=== PATIENT | male | born 1945 | race Caucasian/White ===

== ENCOUNTER 2020-08-06 16:44 | Emergency (ER) | payer OTHER, SELFPAY ==
[2020-08-06 16:46] VITALS: BP 134/66; PULSE 79; RESP 20; TEMP 36.3; O2SAT 97
--- NOTE | 2020-08-06 16:49 | ED.GENADUL_ITS ---
Discharge Plan Disposition Patient Disposition: HOME Condition: Stable Discharge Details Clinical Impression: Hemorrhagic cystitis, Anemia Primary Care Provider: Aurelia Westbrook ED Provider: Olga Pinto Home Meds and New Rx's Prescriptions: New cephalexin 500 mg tablet 500 mg PO BID 7 Days Qty: 14 RF: 0 Continued atorvastatin 40 mg Tablet 40 mg PO DAILY RF: 0 insulin glargine 100 unit/mL Solution 15 unit SUBCUT DAILY RF: 0 aspirin 325 mg Tablet 325 mg PO DAILY RF: 0 cyanocobalamin (vitamin B-12) 1,000 mcg Tablet 1,000 mcg PO DAILY RF: 0 losartan-hydrochlorothiazide [Hyzaar] 100-25 mg Tablet 1 tab PO DAILY RF: 0 amlodipine 10 mg Tablet 10 mg PO DAILY RF: 0 metformin 1,000 mg Tablet 1,000 mg PO BID RF: 0 allopurinol 300 mg Tablet 300 mg PO DAILY RF: 0 Discharge Instructions Instructions: Urinary Tract Infection in Men (ED), Hematuria (ED) Additional Instructions: Please call your urologist or urinary doctor tomorrow as discussed. The CT showed that there is a thickening of your bladder wall, there is also a 2.5 cm lesion on the left kidney, I do feel that close follow-up with urology should be sought out. Please return to the ER if you do not urinate at least once every 4 hours, you feel as your bladder is distended and you cannot pee. Fever, vomiting, weakness or any concerns. Your kidney functions are elevated today with a BUN of 54, creatinine of 2.2 and a GFR of 29.57 please discuss this with your urologist. Follow up with primary care provider in 3-5 days. Return to ED sooner if any worsening or concerns. Increase oral fluids. Referrals: Aruelia Westbrook [Primary Care Provider] - Medical Decision Making <Olga Pinto - Last Filed: 08/06/20 21:27> 1657: Bladder scan by medical staff credentialing coordinator showed 40 cc of urine, Dr. Kapoor assisted with bedside ultrasound to confirm and bladder does not appear to be distended at this time. Report received from Dr. G[facility] by Dr. Kapoor who reports that the last renal function documented in May 2020 with a BUN of 23 and creatinine of 0.76. Today BUN of 54 and creatinine 2.3 with a GFR of 28.09 White blood cells of 2.16, RBCs 2.73, hemoglobin 8.2 and hematocrit 24.6, sodium 133 182: Patient was able to give a urine sample in the urinal, medical staff credentialing coordinator states it is not bloody but tovar in color, output approximately 15cc. 184: Patient able to urinate another approximately 20 cc of urine. Urine shows 15 ketones, large blood, moderate leukocytes at this time it does appear that patient does have hemorrhagic cystitis. He is receiving 500 mL normal saline at this time. Rocephin will be ordered we will recheck his BMP after fluid infusion. Exam: CT Abdomen And Pelvis Without Contrast IMPRESSION: 1. Marked thickening of the bladder wall most suggestive of a urinary tract infection/cystitis. However, neoplasm is not entirely excluded. Consider urology follow-up if clinically indicated. 2. A 2.5 cm hypodense lesion of the left kidney with density measurements of -9 Hounsfield units. While this likely represents a cyst, consider correlation with non emergent renal sonography or abdominal MRI to exclude a solid lesion such as angiomyolipoma or neoplasm. 3. A small 3.3 cm fusiform aneurysm of the infrarenal abdominal aorta. Thank you for allowing us to participate in the care of your patient. Dictated and Authenticated by: Toño Damian MD 2016: Patient has had increased urine output into urinal after receiving fluids. Informed of plan of care to repeat draw lab and most likely disposition will be discharged home. Discussed this CT results with patient who verbalized understanding and states that he will call his urologist tomorrow. Patient was given cephalexin 500 mg twice daily prescription and was given 4 tablets to go home with. Discussed strict return instructions with patient who verbalized understanding. Discussed returning to the ED if unable to urinate at least once every 4 hours, feeling as if bladder is distended and able to urinate, worsening bleeding, fever, vomiting, increased pain or any concerns. Patient verbalized understanding. <Ho Kapoor MD - Last Filed: 08/06/20 17:09> Patient seen, examined [id number], discussed with Blaire Pinto. I agree with her assessment and plan. HPI <Olga Blair - Last Filed: 08/06/20 21:27> General Mode of arrival: EMS . Date/Time Provider Initiated Documentation: 08/06/20 16:45 . Limitations to Documentation: no limitations . Information obtained by: patient and EMS . HPI Narrative: 74-year-old male presents to the ED via EMS with chief complaint of urinary retention problems urinating. He reports began having hesitancy and trouble urinating since Tuesday. Last urine output was early this morning which he reports was bright red. He is complaining of groin tenderness and feeling that he needs to urinate but is unable to. [facility] earlier today where he had some labs drawn they encouraged him to be seen here. He has no other complaints at this time. He does have a past medical history of prostate cancer, type 2 diabetes. Related Data Home Medications Medication Instructions Recorded Confirmed allopurinol 300 mg PO DAILY 08/06/20 08/06/20 amlodipine 10 mg PO DAILY 08/06/20 08/06/20 aspirin 325 mg PO DAILY 08/06/20 08/06/20 atorvastatin 40 mg PO DAILY 08/06/20 08/06/20 cephalexin 500 mg PO BID 7 Days #14 tab 08/06/20 cyanocobalamin (vitamin B-12) 1,000 mcg PO DAILY 08/06/20 08/06/20 insulin glargine 15 unit SUBCUT DAILY 08/06/20 08/06/20 losartan-hydrochlorothiazide 1 tab PO DAILY 08/06/20 08/06/20 [Hyzaar] metformin 1,000 mg PO BID 08/06/20 08/06/20 Previous Rx's Medication Instructions Recorded cephalexin 500 mg PO BID 7 Days #14 tab 08/06/20 Allergies Allergy/AdvReac Type Severity Reaction Status Date / Time No Known Allergies Allergy Unverified 08/06/20 16:48 General Stated Complaint: Urinary KHANG: 3 Review of Systems <Olga Pinto - Last Filed: 08/06/20 21:27> Narrative: Constitutional: Negative for weight loss, alert and oriented, well groomed, normal body habitus, appears comfortable. HEENT: Denies trauma, headaches, blurry vision, nasal discharge, sore throat, trouble swallowing. Chest: Denies chest pain, palpitations, irregular rhythm, hypertension. Respiratory: Denies Shortness of breath, cough, hemoptysis. GI: Denies abdominal pain, nausea, vomiting, diarrhea, constipation. : Denies flank pain, rectal bleeding. Has a history of prostate cancer, reports urinary hesitancy, hematuria, retention. Neuro: Denies dizziness, blurry vision, syncope, headache or facial numbness. Mild generalized weakness and wooziness. Hematologic: Denies easy bruising, intolerance to heat or cold, hair loss. PFSH <Olga Pinto - Last Filed: 08/06/20 21:27> Social History Smoking/Tobacco Use Status: Former Tobacco Use Smoking risk assessment performed?: Yes Substance use type: does not use Do you feel safe at home: Yes Exam <Olga Pinto - Last Filed: 08/06/20 21:27> Narrative Exam Narrative: Constitutional: Alert and oriented x3. Appears stated age. Normal body habitus. Head: Normocephalic, no trauma. Eyes: Pupils PERRLA, Red reflex noted, EOM's intact. Eyelids symmetrical without lesions, discharge, or swelling. ENT: Bilateral TM's WNL, External ear normal to inspection, no mastoid TTP, swelling, or erythema, Nasal turbinates WNL, no nasal discharge. Normal dentition, Posterior pharynx WNL, no exudate. Chest: RRR, Normal S1, S2, distal pulses intact. Resp: Lungs clear to auscultation bilaterally, no wheezes, rales, or rhonchi. Abdominal: Soft, nondistended nontender to palpation all 4 quadrants. Musculoskeletal: Normal gait, 5/5 strength to all four extremities. Skin: No suspicious rashes or lesions. Capillary refill less than 2 sec. Neurologic: Cranial nerves II-XII intact. Alert and oriented x 3. DTR's intact. Hematologic/Lymphatic: No ecchymosis, no lymphadenopathy. Course <Olga Pinto - Last Filed: 08/06/20 21:27> Vital Signs Vital signs: Vital Signs Temperature 36.3 C L 08/06/20 16:46 Pulse 79 08/06/20 16:46 Respiratory Rate 20 08/06/20 16:46 Blood Pressure 134/66 08/06/20 16:46 Pulse Oximetry 97 08/06/20 16:46 Temperature 36.3 C L 08/06/20 16:46 Temperature Source Skin 08/06/20 16:46 Pulse 79 08/06/20 16:46 Respiratory Rate 20 02/03/21 16:46 Blood Pressure 134/66 08/06/20 16:46 Blood Pressure Position Sitting 08/06/20 16:46 Pulse Oximetry 97 08/06/20 16:46 Oxygen Delivery Method Room Air 08/06/20 16:46 Oxygen Flow Rate 0 08/06/20 16:46 Pain Level 7 08/06/20 16:46
[2020-08-06 17:43] LABS: Absolute Eosinophil Count 0.02 10^3/uL (0.0-0.7); HCT 24.6 % (40.0-50.0); HGB 8.2 g/dL (13.5-17.5); MCHC 33.3 % (32.0-36.0); MCV 90.1 fL (80-95); MPV 11.2 fL (8.0-11.0); Platelet Count 178 10^3/uL (130-400); RBC 2.73 10^6/uL (4.36-5.78); RDW 21.8 % (11.8-14.1); RDW-SD 70.4 fL; WBC 2.16 10^3/uL (4.4-10.8)
[2020-08-06 17:56] LABS: ALT 14 U/L (16-63); AST 19 U/L (15-37); Albumin 3.3 g/dL (3.4-5.0); Alkaline Phosphatase 80 U/L (46-116); Anion Gap 12.4 mmol/L (3-11); BUN 54 mg/dL (7-18); Bilirubin, Total 0.6 mg/dL (0.2-1.0); CO2 24.6 mmol/L (21.0-32.0); CREATININE 2.3 mg/dL (0.70-1.30); Calcium 9.2 mg/dL (8.5-10.1); Chloride 96 mmol/L (98-107); Estimated GFR 28.09 (mL/min/1.73m2); Glucose 181 mg/dL (74-106); Potassium 3.7 mmol/L (3.5-5.1); Sodium 133 mmol/L (136-145); Total Protein 7.4 g/dL (6.4-8.2)
--- NOTE | 2020-08-06 18:00 | DI.CT_ITS ---
EXAM: CT RENAL COLIC WO CLINICAL HISTORY: Hematuria, urinary retention. TECHNIQUE: Imaging Protocol: Axial computed tomography images with coronal and sagittal reformatted images were created and reviewed. COMPARISON: No exams were available for comparison FINDINGS: The examination is limited due to patient motion artifact. ABDOMEN: Lung Bases: Normal where visualized. Liver: Normal density. No measurable mass. Gallbladder and biliary tract: Status post cholecystectomy. No biliary ductal dilatation. Pancreas: Normal density, no abnormal calcifications or inflammatory process. Spleen: Normal. Kidneys: Normal size, contour and axis.No radiodense stones or obstructive uropathy. There is a 2.8 c m round hypodense lesion in the mid pole of the left kidney. There is a 0.8 cm hyperdense nodule in the midpole of the right kidney. There is limited evaluation of the structures due to patient motion artifact and lack of IV contrast. Follow-up with renal ultrasound or post-contrast CT scan of the a bdomen is recommended. Adrenal glands: No mass is seen. Lymph nodes: Within normal limits. Abdominal Aorta: There is a 3.4 cm infrarenal abdominal aortic aneurysm. Moderate atherosclerosis is present. PELVIS: Bladder:Incompletely distended. There is thickening of the wall of the urinary bladder. This may be due to underdistention. Bladder outlet obstruction or an inflammatory/infectious cystitis cannot be excluded. Please correlate clinically. Bowel: No obstruction or bowel wall thickening. No evidence of appendicitis. Peritoneal cavity: No ascites, collection or mesenteric inflammatory response. No free air. Reproductive organs: Within normal limits. Bones: Degenerative changes are present. 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 Soft Tissues: Within normal limits. IMPRESSION: 1. No evidence of nephrolithiasis or hydronephrosis. 2. Thickening of the wall of the urinary bladder. This may be due to underdistention however an infe ctious or inflammatory cystitis should be considered. Neoplasm cannot be excluded. Urology consult should be considered if clinically indicated. 3. Two renal lesions as described above. One on each kidney. The cannot be adequately evaluated due to patient motion and lack of IV contrast. While these may represent cysts, nonemergent renal sonog rosy, postcontrast CT scan of the abdomen or MRI should be considered to exclude solid mass. 4. 3.4 cm infrarenal abdominal aortic aneurysm. RADIATION DOSE DELIVERED: 1,041.48mGy.cm Total DLP DATA REPOSITORY: All CT scans at this facility are submitted to the National Radiology Data Registry (NRDR) Dose Index Registry (DIR) with the [employer] [place] [employer] (A[employer]). RADIATION OPTIMIZATION: All CT scans at this facility use at least one of these dose optimization te chniques: automated exposure control; mA and/or kV adjustment per patient size (includes targeted exa ms where dose is matched to clinical indication); or iterative reconstruction.
[2020-08-06 18:27] LABS: Bands % 5
[2020-08-06 18:28] LABS: Absolute Lymphocyte Count 0.86 10^3/uL (1.2-3.4); Atypical Lymphocytes % 5
[2020-08-06 18:30] LABS: Metamyelocytes % 0; Myelocytes % 2; Nucleated RBC 7 %
[2020-08-06 18:31] LABS: Acanthocytes 1+; Anisocytosis 2+; Burr Cells (echinocyte) 2+; Diff Comment Manual Differential; Macrocytosis 1+; Microcytosis 1+; Polychromasia Present; Schistocytes 1+
[2020-08-06 18:32] LABS: Poikilocytes 3+
[2020-08-06 18:38] LABS: Bilirubin Small (Negative); Blood Large (Negative); Clarity Turbid (Clear); Glucose Negative (Negative); Ketones 15 mg/dL (Negative); Leukocyte Esterase Moderate (Negative); Nitrite Negative (Negative); Specific Gravity >= 1.030 (1.005-1.025)
[2020-08-06] MEDS: Normal Saline 1,000 ML 500 ML IV (18:45)
--- NOTE | 2020-08-06 19:05 | NUR.NOTE ---
Nursing Note: Release of information faxed to [facility] for a list of current medications.
[2020-08-06 19:07] LABS: RBC >50 HPF (0-2); WBC >50 HPF (0-5)
[2020-08-06 19:08] LABS: C & S Indicated? Yes
[2020-08-06] MEDS: cefTRIAXone 1 GM/50 ML BAG IVPB (19:27)
[2020-08-06] MEDS: Normal Saline 500 ML IV (19:35)
[2020-08-06 19:45] VITALS: BP 152/72; PULSE 71; RESP 18; O2SAT 98
--- NOTE | 2020-08-06 19:59 | DI.VRAD_ITS ---
PROCEDURE INFORMATION: Exam: CT Abdomen And Pelvis Without Contrast Exam date and time: 08/06/2020 6:28 PM Age: 74 years old Clinical indication: Other: Hematuria, urinary retention TECHNIQUE: Imaging protocol: Computed tomography of the abdomen and pelvis without contrast. COMPARISON: No relevant prior studies available. FINDINGS: Lungs: The visualized lung galvin show mild bibasilar atelectasis. Liver: Normal size and homogeneous density. No liver mass is seen. Gallbladder and bile ducts: No calcified gallstones. No ductal dilation. Pancreas: Normal size and homogeneous density. No ductal dilation. Spleen: Normal. No splenomegaly. Adrenal glands: Normal. No mass. Kidneys and ureters: In the interpolar region of the left kidney, there is a 2.5 cm hypoattenuating lesion with density measurements of -9 Hounsfield units. Stomach and bowel: There is no evidence of small bowel or colonic obstruction. Appendix: The appendix is not identified. There are no secondary signs of acute appendicitis. Intraperitoneal space: No free air. No significant fluid collection. Vasculature: There is atherosclerotic calcification of the abdominal aorta the the contains a 3.3 cm fusiform aneurysm in its infrarenal segment. Lymph nodes: No enlarged retroperitoneal or mesenteric lymph nodes. Urinary bladder: The urinary bladder is only mildly distended by urine. The bladder wall is diffusely thickened. Reproductive: The prostate measures 4.2 cm in transverse dimension. Bones/joints: The bilateral spondylolysis at L4 and mild grade 1 anterolisthesis of L4 on L5. Multilevel degenerative disc disease vacuum disc is noted in the lumbar spine. 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 Soft tissues: Unremarkable. Other findings: Motion artifact degrades multiple images. IMPRESSION: 1. Marked thickening of the bladder wall most suggestive of a urinary tract infection/cystitis. However, neoplasm is not entirely excluded. Consider urology follow-up if clinically indicated. 2. A 2.5 cm hypodense lesion of the left kidney with density measurements of -9 Hounsfield units. While this likely represents a cyst, consider correlation with non emergent renal sonography or abdominal MRI to exclude a solid lesion such as angiomyolipoma or neoplasm. 3. A small 3.3 cm fusiform aneurysm of the infrarenal abdominal aorta. Dictated and Authenticated by: Toño Damian MD. Ordering:ROSMERY Espinoza MD
[2020-08-06 20:13] VITALS: BP 154/46; PULSE 70; RESP 19; TEMP 36.3; O2SAT 97
[2020-08-06 20:47] LABS: BUN 54 mg/dL (7-18); CREATININE 2.2 mg/dL (0.70-1.30); Calcium 8.8 mg/dL (8.5-10.1); Chloride 98 mmol/L (98-107); Estimated GFR 29.57 (mL/min/1.73m2); Glucose 144 mg/dL (74-106); Potassium 3.9 mmol/L (3.5-5.1); Sodium 134 mmol/L (136-145)
[2020-08-06] MEDS: Cephalexin 500 MG CAP, 4 CAPS/BTL PO (21:30)
[2020-08-06 21:33] LABS: Absolute Neutrophil Count 0.63 10^3/uL (1.2-6.7)
--- NOTE | 2020-08-07 15:51 | ED.FU.B_ITS ---
Date of service: 08/07/20 Time of Service: 15:51 Follow Up Plan: Called and spoke with patient who reports he did urinate this morning, but he is again having a difficult time urinating but iis making a small amount. I did stress the importance of returning to the emergency room if continued difficulty urinating or having abdominal pain patient did verbalize understanding. He does not complain of Abdominal pain. [facility]. Spoke with Luna with care management, she is going to contact [facility] to arrange a follow-up appointment with urology within a week. I will call the patient back to let him know the plan.
--- NOTE | 2020-08-07 16:19 | CMPROGNOTE_ITS ---
Care Management Progress Note CM rec'd direct request from Olga, ED provider to support follow up for [facility]. CM called Kylah Ascencio RN CM at the [facility]-reviewed clinical information and need for close follow up. CM faxed clinicals to Kylah, who agreed to coordinate close follow up for [facility] and ensure transportation was attended to as well.
--- NOTE | 2020-08-07 16:19 | PDOC.ERCMPRO ---
Care Management Progress Note CM rec'd direct request from Olga, ED provider to support follow up for [facility] [place]. CM called Kylah Ascencio RN CM at the [facility]-reviewed clinical information and need for close follow up. CM faxed clinicals to Kylah, who agreed to coordinate close follow up for [place] and ensure transportation was attended to as well.
== END 2020-08-06 21:40 | disposition home or self-care (01) ==
PROVIDERS: Emergency Provider Registered Nurse Emergency
DX: N30.81 Other cystitis with hematuria (principal); R93.422 Abnormal radiologic findings on diagnostic imaging of left kidney; R94.4 Abnormal results of kidney function studies
CPT/HCPCS: 36415; 80048; 80053; 87077; 96361; 96365; 99284; 74176; 81003; 81015; 85025; 87086; 87186; J0696

== ENCOUNTER 2020-09-08 18:28 | Observation (INO) | payer OTHER, SELFPAY ==
[2020-09-08] VITALS (9 sets, daily range): BP systolic 135–155; BP diastolic 48–68; PULSE 80–100; RESP 16–22; TEMP 36.8–37.7; O2SAT 93–98
--- NOTE | 2020-09-08 18:30 | ED.GENADUL_ITS ---
Discharge Plan Disposition Patient Disposition: [facility] INPATIENT Condition: Stable Discharge Details Chief Complaint: GenMedical Clinical Impression: Pancytopenia Primary Care Provider: Aurelia Westbrook ED Provider: Kimberly Ghosh Home Meds and New Rx's Prescriptions: No Action atorvastatin 40 mg Tablet 40 mg PO DAILY RF: 0 insulin glargine 100 unit/mL Solution 15 unit SUBCUT DAILY RF: 0 aspirin 325 mg Tablet 325 mg PO DAILY RF: 0 cyanocobalamin (vitamin B-12) 1,000 mcg Tablet 1,000 mcg PO DAILY RF: 0 losartan-hydrochlorothiazide [Hyzaar] 100-25 mg Tablet 1 tab PO DAILY RF: 0 amlodipine 10 mg Tablet 10 mg PO DAILY RF: 0 metformin 1,000 mg Tablet 1,000 mg PO BID RF: 0 allopurinol 300 mg Tablet 300 mg PO DAILY RF: 0 Medical Decision Making Patient is a pleasant 74-year-old male presenting today with chief complaint of pancytopenia. He was sent in by his primary care. Patient comes in via EMS. Patient reports that he has not had any acute change recently but has noted increased shortness of breath, particular with exertion, over the past several weeks. States that he has had approximate 20 pound weight loss in the past 2 months. Patient did undergo recent cystoscopy for hemorrhagic cystitis. States that that his hematuria has since stopped. Denies any fevers or chills. No chest pain. No GI upset. Primary care reported that the pancytopenia has developing over time. Patient has past medical history significant for hyperlipidemia, hypertension, diabetes. On exam, patient appears pale with conjunctival pallor. No intraoral abnormalities. Lungs are clear, normal cardiac exam. He does have bilateral lower extremity edema. 2+ pulses in all extremities. Patient was noted to have low-grade fevers, 37.7. Orally, his temp is 98.9 ?F. He has not had any fevers at home. Plan to repeat the patient's lab was plan for likely transfusion. Labs reviewed. CBC is significant for the suspected pancytopenia. WBC 1.19, hemoglobin 6.1, hematocrit 19.1, platelets 69, ANC 0.7. Patient's creatinine is slightly elevated at 1.15, lipase last month. Magnesium is low at 1.5, no replenished here. BNP is elevated at 544, no previous for comparison. The Consulted with hematology at [facility]. We discussed the patient's new diagnosis of pancytopenia. Also discussed questions low-grade fever. Dr. Arevalo with hematology and I discussed the case. She does not feel that antibiotics are warranted at this time as the patient not have a true fever. He did recommend abnormal lab to begin prior to transfusion. He recommended transfusing 2 units of PRBCs with a goal for hemoglobin over 8. 2 units of PRBCs were ordered. I discussed the risk/benefits as well as potential complications with the patient in regard to transfusion. He voices understanding and wishes to proceed. Patient with patient's comorbidities and Tylenol. For transfusion, feel that inpatient admission would be appropriate. [facility] should decrease his questions. Patient would prefer to stay here. Consult Dr. Munguia who agrees to admission. HPI General Mode of arrival: EMS . Date/Time Provider Initiated Documentation: 09/08/20 18:30 . Limitations to Documentation: no limitations . Information obtained by: patient, RN/MD (Patient's PCP from [place] called prior to his arrival), EMS, RN notes reviewed and old records reviewed (requested from [place]) . HPI Narrative: Patient is a pleasant 74 year old female presenting today with c/c of abnormal blood work. He was contacted by his PCP who advised emergent evaluation. Patient's primary care physician, Dr. Gaines, contacted the department to let us know about the patient coming in. He advised that the patient has pancytopenia. He states that the patient underwent a cystoscopy after having hemorrhagic cystitis in August. Reports that subsequently, he has been having his labs checked there is noted to steady decline in the pancytopenia. He states that he has noted a decline since May of last year. Patient has not been endorsing any complaints in regard to this. Currently, patient states that he is feeling at baseline. He states that he is feeling slightly short of breath but this is been chronic over the past few months. He reports a 20 pound weight loss over the past 2 months that was unintentional. No change in his appetite. Denies any chest pain. No rash. Denies any abdominal pain. No nausea, vomiting, diarrhea. No change in bowel habits. States that the hematuria has stopped. She denies any recent fevers or chills. No known sick contacts. No recent travel. Related Data Home Medications Medication Instructions Recorded Confirmed allopurinol 300 mg PO DAILY 08/06/20 09/08/20 amlodipine 10 mg PO DAILY 08/06/20 09/08/20 aspirin 325 mg PO DAILY 08/06/20 09/08/20 atorvastatin 40 mg PO DAILY 08/06/20 09/08/20 cyanocobalamin (vitamin B-12) 1,000 mcg PO DAILY 08/06/20 09/08/20 insulin glargine 15 unit SUBCUT DAILY 08/06/20 09/08/20 losartan-hydrochlorothiazide 1 tab PO DAILY 08/06/20 09/08/20 [Hyzaar] metformin 1,000 mg PO BID 08/06/20 09/08/20 Allergies Allergy/AdvReac Type Severity Reaction Status Date / Time No Known Allergies Allergy Unverified 09/08/20 18:33 General KHANG: 3 Review of Systems Constitutional Constitutional: Reports as per HPI, Denies chills, Denies fever(s), Denies headache(s), Denies lethargy and Denies poor appetite Eyes Eyes: Denies change in vision ENT Ears, Nose, Mouth, and Throat: Denies dizziness and Denies headache(s) Cardiovascular Cardiovascular: Reports as per HPI, Denies dyspnea and Denies dyspnea on exertion Respiratory Respiratory: Reports as per HPI, Denies chest congestion, Denies cough, Denies pain on inspiration, Denies pain with cough, Denies dyspnea, Denies dyspnea on exertion and Denies wheezing Gastrointestinal Gastrointestinal: Reports as per HPI, Denies abdominal pain, Denies diarrhea, Denies nausea and Denies vomiting Genitourinary Genitourinary: Denies system reviewed and no additional complaints, except as documented (denies change in urinary habits) Musculoskeletal Musculoskeletal: Reports as per HPI and Denies back pain Integumentary/Breasts Skin/Breast: Reports as per HPI and Denies rash Neurologic Neurologic: Reports as per HPI, Denies dizziness and Denies headache(s) Allergic/Immunologic Allergic/Immunologic: Denies wheezing [facility], [facility] Social History Smoking/Tobacco Use Status: Former Tobacco Use Smoking risk assessment performed?: Yes Alcohol Intake: former Substance use type: does not use Do you feel safe at home: Yes Do you feel safe in your relationship?: Yes Exam Const General: cooperative, healthy appearing, comfortable, no acute distress and well developed Nutritional Appearance: well nourished and overweight Orientation: alert, awake and oriented x3 [facility] Head: normal to inspection Ears: hearing grossly normal bilaterally Face and sinus: normal facial exam Mouth: oral mucosae normal, lip normal, tongue normal and moist mucous membranes Eyes Conjunctivae: conjunctival abnormality bilaterally pallor Chest Chest: normal inspection of the chest, normal palpation of entire chest wall and no crepitus Resp Effort & Inspection: normal respiratory effort, able to speak in complete sentences and no respiratory distress Auscultation: clear to auscultation bilaterally, no rales, no rhonchi and no wheezes Cardio Rate: regular rate Rhythm: regular rhythm Heart Sounds: S1 normal and S2 normal GI Inspection: normal to inspection, no edema and non-distended Palpation: soft, no hepatosplenomegaly, not firm, no guarding, not rigid and nontender Auscultation: normal bowel sounds Back/Spine/Pelvis Back: no CVA tenderness Thoracic/Lumbar Spine: thoracic and lumbar spine normal to inspection Skin General skin exam: no rashes or lesions noted Trauma: no lacerations or abrasions Neuro General: patient alert, patient awake and patient oriented x3 Cognition: normal cognition Speech: speech normal Extrem General: normal to inspection, capillary refill normal, pedal edema present (BLE edema) and no calf tenderness Psych Appearance: grossly normal and well kempt Mental Status: mental status grossly normal Speech and Movement: speech and movement normal
--- NOTE | 2020-09-08 18:30 | DI.RAD_ITS ---
EXAM: XR CHEST 2V PA LATERAL CLINICAL HISTORY: febrile, pancytopenia TECHNIQUE: 2D digital imaging was performed. COMPARISON: No exams were available for comparison FINDINGS: MEDIASTINUM: Normal. HEART: Normal. PULMONARY VASCULATURE: Within normal limits. LUNGS: Increased lung markings in the right base which may represent pneumonia or atelectasis. Nodula r opacity projected in the left lung apex. This may represent a confluence of structures versus a pul monary mass. PLEURAL SPACE: No pleural effusion or pneumothorax. BONE:[facility] in the thoracic spine. OTHER FINDINGS:Normal. IMPRESSION: 1. Infiltrate suspected in the right lung base which may represent pneumonia. 2. Nodular opacity in the left lung apex. This may represent a complex of structures versus a pulmon carlo mass. A CT scan of the chest should be considered for further evaluation. DATA REPOSITORY: RADIATION DOSE DELIVERED:
--- NOTE | 2020-09-08 18:45 | RT.EKG_ITS ---
APPROVED REPORT Exam: Resting ECG Patient Location: E HR:93 bpm ECG Measurements Heart Rate 93 AXIS AZ 171 P 38 QRSd 91 QRS 8 QT 348 T 90 QTc 434 Conclusion Sinus rhythm. Nonspecific T abnormalities, lateral leads.
[2020-09-08 19:04] LABS: Abs Immature Grans 0.02 10^3/uL (0.0-0.06); MCH 29.2 pg (27.0-33.0); MCHC 31.9 % (32.0-36.0); MCV 91.4 fL (80-95); MPV 10.4 fL (8.0-11.0); Nucleated RBC 0 %; Platelet Count 69 10^3/uL (130-400); RBC 2.09 10^6/uL (4.36-5.78); RDW 20.9 % (11.8-14.1)
[2020-09-08 19:11] LABS: WBC 1.19 10^3/uL (4.4-10.8)
[2020-09-08 19:12] LABS: HCT 19.1 % (40.0-50.0); HGB 6.1 g/dL (13.5-17.5)
[2020-09-08 19:16] LABS: ALT 15 U/L (16-63); AST 8 U/L (15-37); Albumin 3.5 g/dL (3.4-5.0); Alkaline Phosphatase 97 U/L (46-116); Anion Gap 11.8 mmol/L (3-11); BUN 27 mg/dL (7-18); Bilirubin, Total 0.4 mg/dL (0.2-1.0); CO2 26.2 mmol/L (21.0-32.0); CREATININE 1.5 mg/dL (0.70-1.30); Calcium 8.7 mg/dL (8.5-10.1); Chloride 101 mmol/L (98-107); Glucose 180 mg/dL (74-106); Magnesium 1.5 mg/dL (1.8-2.4); Potassium 4.2 mmol/L (3.5-5.1); Sodium 139 mmol/L (136-145); Total Protein 7.6 g/dL (6.4-8.2)
[2020-09-08 19:20] LABS: INR 1.1 (0.9-1.1); PTT Activated 22.9 sec (21.0-27.5); Prothrombin Time 11.1 sec (9.3-11.0)
[2020-09-08 19:26] LABS: Absolute Lymphocyte Count 1.05 10^3/uL (1.2-3.4); Absolute Monocyte Count 0.07 10^3/uL (0.1-0.8); Absolute Neutrophil Count 0.07 10^3/uL (1.2-6.7); Anisocytosis 2+; Diff Comment Manual Differential
[2020-09-08 19:27] LABS: Polychromasia Present
[2020-09-08 19:28] LABS: Poikilocytes 2+
[2020-09-08 19:35] LABS: NT-proBNP 544 pg/mL (<300); Troponin I < 0.05 ng/mL (<0.06)
--- NOTE | 2020-09-08 20:21 | DI.VRAD_ITS ---
PROCEDURE INFORMATION: Exam: XR Chest Exam date and time: 09/08/2020 7:51 PM Age: 74 years old Clinical indication: Fever; Patient HX: Febrile, pancytopenia TECHNIQUE: Imaging protocol: XR of the chest Views: 2 views. Total images: 2 COMPARISON: No relevant prior studies available. FINDINGS: Lungs: Normal pulmonary expansion. Pulmonary vasculature grossly normal. Alveolar opacity in the posterior left lower lobe concerning for pneumonia. Pleural spaces: No pleural effusion. No pneumothorax. Heart/Mediastinum: Heart size normal. No tracheal/mediastinal shift. Bones/joints: No acute osseous abnormalities are identified. Osteopenia. Bridging ossification across multiple mid and lower thoracic spine segments suggesting diffuse idiopathic skeletal hyperostosis (DISH). IMPRESSION: Right basilar airspace disease concerning for pneumonia. Dictated and Authenticated by: Varun Aburto MD. Ordering:MANDI Harris MD
--- NOTE | 2020-09-08 21:21 | W.PM.HP.N ---
Date of service: 09/08/20 Time of Service: 21:21 Assessment and Plan Assessment and plan (1) Pancytopenia: Status: Acute Assessment and plan: Pancytopenia. Unknown etiology, will need BM biopsy. The weight loss indicates high likliehood tumor. Will transfuse the 2 units and await arrangements for biopsy. History of Present Illness History of Present Illness Chief Complaint: pancytopenia Narrative: 74 male sent to ER by PCP for pancytopenia. PCP has been tracking labs since May, steady decline, and felt that results today required emergent evaluation. In ER findings of note for temp to 37.7, white count 1.1 (ANC 70), HCT 21 and platelets 69. Patient does report some chronic SOB and also endorses 20 lb weight loss over past several months. [facility]he [facility] stay here). Case reviewed with [facility] heme-onc, advises no antibiotic required for low grade fever and will need bone marrow biopsy. Ordered for transfusion pRBC x 2 and admitted for further management. Review of Systems All systems reviewed & are unremarkable except as noted in HPI and below PFSH Social History Smoking/Tobacco Use Status: Former Tobacco Use Smoking risk assessment performed?: Yes Alcohol Intake: former Substance use type: does not use Do you feel safe at home: Yes Do you feel safe in your relationship?: Yes Meds Home Medications and Allergies Allergies Allergy/AdvReac Type Severity Reaction Status Date / Time No Known Allergies Allergy Unverified 09/08/20 18:33 Home Medications Medication Instructions Recorded Confirmed Type allopurinol 300 mg PO DAILY 08/06/20 09/08/20 History amlodipine 10 mg PO DAILY 08/06/20 09/08/20 History aspirin 325 mg PO DAILY 08/06/20 09/08/20 History atorvastatin 40 mg PO DAILY 08/06/20 09/08/20 History cyanocobalamin (vitamin B-12) 1,000 mcg PO DAILY 08/06/20 09/08/20 History insulin glargine 15 unit SUBCUT DAILY 08/06/20 09/08/20 History losartan-hydrochlorothiazide 1 tab PO DAILY 08/06/20 09/08/20 History [Hyzaar] metformin 1,000 mg PO BID 08/06/20 09/08/20 History Exam Narrative Exam Narrative: 140/52, 85, 37 (37.7 max), 16, 93 % RA. HEENT atraumatic; neck supple; lungs clear; heart RRR abdomen soft, NT w/o HSM; extremities 1+ pedal edema; neuro Ox3, moves all 4s; no lymphadenopathy Results Labs Result diagrams: 09/08/20 18:50 09/08/20 18:50 Labs: Laboratory Results - last 24 hr 09/08/20 09/08/20 09/08/20 18:50 18:50 18:50 WBC 1.19 L* RBC 2.09 L Hgb 6.1 L* Hct 19.1 L* MCV 91.4 MCH 29.2 MCHC 31.9 L RDW 20.9 H Plt Count 69 L MPV 10.4 Immature Gran % 0.0 Neutrophils % 6.0 Lymphocytes % 88.0 Monocytes % 6.0 Eosinophils % 0.0 Basophils % 0.0 Nucleated RBC % 0 Absolute Neutrophils 0.07 L* Absolute Lymphocytes 1.05 L Absolute Monocytes 0.07 L Absolute Eosinophils 0.00 Absolute Basophils 0.00 RBC Morphology See below Polychromasia Present Poikilocytosis 2+ Anisocytosis 2+ PT 11.1 H INR 1.1 APTT 22.9 Sodium 139 Potassium 4.2 Chloride 101 Carbon Dioxide 26.2 Anion Gap 11.8 H BUN 27 H Creatinine 1.5 H Estimated GFR/1.73 m2 46.00 Glucose 180 H Calcium 8.7 Magnesium 1.5 L Total Bilirubin 0.4 AST 8 L ALT 15 L Alkaline Phosphatase 97 Troponin I NT-Pro-B Natriuret Pep Total Protein 7.6 Albumin 3.5 Patient ABO/Rh Antibody Screen Crossmatch 09/08/20 09/08/20 18:50 18:50 WBC RBC Hgb Hct MCV MCH MCHC RDW Plt Count MPV Immature Gran % Neutrophils % Lymphocytes % Monocytes % Eosinophils % Basophils % Nucleated RBC % Absolute Neutrophils Absolute Lymphocytes Absolute Monocytes Absolute Eosinophils Absolute Basophils RBC Morphology Polychromasia Poikilocytosis Anisocytosis PT INR APTT Sodium Potassium Chloride Carbon Dioxide Anion Gap BUN Creatinine Estimated GFR/1.73 m2 Glucose Calcium Magnesium Total Bilirubin AST ALT Alkaline Phosphatase Troponin I < 0.05 NT-Pro-B Natriuret Pep 544 H Total Protein Albumin Patient ABO/Rh A Positive Antibody Screen Negative Crossmatch See Detail Last Vital Signs Temp 37.7 C H 09/08/20 18:29 Pulse 100 H 09/08/20 18:29 Resp 22 09/08/20 18:34 BP 153/67 H 09/08/20 18:29 Pulse Ox 97 09/08/20 18:29 COVID-19 Screening Have you, or household traveled for leisure in last 14 days?: No Had IN PERSON contact w/suspected or confirmed C-19 person: No
[2020-09-08 21:57] LABS: Source Nasal/Nares
[2020-09-08 22:14] LABS: Iron 116 ug/dL (65-175); Total Iron Binding Capacity 239 ug/dL (250-450); Transferrin Sat 49 % (20-55)
[2020-09-08 22:34] LABS: Bilirubin Negative (Negative); Blood Negative (Negative); Clarity Clear (Clear); Glucose Negative (Negative); Ketones Trace mg/dL (Negative); Leukocyte Esterase Negative (Negative); Nitrite Negative (Negative); Specific Gravity 1.025 (1.005-1.025); pH 5.5 (5-8)
[2020-09-08 22:41] LABS: Folate 11.9 ng/mL (8.6-20.0); TSH (W/Ref FT4) 2.04 uIU/mL (0.36-3.74); Vitamin B12 699 pg/mL (193-986)
[2020-09-08 22:41] LABS: COVID-19 PCR Negative (Negative); Influenza A PCR Negative (Negative); Influenza B PCR Negative (Negative); RSV PCR Negative (Negative)
[2020-09-08 22:42] LABS: Bacteria Negative HPF (Negative); C & S Indicated? No; Casts 0-2 Hyaline LPF (Negative); Crystals Negative HPF (Negative); Epithelial Cells Negative HPF (Negative); Mucus Negative (Negative); RBC Negative HPF (0-2); WBC Negative HPF (0-5)
[2020-09-09] VITALS (18 sets, daily range): BP systolic 116–166; BP diastolic 51–89; PULSE 74–85; RESP 16–18; TEMP 36.4–37; O2SAT 81–99
[2020-09-09 07:06] LABS: Abs Immature Grans 0.02 10^3/uL (0.0-0.06); HCT 22.3 % (40.0-50.0); HGB 7.3 g/dL (13.5-17.5); MCH 28.9 pg (27.0-33.0); MCHC 32.7 % (32.0-36.0); MCV 88.1 fL (80-95); MPV 10.7 fL (8.0-11.0); Nucleated RBC 0 %; RBC 2.53 10^6/uL (4.36-5.78); RDW 19.5 % (11.8-14.1); RDW-SD 62.1 fL
[2020-09-09 07:40] LABS: Absolute Lymphocyte Count 0.78 10^3/uL (1.2-3.4)
[2020-09-09 07:41] LABS: Absolute Basophil Count 0.02 10^3/uL (0.0-0.2); Absolute Monocyte Count 0.03 10^3/uL (0.1-0.8)
[2020-09-09 07:42] LABS: Absolute Neutrophil Count 0.03 10^3/uL (1.2-6.7); WBC 0.87 10^3/uL (4.4-10.8)
[2020-09-09 07:43] LABS: Platelet Count 58 10^3/uL (130-400)
[2020-09-09] MEDS: Allopurinol 300 MG TAB PO (08:43)
[2020-09-09] MEDS: hydroCHLOROthiazide 25 MG TAB PO (08:43)
[2020-09-09] MEDS: metFORMIN 500 MG TAB 1000 MG PO ×2 (08:43→17:00)
[2020-09-09] MEDS: amLODIPine 10 MG TAB PO (08:43)
[2020-09-09] MEDS: Atorvastatin 40 MG TAB PO (08:43)
[2020-09-09] MEDS: Aspirin 325 MG TAB PO (08:43)
[2020-09-09 12:28] LABS: Diff Comment Manual Differential
[2020-09-09 12:29] LABS: Anisocytosis 2+; Microcytosis 2+; Poikilocytes 2+
[2020-09-09] MEDS: Losartan 50 MG TAB 100 MG PO (13:08)
--- NOTE | 2020-09-09 13:15 | PGE_ITS ---
Date of Service Date of service: 09/09/20 Time of Service: 13:15 Assessment and Plan Assessment and plan (1) Pancytopenia: Status: Acute Assessment and plan: Transfuse 1 more unit of packed red cells to hemoglobin above 8 g. Consult with hematology regarding further work-up for probable myelodysplastic syndrome. Subjective Subjective Interval history since last seen: Patient was admitted last night with pancytopenia. Patient is followed by Dr. Tahir Gaines to the [facility]. Patient is also followed at [facility]. Patient states she was told to come into the hospital because she had low blood count. He has no symptoms of fever chills or night sweats although he does note a 20 pound weight loss over the last 6 months. Patient had a recent cystoscopy performed at [place] reportedly for hemorrhagic cystitis. Otherwise the patient denies any bleeding such as epistaxis melena or hematochezia. He has no chest pain. He has had some exertional dyspnea. He received 2 units of packed red blood cells overnight. His white blood cell count was 1100 last night dropped to 870. Platelet counts were at 69,000 with dropped to 58,000. His ANC last night was 70 and is now down to 30. His hemoglobin carol[place] from 6.1 g to 7.3 g overnight with hematocrit 22%. I tried to reach out to his primary care provider, Dr. Tahir Gaines, at the [facility] however cannot reach a person I did leave a message for him to call me back. In the interim I have reached out to [facility] requesting for hematology consultation. We talked with the patient about his pancytopenia. He has not had a bone marrow biopsy. He denies any night sweats or fevers or chills. He underwent PCR testing for SARS-CoV-2 2 days ago and that was negative. We talked about another transfusion and he is agreeable to the same. I really feel that he needs an urgent bone marrow biopsy to make a diagnosis. It appears that he has myelodysplastic syndrome. Exam Narrative Exam Narrative: Obese elderly male in no acute distress he is alert and oriented person place time circumstance. HEENT is unremarkable there is no epistaxis. Neck is supple nontender no cervical lymphadenopathy no JVD Lungs are clear to auscultation No axillary adenopathy Heart regular rate and rhythm without murmur rub or gallop Abdomen is obese soft nontender no bruits no palpable organomegaly and no inguinal lymphadenopathy Objective Last Vital Signs Temp 36.4 C L 09/09/20 08:41 Pulse 85 09/09/20 08:41 Resp 16 09/09/20 08:41 BP 153/82 H 09/09/20 08:41 Pulse Ox 99 09/09/20 08:41 Laboratory Results - last 24 hr 09/08/20 09/08/20 09/08/20 18:50 18:50 18:50 WBC 1.19 L* RBC 2.09 L Hgb 6.1 L* Hct 19.1 L* MCV 91.4 MCH 29.2 MCHC 31.9 L RDW 20.9 H Plt Count 69 L MPV 10.4 Reticulocyte % (Auto) Immature Gran % 0.0 Neutrophils % 6.0 Lymphocytes % 88.0 Monocytes % 6.0 Eosinophils % 0.0 Basophils % 0.0 Nucleated RBC % 0 Absolute Neutrophils 0.07 L* Absolute Lymphocytes 1.05 L Absolute Monocytes 0.07 L Absolute Eosinophils 0.00 Absolute Basophils 0.00 RBC Morphology See below Polychromasia Present Poikilocytosis 2+ Anisocytosis 2+ Microcytosis PT 11.1 H INR 1.1 APTT 22.9 Sodium 139 Potassium 4.2 Chloride 101 Carbon Dioxide 26.2 Anion Gap 11.8 H BUN 27 H Creatinine 1.5 H Estimated GFR/1.73 m2 46.00 Glucose 180 H Calcium 8.7 Magnesium 1.5 L Iron TIBC Transferrin % Sat Total Bilirubin 0.4 AST 8 L ALT 15 L Alkaline Phosphatase 97 Troponin I NT-Pro-B Natriuret Pep Total Protein 7.6 Albumin 3.5 Vitamin B12 Folate TSH Urine Color Urine Clarity Urine pH Ur Specific [place] Urine Protein Urine Ketones Urine Blood Urine Nitrite Urine Bilirubin Urine Urobilinogen Ur Leukocyte Esterase Urine RBC Urine WBC Ur Epithelial Cells Urine Crystals Urine Bacteria Urine Casts Urine Mucus Ur Culture Indicated? Urine Glucose COVID-19 Source SARS-CoV-2 (PCR) Influenza Type A (PCR) Influenza Type B (PCR) RSV (PCR) Patient ABO/Rh Antibody Screen Crossmatch 09/08/20 09/08/20 09/08/20 18:50 18:50 18:50 WBC RBC Hgb Hct MCV MCH MCHC RDW Plt Count MPV Reticulocyte % (Auto) Immature Gran % Neutrophils % Lymphocytes % Monocytes % Eosinophils % Basophils % Nucleated RBC % Absolute Neutrophils Absolute Lymphocytes Absolute Monocytes Absolute Eosinophils Absolute Basophils RBC Morphology Polychromasia Poikilocytosis Anisocytosis Microcytosis PT INR APTT Sodium Potassium Chloride Carbon Dioxide Anion Gap BUN Creatinine Estimated GFR/1.73 m2 Glucose Calcium Magnesium Iron 116 TIBC 239 L Transferrin % Sat 49 Total Bilirubin AST ALT Alkaline Phosphatase Troponin I < 0.05 NT-Pro-B Natriuret Pep 544 H Total Protein Albumin Vitamin B12 Folate TSH Urine Color Urine Clarity Urine pH Ur Specific [place]riot Urine Protein Urine Ketones Urine Blood Urine Nitrite Urine Bilirubin Urine Urobilinogen Ur Leukocyte Esterase Urine RBC Urine WBC Ur Epithelial Cells Urine Crystals Urine Bacteria Urine Casts Urine Mucus Ur Culture Indicated? Urine Glucose COVID-19 Source SARS-CoV-2 (PCR) Influenza Type A (PCR) Influenza Type B (PCR) RSV (PCR) Patient ABO/Rh A Positive Antibody Screen Negative Crossmatch See Detail 09/08/20 09/08/20 09/08/20 18:50 18:50 21:45 WBC RBC Hgb Hct MCV MCH MCHC RDW Plt Count MPV Reticulocyte % (Auto) Cancelled Immature Gran % Neutrophils % Lymphocytes % Monocytes % Eosinophils % Basophils % Nucleated RBC % Absolute Neutrophils Absolute Lymphocytes Absolute Monocytes Absolute Eosinophils Absolute Basophils RBC Morphology Polychromasia Poikilocytosis Anisocytosis Microcytosis PT INR APTT Sodium Potassium Chloride Carbon Dioxide Anion Gap BUN Creatinine Estimated GFR/1.73 m2 Glucose Calcium Magnesium Iron TIBC Transferrin % Sat Total Bilirubin AST ALT Alkaline Phosphatase Troponin I NT-Pro-B Natriuret Pep Total Protein Albumin Vitamin B12 699 Folate 11.9 TSH 2.04 Urine Color Urine Clarity Urine pH Ur Specific [place] Urine Protein Urine Ketones Urine Blood Urine Nitrite Urine Bilirubin Urine Urobilinogen Ur Leukocyte Esterase Urine RBC Urine WBC Ur Epithelial Cells Urine Crystals Urine Bacteria Urine Casts Urine Mucus Ur Culture Indicated? Urine Glucose COVID-19 Source Nasal/nares SARS-CoV-2 (PCR) Negative Influenza Type A (PCR) Negative Influenza Type B (PCR) Negative RSV (PCR) Negative Patient ABO/Rh Antibody Screen Crossmatch 09/08/20 09/09/20 22:25 06:48 WBC 0.87 L* RBC 2.53 L Hgb 7.3 L Hct 22.3 L MCV 88.1 D MCH 28.9 MCHC 32.7 RDW 19.5 H Plt Count 58 L MPV 10.7 Reticulocyte % (Auto) Immature Gran % 0.0 Neutrophils % 4.0 Lymphocytes % 90.0 Monocytes % 4.0 Eosinophils % 0.0 Basophils % 2.0 Nucleated RBC % 0 Absolute Neutrophils 0.03 L* Absolute Lymphocytes 0.78 L Absolute Monocytes 0.03 L Absolute Eosinophils 0.00 Absolute Basophils 0.02 RBC Morphology See below Polychromasia Poikilocytosis 2+ Anisocytosis 2+ Microcytosis 2+ PT INR APTT Sodium Potassium Chloride Carbon Dioxide Anion Gap BUN Creatinine Estimated GFR/1.73 m2 Glucose Calcium Magnesium Iron TIBC Transferrin % Sat Total Bilirubin AST ALT Alkaline Phosphatase Troponin I NT-Pro-B Natriuret Pep Total Protein Albumin Vitamin B12 Folate TSH Urine Color Yellow Urine Clarity Clear Urine pH 5.5 Ur Specific [place]riot 1.025 Urine Protein Trace H Urine Ketones Trace H Urine Blood Negative Urine Nitrite Negative Urine Bilirubin Negative Urine Urobilinogen 2.0 H Ur Leukocyte Esterase Negative Urine RBC Negative Urine WBC Negative Ur Epithelial Cells Negative Urine Crystals Negative Urine Bacteria Negative Urine Casts 0-2 hyaline Urine Mucus Negative Ur Culture Indicated? No Urine Glucose Negative COVID-19 Source SARS-CoV-2 (PCR) Influenza Type A (PCR) Influenza Type B (PCR) RSV (PCR) Patient ABO/Rh Antibody Screen Crossmatch
[2020-09-09] MEDS: Insulin Glargine 100 UNITS/ML UNIT 15 UNITS SC (14:30)
[2020-09-09] MEDS: Cyanocobalamin 500 MCG TAB 1000 MCG PO (14:56)
--- NOTE | 2020-09-09 15:06 | INITIAL_ITS ---
- If Service Date Differs Date of service: 09/09/20 Time of Service: 15:06 Care Management Initial Assess REASON FOR HOSPITALIZATION:: Pancytopenia PAST MEDICAL HISTORY/PAST SURGICAL HISTORY:: No significant medical history listed PREVIOUS FUNCTIONAL STATUS/SOCIAL/FAMILY SUPPORTS:: Mariana lives at the [facility], alone. His sister lives in [place], but he has local cousins in [place]. He reports having an eigth grade education, but joining the [employer] at age 21. 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 He is independent with his ADL's, but does admit to his health declining in the recent past. He is [facility] connected. CURRENT FUNCTIONAL STATUS:: Mariana was sitting up in his chair when CM met with him. He reported that he was feeling ok today, and was awaiting the MD to let him know if he will be transferred to [facility]. He was pleasant and forthcoming with information. Per report, he will receive additional units of packed red cells today. [facility] has been consulted. CM will continue to follow. ADVANCE DIRECTIVES:: On file, Meredith Barrientos listed as agent. Has patient been provided with info about the portal/API?: Yes Did the patient sign up for the portal?: No CODE STATUS:: Full Code INSURANCE COVERAGE / FINANCIAL ISSUES:: [facility]/ [facility] Health plans of [place]/ [place] CURRENT HOME/COMMUNITY SERVICES/EQUIPMENT:: No current services or equipment. PRIMARY CARE PHYSICIAN:: Aurelia Westbrook POTENTIAL DISCHARGE NEEDS:: Evaluation for further needs, follow up appointments PATIENT/FAMILY EDUCATION NEEDS:: Review discharge instructions regarding activity levels and medications, discussion of self care needs and goals of care. ANTICIPATED BARRIERS TO DISCHARGE:: None identified. TRANSPORTATION:: Via private vehicle by friend vs RCT PLAN:: Mariana may be transferred to [facility] if accepted. If not, he will be referred for an outpatient bone marrow biopsy. He will return home when medically cleared. He will be driven home via private vehicle by a friend vs RCT. He will follow up with his PCP and discharge plan of care. CM will continue to follow.
[2020-09-09] MEDS: Acetaminophen 325 MG TAB 650 MG PO (16:23)
[2020-09-09] MEDS: diphenhydrAMINE 25 MG CAP PO (16:23)
[2020-09-09] MEDS: Fluconazole 100 MG TAB 200 MG PO (17:52)
--- NOTE | 2020-09-09 18:24 | DSE_ITS ---
Date of service: 09/09/20 Time of Service: 18:24 DS: Diagnosis Discharge Diagnosis (1) Pancytopenia: Status: Acute Asessment and Plan: Pancytopenia of unknown determine origin however myelodysplastic syndrome is highly suspected. Patient received transfusion of 3 units of packed red cells while here at [facility]. 2 units were given on September 08, 2020 and 1 unit on September 09, 2020. (2) Neutropenia: Status: Acute Asessment and Plan: Patient had worsening neutropenia and was given oral antibiotic prophylaxis with Diflucan and Levaquin. Discharge Plan Disposition Patient Disposition: [facility] Condition: Stable Discharge Details Reason For Visit: PANCYTOPENIA Admit Date/Time: 09/08/20 21:35 Admit Provider: Mack Munguia Attending Provider: Mack Munguia Primary Care Provider: Aurelia Westbrook [facility] Hospital Course: 74-year-old male with history of type 2 diabetes mellitus on insulin and essential hypertension and hyperlipidemia who is followed by Dr. Tahir Gaines through the [facility] in [facility]. Patient was recently diagnosed with leukopenia and anemia on routine CBC done August 06, 2020. Dr. Gaines had been try to get the patient back into get a follow-up CBC but because the patient's had transportation issues between [facility] in [facility] the patient has not been back in for follow-up visit. Patient underwent outpatient lab work done yesterday and Dr. Gaines called the patient and told him to go to the nearest emergency room because he had pancytopenia. Patient presented emergency department last night with his only symptoms being exertional dyspnea. He denies any cough or sputum production and no fever or chills or rigors or night sweats. He admits that he had some recent hematuria for which he underwent a cystoscopy last week for evaluation of hemorrhagic cystitis. His admission CBC last night showed a white count of 1190 with neutropenia of 70 and anemia with a hemoglobin of 6.1 g and hematocrit 19% with a platelet count 69,000. No blasts were seen on the CBC. Follow-up CBC this morning after blood transfusion of 2 units of packed red cells revealed a hemoglobin of 7.3 g and hematocrit 22%. His white cell count fell further today 870 with an ANC of 30. Chest 2 Views, admission last night suggested right basilar airspace disease concerning for pneumonia versus atelectasis. However the patient has had no symptoms of cough or sputum production and no fever. Patient was treated prophylactically with 200 mg of Diflucan and 500 mg of Levaquin for neutropenic precautions. He was given 1 additional unit of packed red cells on the day of discharge. Transfer center at [facility] was contacted by the ER attending Kimberly Ghosh who spoke with hematology at [facility] and per telephone consultation with Dr. Arevalo no antibiotics were advised on admission and they declined to ta ke the patient in transfer but recommend the patient be admitted here at [facility] for blood transfusion. I subsequently contacted the transfer center at [facility] on September 09, 2020 and spoke with the hematology fellow who agreed that the patient needed a bone marrow biopsy but because [facility] was full and could not take any transfers suggested that I reach out to the [facility] and[facility]or [facility]. I attempted to reach the [facility] [place] but when I was unable to reach the transfer center Dr. Tahir Gaines the patient's attending from [facility] who is contacted me offered to intervene and after he contacted [place] I was then called by Dr. Darrick Del Toro who after he reviewed the case and agreed that the patient needs urgent bone marrow biopsy to make a diagnosis and begin definitive treatment. On the day of discharge patient was prophylaxed with Diflucan 200 mg x 1 dose as well as Levaquin 500 mg orally x1 dose. Again the patient has no symptoms of infection Home Meds and New Rx's Prescriptions: No Action atorvastatin 40 mg Tablet 40 mg PO DAILY RF: 0 insulin glargine 100 unit/mL Solution 15 unit SUBCUT DAILY RF: 0 aspirin 325 mg Tablet 325 mg PO DAILY RF: 0 cyanocobalamin (vitamin B-12) 1,000 mcg Tablet 1,000 mcg PO DAILY RF: 0 losartan-hydrochlorothiazide [Hyzaar] 100-25 mg Tablet 1 tab PO DAILY RF: 0 amlodipine 10 mg Tablet 10 mg PO DAILY RF: 0 metformin 1,000 mg Tablet 1,000 mg PO BID RF: 0 allopurinol 300 mg Tablet 300 mg PO DAILY RF: 0 Discharge Instructions Instructions: Neutropenia (DC), Pancytopenia (DC) Activity:: Activity as Tolerated Equipment/Supplies:: No Equipment Needed Diet:: Normal Diet Discharge Orders Discharge Orders: Discharge Order (Routine); Ordered 09/09/20 Ordered By: Johnny Cassidy DS: Summary Time Spent with Patient providing and/or coordinating discharge services: Greater than 30 minutes Status at Discharge Functional status at discharge: independent ambulation Overall status at discharge: patient is not back to baseline Mental Status: mental status grossly normal Speech and Movement: speech and movement normal Mood: congruent mood Affect: normal affect Exam Narrative Exam Narrative: Elderly obese male who is alert and oriented person place time circumstance in no discomfort and not dyspneic. He is able to talk in complete paragraphs. HEENT is unremarkable there is no epistaxis oropharynx noninjected no exudate neck is supple nontender no JVD no lymphadenopathy. Axilla without adenopathy Lungs are clear to auscultation Heart regular rate and rhythm Abdomen is obese soft and nontender no palpable organomegaly No inguinal adenopathy Lower extremities without peripheral cyanosis or edema. Right great toe with hallux valgus deformity and callus. Skin without petechiae he has a small bruise over the right antecubital space where a peripheral IV was started. Psych Mental Status: mental status grossly normal Speech and Movement: speech and movement normal Mood: congruent mood Affect: normal affect DS: Data Vitals/I&O Vitals and I&O: Vital Signs Temperature 36.9 C 09/09/20 17:35 Temperature Source Tympanic 09/09/20 16:35 Pulse 74 09/09/20 17:35 Pulse Rhythm Regular 09/09/20 08:40 Respiratory Rate 18 09/09/20 17:35 Respiratory Effort Non-Labored 09/09/20 08:40 Respiratory Depth Normal 09/09/20 08:40 Respiratory Pattern Normal 09/09/20 08:40 Blood Pressure 146/61 H 09/09/20 17:35 Blood Pressure Position Sitting 09/08/20 18:29 Pulse Oximetry 98 09/09/20 17:35 Oxygen Delivery Method Room Air 09/09/20 17:35 Oxygen Flow Rate 0 09/09/20 17:35 Pain Level 0 09/09/20 16:35 Intake & Output 09/08/20 09/09/20 09/09/20 23:59 11:59 23:59 Intake Total 500 / 500 850 / 1340 490 / 1340 Output Total 250 / 250 275 / 275 Balance 250 / 250 850 / 1065 215 / 1065 Weight 111.13 kg Intake: IV Oral 500 / 500 250 / 730 480 / 730 Blood Product 600 / 600 Rbc Leuko Reduced Unit 300 / 300 [id number] Rbc Leuko Reduced Unit 300 / 300 [id number] Output: Urine 250 / 250 275 / 275 Other: Urine Color Yellow Yellow Urine Appearance Clear Clear Clear Urine Odor Normal Comment voided in the toilet Patient reports normal voiding. Voiding Methods Toilet Urinal # Voids 1 Data Completed and Pending Labs on day of discharge: Labs from last 24 hours 09/09/20 09/08/20 09/08/20 06:48 22:25 21:45 WBC 0.87 L* RBC 2.53 L Hgb 7.3 L Hct 22.3 L MCV 88.1 D MCH 28.9 MCHC 32.7 RDW 19.5 H Plt Count 58 L MPV 10.7 Reticulocyte % (Auto) Immature Gran % 0.0 Neutrophils % 4.0 Lymphocytes % 90.0 Monocytes % 4.0 Eosinophils % 0.0 Basophils % 2.0 Nucleated RBC % 0 Absolute Neutrophils 0.03 L* Absolute Lymphocytes 0.78 L Absolute Monocytes 0.03 L Absolute Eosinophils 0.00 Absolute Basophils 0.02 RBC Morphology See below Polychromasia Poikilocytosis 2+ Anisocytosis 2+ Microcytosis 2+ PT INR APTT Sodium Potassium Chloride Carbon Dioxide Anion Gap BUN Creatinine Estimated GFR/1.73 m2 Glucose Calcium Magnesium Iron TIBC Transferrin % Sat Total Bilirubin AST ALT Alkaline Phosphatase Troponin I NT-Pro-B Natriuret Pep Total Protein Total Protein (PEP) Albumin Albumin % (PEP) Gboeo-5-Wglazyprj (%) Vwsek-4-Axloarhmf (%) Beta Globulins (%) Gamma Globulins (%) M-Sukhjinder % PEP Comment Vitamin B12 Folate TSH Urine Color Yellow Urine Clarity Clear Urine pH 5.5 Ur Specific Dalton 1.025 Urine Protein Trace H Urine Ketones Trace H Urine Blood Negative Urine Nitrite Negative Urine Bilirubin Negative Urine Urobilinogen 2.0 H Ur Leukocyte Esterase Negative Urine RBC Negative Urine WBC Negative Ur Epithelial Cells Negative Urine Crystals Negative Urine Bacteria Negative Urine Casts 0-2 hyaline Urine Mucus Negative Ur Culture Indicated? No Urine Glucose Negative Free [place] LC, Quant Free Lambda LC, Quant Free [place]/Lambda Ratio COVID-19 Source Nasal/nares SARS-CoV-2 (PCR) Negative Influenza Type A (PCR) Negative Influenza Type B (PCR) Negative RSV (PCR) Negative Patient ABO/Rh Antibody Screen Crossmatch 09/08/20 09/08/20 09/08/20 18:50 18:50 18:50 WBC RBC Hgb Hct MCV MCH MCHC RDW Plt Count MPV Reticulocyte % (Auto) Cancelled Immature Gran % Neutrophils % Lymphocytes % Monocytes % Eosinophils % Basophils % Nucleated RBC % Absolute Neutrophils Absolute Lymphocytes Absolute Monocytes Absolute Eosinophils Absolute Basophils RBC Morphology Polychromasia Poikilocytosis Anisocytosis Microcytosis PT INR APTT Sodium Potassium Chloride Carbon Dioxide Anion Gap BUN Creatinine Estimated GFR/1.73 m2 Glucose Calcium Magnesium Iron TIBC Transferrin % Sat Total Bilirubin AST ALT Alkaline Phosphatase Troponin I NT-Pro-B Natriuret Pep Total Protein Total Protein (PEP) Pending Albumin Albumin % (PEP) Pending Zhekz-2-Hnsagqjau (%) Pending Cqvig-1-Jcnxnzbcq (%) Pending Beta Globulins (%) Pending Gamma Globulins (%) Pending M-Sukhjinder % Pending PEP Comment Pending Vitamin B12 699 Folate 11.9 TSH 2.04 Urine Color Urine Clarity Urine pH Ur Specific [place] Urine Protein Urine Ketones Urine Blood Urine Nitrite Urine Bilirubin Urine Urobilinogen Ur Leukocyte Esterase Urine RBC Urine WBC Ur Epithelial Cells Urine Crystals Urine Bacteria Urine Casts Urine Mucus Ur Culture Indicated? Urine Glucose Free [place] LC, Quant Pending Free Lambda LC, Quant Pending Free [place]/Lambda Ratio Pending COVID-19 Source SARS-CoV-2 (PCR) Influenza Type A (PCR) Influenza Type B (PCR) RSV (PCR) Patient ABO/Rh Antibody Screen Crossmatch 09/08/20 09/08/20 09/08/20 18:50 18:50 18:50 WBC RBC Hgb Hct MCV MCH MCHC RDW Plt Count MPV Reticulocyte % (Auto) Immature Gran % Neutrophils % Lymphocytes % Monocytes % Eosinophils % Basophils % Nucleated RBC % Absolute Neutrophils Absolute Lymphocytes Absolute Monocytes Absolute Eosinophils Absolute Basophils RBC Morphology Polychromasia Poikilocytosis Anisocytosis Microcytosis PT INR APTT Sodium Potassium Chloride Carbon Dioxide Anion Gap BUN Creatinine Estimated GFR/1.73 m2 Glucose Calcium Magnesium Iron 116 TIBC 239 L Transferrin % Sat 49 Total Bilirubin AST ALT Alkaline Phosphatase Troponin I < 0.05 NT-Pro-B Natriuret Pep 544 H Total Protein Total Protein (PEP) Albumin Albumin % (PEP) Ksisf-2-Cikskdzpw (%) Peduk-4-Vkrcnlcwo (%) Beta Globulins (%) Gamma Globulins (%) M-Sukhjinder % PEP Comment Vitamin B12 Folate TSH Urine Color Urine Clarity Urine pH Ur Specific Dalton Urine Protein Urine Ketones Urine Blood Urine Nitrite Urine Bilirubin Urine Urobilinogen Ur Leukocyte Esterase Urine RBC Urine WBC Ur Epithelial Cells Urine Crystals Urine Bacteria Urine Casts Urine Mucus Ur Culture Indicated? Urine Glucose Free [place] LC, Quant Free Lambda LC, Quant Free [place]/Lambda Ratio COVID-19 Source SARS-CoV-2 (PCR) Influenza Type A (PCR) Influenza Type B (PCR) RSV (PCR) Patient ABO/Rh A Positive Antibody Screen Negative Crossmatch See Detail 09/08/20 09/08/20 09/08/20 18:50 18:50 18:50 WBC 1.19 L* RBC 2.09 L Hgb 6.1 L* Hct 19.1 L* MCV 91.4 MCH 29.2 MCHC 31.9 L RDW 20.9 H Plt Count 69 L MPV 10.4 Reticulocyte % (Auto) Immature Gran % 0.0 Neutrophils % 6.0 Lymphocytes % 88.0 Monocytes % 6.0 Eosinophils % 0.0 Basophils % 0.0 Nucleated RBC % 0 Absolute Neutrophils 0.07 L* Absolute Lymphocytes 1.05 L Absolute Monocytes 0.07 L Absolute Eosinophils 0.00 Absolute Basophils 0.00 RBC Morphology See below Polychromasia Present Poikilocytosis 2+ Anisocytosis 2+ Microcytosis PT 11.1 H INR 1.1 APTT 22.9 Sodium 139 Potassium 4.2 Chloride 101 Carbon Dioxide 26.2 Anion Gap 11.8 H BUN 27 H Creatinine 1.5 H Estimated GFR/1.73 m2 46.00 Glucose 180 H Calcium 8.7 Magnesium 1.5 L Iron TIBC Transferrin % Sat Total Bilirubin 0.4 AST 8 L ALT 15 L Alkaline Phosphatase 97 Troponin I NT-Pro-B Natriuret Pep Total Protein 7.6 Total Protein (PEP) Albumin 3.5 Albumin % (PEP) Efkxh-7-Xfqptstun (%) Kvpfd-6-Wfpzfpgyp (%) Beta Globulins (%) Gamma Globulins (%) M-Sukhjinder % PEP Comment Vitamin B12 Folate TSH Urine Color Urine Clarity Urine pH Ur Specific [place] Urine Protein Urine Ketones Urine Blood Urine Nitrite Urine Bilirubin Urine Urobilinogen Ur Leukocyte Esterase Urine RBC Urine WBC Ur Epithelial Cells Urine Crystals Urine Bacteria Urine Casts Urine Mucus Ur Culture Indicated? Urine Glucose Free [place] LC, Quant Free Lambda LC, Quant Free [place]/Lambda Ratio COVID-19 Source SARS-CoV-2 (PCR) Influenza Type A (PCR) Influenza Type B (PCR) RSV (PCR) Patient ABO/Rh Antibody Screen Crossmatch 09/08/20 19:15 Blood Blood Culture - Pending 09/08/20 18:50 Blood Blood Culture - Pending Preliminary micro results at discharge 09/08/20 19:15 Blood Culture - Pending Blood 09/08/20 18:50 Blood Culture - Pending Blood [facility] Social History Smoking/Tobacco Use Status: Former Tobacco Use Smoking risk assessment performed?: Yes Alcohol Intake: former Substance use type: does not use Do you feel safe at home: Yes Do you feel safe in your relationship?: Yes
[2020-09-09] MEDS: levoFLOXacin 500 MG TAB PO (18:53)
--- NOTE | 2020-09-09 19:08 | NUR.NOTE ---
Nursing Note: 09/09/20 09:08 Eehfp-ka-gdqdf given to Malena on 1. This nurse gave a full report and answered all questions. Patient is transporting via [facility] to [facility].
--- NOTE | 2020-09-09 19:17 | NUR.NOTE ---
Nursing Note: 09/09/2020 19:18 Any discrepancies, omissions, or errors in documentation today can be related to the code black today when [employer] and internet were down. This limited patient care. This nurse did not have access to patient's account, MAR, orders, documentation, etc. This nurse performed patient care and documentation as accurately and timely as possible.
[2020-09-10 11:01] LABS: Kappa Free Light Chain 10.73 mg/dL (0.33-1.94); Lambda Free Light Chain 3.63 mg/dL (0.57-2.63)
[2020-09-10 15:11] LABS: Albumin 55.3 % (55.8-66.1); Total Protein 6.4 g/dL (6.3-8.2)
== END 2020-09-09 19:16 | disposition short-term general hospital (02) ==
LOC: ER 22:06 → MS 22:51
PROVIDERS: Admitting Provider General Practice; Emergency Provider Physician Assistant; Visit Provider General Practice
DX: D61.818 Other pancytopenia (principal); D70.9 Neutropenia, unspecified; R63.4 Abnormal weight loss; R06.02 Shortness of breath; Z87.891 Personal history of nicotine dependence; E66.9 Obesity, unspecified; E11.9 Type 2 diabetes mellitus without complications; Z79.4 Long term (current) use of insulin; I10 Essential (primary) hypertension; E78.5 Hyperlipidemia, unspecified
CPT/HCPCS: 36415; 36430; 80053; 86850; 86900; 86901; 86920; 87040; 93005; 99221; 99226; 99239; 99285; 71046; 81003; 81015; 82607; 82746; 83540; 83550; 83735; 83880; 83883; 84165; 84443; 84484; 85025; 85045; 85610; 85730; 93010; 99217; 99218; 99284; G0378; J1815; P9016

== ENCOUNTER 2020-10-04 10:05 | Outpatient (REF) | payer OTHER, SELFPAY ==
[2020-10-04 10:33] LABS: Absolute Eosinophil Count 0.01 10^3/uL (0.0-0.7); Absolute Lymphocyte Count 0.57 10^3/uL (1.2-3.4); Absolute Monocyte Count 0.02 10^3/uL (0.1-0.8); Eosinophils % 1.6; HCT 26.8 % (40.0-50.0); HGB 9.1 g/dL (13.5-17.5); Lymphocytes % 93.4; MCH 29.5 pg (27.0-33.0); Monocytes % 3.3; Neutrophils % 1.7; Nucleated RBC 0 %; RBC 3.08 10^6/uL (4.36-5.78); RDW 15.6 % (11.8-14.1); RDW-SD 49.8 fL
[2020-10-04 10:38] LABS: Anion Gap 7.5 mmol/L (3-11); BUN 20 mg/dL (7-18); CO2 28.5 mmol/L (21.0-32.0); CREATININE 0.9 mg/dL (0.70-1.30); Calcium 8.2 mg/dL (8.5-10.1); Chloride 107 mmol/L (98-107); Glucose 135 mg/dL (74-106); Potassium 4.2 mmol/L (3.5-5.1); Sodium 143 mmol/L (136-145)
[2020-10-04 11:16] LABS: Platelet Count 17 10^3/uL (130-400); WBC 0.61 10^3/uL (4.4-10.8)
[2020-10-04 11:23] LABS: Absolute Neutrophil Count 0.01 10^3/uL (1.2-6.7)
[2020-10-04 11:24] LABS: Diff Comment Agrees w/ Instrument; Microcytosis 1+
[2020-10-04 11:25] LABS: Poikilocytes 2+
== END 2020-10-04 10:06 | disposition home or self-care (01) ==
LOC: LBN 10:05
PROVIDERS: Visit Provider Family Medicine
DX: E83.42 Hypomagnesemia (principal); R00.1 Bradycardia, unspecified; D72.819 Decreased white blood cell count, unspecified
CPT/HCPCS: 80048; 85025

== ENCOUNTER 2020-10-29 03:16 | Outpatient (RCR) | payer OTHER, SELFPAY ==
[2020-10-16 08:50] LABS: Absolute Eosinophil Count 0.02 10^3/uL (0.0-0.7); HCT 22.8 % (40.0-50.0); HGB 7.4 g/dL (13.5-17.5); MCH 28.6 pg (27.0-33.0); MCHC 32.5 % (32.0-36.0); MPV 9.9 fL (8.0-11.0); Nucleated RBC 0 %; Platelet Count 116 10^3/uL (130-400); RBC 2.59 10^6/uL (4.36-5.78); RDW 15.5 % (11.8-14.1); RDW-SD 49.1 fL
[2020-10-16 09:01] LABS: ALT 13 U/L (16-63); AST 9 U/L (15-37); Albumin 3.2 g/dL (3.4-5.0); Alkaline Phosphatase 97 U/L (46-116); Anion Gap 8.4 mmol/L (3-11); BUN 14 mg/dL (7-18); Bilirubin, Total 0.5 mg/dL (0.2-1.0); CO2 29.6 mmol/L (21.0-32.0); CREATININE 0.8 mg/dL (0.70-1.30); Calcium 8.7 mg/dL (8.5-10.1); Chloride 106 mmol/L (98-107); Glucose 118 mg/dL (74-106); Potassium 3.9 mmol/L (3.5-5.1); Sodium 144 mmol/L (136-145); Total Protein 6.9 g/dL (6.4-8.2)
[2020-10-16] MEDS: Normal Saline Flush 10 ML SYR IVP (09:08)
[2020-10-16 09:28] VITALS: BP 127/67; PULSE 69; RESP 16; TEMP 36.8; O2SAT 95
[2020-10-16 09:31] LABS: WBC 0.63 10^3/uL (4.4-10.8)
[2020-10-16 09:32] LABS: Absolute Monocyte Count 0.08 10^3/uL (0.1-0.8); Absolute Neutrophil Count 0.13 10^3/uL (1.2-6.7); Atypical Lymphocytes % 3
[2020-10-16 09:33] LABS: Absolute Basophil Count 0.01 10^3/uL (0.0-0.2); Diff Comment Manual Differential
[2020-10-16 09:34] LABS: Other Cells % 1
[2020-10-16 09:36] LABS: Hypochromasia 1+; Polychromasia Present
[2020-10-16 10:42] VITALS: BP 120/67; PULSE 58; RESP 16; TEMP 36.6; O2SAT 95
[2020-10-16 10:57] VITALS: BP 119/66; PULSE 60; RESP 19; TEMP 36.9; O2SAT 93
[2020-10-16 11:27] VITALS: BP 123/57; PULSE 67; RESP 16; TEMP 37; O2SAT 97
[2020-10-16 12:34] VITALS: BP 134/63; PULSE 74; RESP 16; TEMP 37.1; O2SAT 98
[2020-10-20 09:08] LABS: Abs Immature Grans 0.02 10^3/uL (0.0-0.06); HCT 25.3 % (40.0-50.0); MCH 28.6 pg (27.0-33.0); MCHC 31.6 % (32.0-36.0); MCV 90.4 fL (80-95); MPV 9.7 fL (8.0-11.0); Nucleated RBC 0 %; Platelet Count 179 10^3/uL (130-400); RDW 15.3 % (11.8-14.1); RDW-SD 49.7 fL
[2020-10-20 09:19] LABS: ALT 14 U/L (16-63); AST 11 U/L (15-37); Albumin 3.2 g/dL (3.4-5.0); Alkaline Phosphatase 100 U/L (46-116); Anion Gap 5.4 mmol/L (3-11); BUN 16 mg/dL (7-18); Bilirubin, Total 0.4 mg/dL (0.2-1.0); CO2 30.6 mmol/L (21.0-32.0); CREATININE 0.7 mg/dL (0.70-1.30); Calcium 8.3 mg/dL (8.5-10.1); Chloride 109 mmol/L (98-107); Glucose 108 mg/dL (74-106); Sodium 145 mmol/L (136-145); Total Protein 7.1 g/dL (6.4-8.2)
[2020-10-20 09:49] LABS: WBC 0.66 10^3/uL (4.4-10.8)
[2020-10-20 09:50] LABS: Absolute Lymphocyte Count 0.48 10^3/uL (1.2-3.4); Absolute Monocyte Count 0.12 10^3/uL (0.1-0.8); Absolute Neutrophil Count 0.04 10^3/uL (1.2-6.7)
[2020-10-20 09:51] LABS: Diff Comment Manual Differential; Other Cells % 3
[2020-10-20 09:52] LABS: Burr Cells (echinocyte) 2+
[2020-10-27 09:09] LABS: Abs Immature Grans 0.01 10^3/uL (0.0-0.06); Absolute Basophil Count 0.01 10^3/uL (0.0-0.2); HCT 23.7 % (40.0-50.0); HGB 7.6 g/dL (13.5-17.5); MCH 29.1 pg (27.0-33.0); MCHC 32.1 % (32.0-36.0); MCV 90.8 fL (80-95); MPV 10.1 fL (8.0-11.0); Nucleated RBC 0 %; Platelet Count 156 10^3/uL (130-400); RBC 2.61 10^6/uL (4.36-5.78); RDW 15.8 % (11.8-14.1); RDW-SD 50.4 fL
[2020-10-27] MEDS: Normal Saline Flush 10 ML SYR IVP (09:33)
[2020-10-27 09:39] VITALS: BP 126/64; PULSE 66; RESP 16; TEMP 37; O2SAT 98
[2020-10-27 09:55] LABS: WBC 0.61 10^3/uL (4.4-10.8)
[2020-10-27 09:56] LABS: Absolute Eosinophil Count 0.01 10^3/uL (0.0-0.7); Absolute Lymphocyte Count 0.54 10^3/uL (1.2-3.4); Absolute Monocyte Count 0.03 10^3/uL (0.1-0.8); Atypical Lymphocytes % 2; Myelocytes % 1
[2020-10-27 09:57] LABS: Anisocytosis 1+; Diff Comment Manual Differential; Hypochromasia 1+; Other Cells % 3
[2020-10-27 09:58] LABS: Poikilocytes 2+
[2020-10-27 10:21] VITALS: BP 134/56; PULSE 58; RESP 20; TEMP 36.8; O2SAT 98
[2020-10-27 10:36] VITALS: BP 132/59; PULSE 64; RESP 16; TEMP 36.6; O2SAT 99
[2020-10-27 11:06] VITALS: BP 128/73; PULSE 64; RESP 16; TEMP 36.9; O2SAT 99
[2020-10-27 11:43] VITALS: BP 131/65; PULSE 61; RESP 16; TEMP 36.8; O2SAT 100
[2020-10-27 12:20] VITALS: BP 145/69; PULSE 63; RESP 17; TEMP 37.3; O2SAT 99
== END 2020-10-31 23:59 | disposition home or self-care (01) ==
LOC: INF 03:16
PROVIDERS: Visit Provider Internal Medicine Hematology & Oncology
DX: D46.9 Myelodysplastic syndrome, unspecified (principal)
CPT/HCPCS: 36415; 36430; 80053; 86850; 86900; 86901; 86920; 85025; P9016

== ENCOUNTER 2020-12-01 09:00 | Outpatient (RCR) | payer OTHER, SELFPAY ==
[2020-11-01 00:26] VITALS: BP 145/69; PULSE 63; RESP 17; TEMP 37.3
[2020-11-04] MEDS: Normal Saline Flush 10 ML SYR IVP (08:09)
[2020-11-04 08:10] LABS: Abs Immature Grans 0.01 10^3/uL (0.0-0.06); Absolute Eosinophil Count 0.01 10^3/uL (0.0-0.7); HCT 22.9 % (40.0-50.0); HGB 7.4 g/dL (13.5-17.5); MCHC 32.3 % (32.0-36.0); MCV 89.8 fL (80-95); MPV 10.9 fL (8.0-11.0); Nucleated RBC 0 %; RBC 2.55 10^6/uL (4.36-5.78); RDW 15.6 % (11.8-14.1); RDW-SD 49.4 fL
[2020-11-04 08:38] LABS: WBC 0.57 10^3/uL (4.4-10.8)
[2020-11-04 08:39] LABS: Absolute Lymphocyte Count 0.54 10^3/uL (1.2-3.4); Absolute Neutrophil Count 0.01 10^3/uL (1.2-6.7); Platelet Count 35 10^3/uL (130-400)
[2020-11-04 08:40] LABS: Diff Comment Manual Differential; Other Cells % 2; RBC Morphology Normal
[2020-11-04 09:23] VITALS: BP 128/62; PULSE 67; RESP 20; TEMP 36.7; O2SAT 97
[2020-11-04 09:37] VITALS: BP 128/62; PULSE 67; RESP 20; TEMP 36.7; O2SAT 97
[2020-11-04 09:52] VITALS: BP 128/58; PULSE 69; RESP 20; TEMP 36.6; O2SAT 97
[2020-11-04 10:22] VITALS: BP 118/67; PULSE 65; RESP 20; TEMP 36.7; O2SAT 98
[2020-11-04 11:22] VITALS: BP 133/59; PULSE 63; RESP 20; TEMP 36.6; O2SAT 97
[2020-11-04 11:33] VITALS: BP 124/60; PULSE 64; RESP 16; TEMP 36.5; O2SAT 94
[2020-11-10 08:01] LABS: Absolute Eosinophil Count 0.01 10^3/uL (0.0-0.7); Absolute Lymphocyte Count 0.39 10^3/uL (1.2-3.4); Absolute Monocyte Count 0.05 10^3/uL (0.1-0.8); Eosinophils % 2.1; HCT 22.4 % (40.0-50.0); HGB 7.2 g/dL (13.5-17.5); Lymphocytes % 81.3; MCH 28.5 pg (27.0-33.0); MCHC 32.1 % (32.0-36.0); MCV 88.5 fL (80-95); MPV 9.5 fL (8.0-11.0); Monocytes % 10.4; Neutrophils % 6.2; Nucleated RBC 0 %; RBC 2.53 10^6/uL (4.36-5.78); RDW 15.3 % (11.8-14.1); RDW-SD 47.9 fL
[2020-11-10] MEDS: Normal Saline Flush 10 ML SYR IVP (08:07)
[2020-11-10 08:14] LABS: ALT 15 U/L (16-63); AST 11 U/L (15-37); Albumin 3.2 g/dL (3.4-5.0); Alkaline Phosphatase 106 U/L (46-116); Anion Gap 9.4 mmol/L (3-11); BUN 20 mg/dL (7-18); Bilirubin, Total 0.6 mg/dL (0.2-1.0); CO2 29.6 mmol/L (21.0-32.0); Calcium 8.8 mg/dL (8.5-10.1); Chloride 104 mmol/L (98-107); Glucose 133 mg/dL (74-106); Potassium 3.1 mmol/L (3.5-5.1); Sodium 143 mmol/L (136-145); Total Protein 6.7 g/dL (6.4-8.2); WBC 0.48 10^3/uL (4.4-10.8)
[2020-11-10 08:15] LABS: Absolute Neutrophil Count 0.03 10^3/uL (1.2-6.7); Platelet Count 30 10^3/uL (130-400)
[2020-11-10 08:24] LABS: Diff Comment Agrees w/ Instrument; RBC Morphology Normal
[2020-11-10 08:53] VITALS: BP 115/56; PULSE 56; RESP 20; TEMP 36.7; O2SAT 98
[2020-11-10 09:02] VITALS: BP 115/56; PULSE 55; RESP 16; TEMP 36.7; O2SAT 98
[2020-11-10 09:17] VITALS: BP 124/61; PULSE 56; RESP 16; TEMP 36.6; O2SAT 98
[2020-11-10 09:47] VITALS: BP 131/61; PULSE 48; RESP 16; TEMP 36.6; O2SAT 99
[2020-11-10 10:47] VITALS: BP 155/70; PULSE 58; RESP 20; TEMP 36.6; O2SAT 98
[2020-11-10 10:59] VITALS: BP 147/74; PULSE 53; RESP 16; TEMP 36.5; O2SAT 98
[2020-11-18] VITALS (9 sets, daily range): BP systolic 121–141; BP diastolic 51–65; PULSE 50–62; RESP 16–18; TEMP 36.4–36.7; O2SAT 99–100
[2020-11-18 10:23] LABS: MCH 28.8 pg (27.0-33.0); MCHC 32.9 % (32.0-36.0); MCV 87.5 fL (80-95); Nucleated RBC 0 %; RDW 14.8 % (11.8-14.1); RDW-SD 47.5 fL
[2020-11-18 10:37] LABS: ALT 12 U/L (16-63); AST 13 U/L (15-37); Albumin 3.2 g/dL (3.4-5.0); Alkaline Phosphatase 107 U/L (46-116); Anion Gap 7.5 mmol/L (3-11); BUN 21 mg/dL (7-18); Bilirubin, Total 0.8 mg/dL (0.2-1.0); CO2 32.5 mmol/L (21.0-32.0); CREATININE 1.2 mg/dL (0.70-1.30); Calcium 8.7 mg/dL (8.5-10.1); Chloride 104 mmol/L (98-107); Estimated GFR 59.35 (mL/min/1.73m2); Glucose 131 mg/dL (74-106); Sodium 144 mmol/L (136-145); Total Protein 6.7 g/dL (6.4-8.2)
[2020-11-18 10:47] LABS: Potassium 2.7 mmol/L (3.5-5.1)
[2020-11-18 10:54] LABS: Absolute Monocyte Count 0.03 10^3/uL (0.1-0.8); Metamyelocytes % 3
[2020-11-18 10:56] LABS: HGB 6.9 g/dL (13.5-17.5)
[2020-11-18 10:57] LABS: Absolute Neutrophil Count 0.03 10^3/uL (1.2-6.7)
[2020-11-18 10:58] LABS: Diff Comment Manual Differential; Platelet Count 20 10^3/uL (130-400); RBC Morphology Normal
[2020-11-18] MEDS: Potassium Chloride 20 MEQ TABCR 40 MEQ PO (12:58)
[2020-11-18] MEDS: Normal Saline Flush 10 ML SYR IVP (15:20)
[2020-11-19 15:00] LABS: Other Cells % 5
[2020-11-20] MEDS: Normal Saline Flush 10 ML SYR IVP (09:26)
[2020-11-20 09:52] LABS: ALT 10 U/L (16-63); AST 11 U/L (15-37); Albumin 3.4 g/dL (3.4-5.0); Alkaline Phosphatase 108 U/L (46-116); BUN 21 mg/dL (7-18); Calcium 8.9 mg/dL (8.5-10.1); Chloride 104 mmol/L (98-107); Glucose 103 mg/dL (74-106); Potassium 3.2 mmol/L (3.5-5.1); Sodium 143 mmol/L (136-145); Total Protein 6.9 g/dL (6.4-8.2)
[2020-11-20 10:31] LABS: Abs Immature Grans 0.01 10^3/uL (0.0-0.06); HCT 24.4 % (40.0-50.0); HGB 8.3 g/dL (13.5-17.5); MCV 85.3 fL (80-95); Nucleated RBC 0 %; RBC 2.86 10^6/uL (4.36-5.78); RDW 14.6 % (11.8-14.1); RDW-SD 45.3 fL
[2020-11-20 11:06] LABS: WBC 0.44 10^3/uL (4.4-10.8)
[2020-11-20 11:07] LABS: Absolute Neutrophil Count 0.01 10^3/uL (1.2-6.7); Platelet Count 16 10^3/uL (130-400)
[2020-11-20 11:08] LABS: Absolute Lymphocyte Count 0.39 10^3/uL (1.2-3.4); Absolute Monocyte Count 0.03 10^3/uL (0.1-0.8); Atypical Lymphocytes % 1
[2020-11-20 11:09] LABS: Diff Comment Manual Differential; Other Cells % 3; RBC Morphology Normal
[2020-11-20 14:38] VITALS: BP 128/53; PULSE 64; RESP 20; TEMP 36.6; O2SAT 100
[2020-11-20 14:53] VITALS: BP 125/69; PULSE 51; RESP 16; TEMP 37.1; O2SAT 100
[2020-11-20 14:56] VITALS: BP 123/59; PULSE 51; RESP 16; TEMP 37.1; O2SAT 95
[2020-11-24] VITALS (7 sets, daily range): BP systolic 129–155; BP diastolic 48–79; PULSE 45–55; RESP 16–17; TEMP 36.3–36.5; O2SAT 98–100
[2020-11-24 09:37] LABS: HCT 21.6 % (40.0-50.0); HGB 7.2 g/dL (13.5-17.5); MCH 28.6 pg (27.0-33.0); MCHC 33.3 % (32.0-36.0); MCV 85.7 fL (80-95); Nucleated RBC 0 %; RBC 2.52 10^6/uL (4.36-5.78); RDW 14.3 % (11.8-14.1); RDW-SD 44.2 fL
[2020-11-24 09:54] LABS: Absolute Lymphocyte Count 0.34 10^3/uL (1.2-3.4); Absolute Monocyte Count 0.04 10^3/uL (0.1-0.8); Atypical Lymphocytes % 3
[2020-11-24 09:59] LABS: Platelet Count 15 10^3/uL (130-400)
[2020-11-24 10:00] LABS: Diff Comment Manual Differential
[2020-11-24 10:01] LABS: Other Cells % 3; RBC Morphology Normal
[2020-11-24] MEDS: Normal Saline Flush 10 ML SYR IVP (13:19)
[2020-11-27 09:35] LABS: Abs Immature Grans 0.01 10^3/uL (0.0-0.06); Absolute Monocyte Count 0.04 10^3/uL (0.1-0.8); HCT 22.7 % (40.0-50.0); HGB 7.6 g/dL (13.5-17.5); MCH 28.7 pg (27.0-33.0); MCHC 33.5 % (32.0-36.0); MCV 85.7 fL (80-95); Nucleated RBC 0 %; RBC 2.65 10^6/uL (4.36-5.78); RDW-SD 43.2 fL
[2020-11-27 10:11] LABS: Absolute Lymphocyte Count 0.32 10^3/uL (1.2-3.4)
[2020-11-27 10:12] LABS: Atypical Lymphocytes % 7; Other Cells % 2
[2020-11-27 10:13] LABS: Diff Comment Manual Differential; Hypochromasia 2+
[2020-11-27 10:16] LABS: Absolute Neutrophil Count 0.01 10^3/uL (1.2-6.7); Platelet Count 16 10^3/uL (130-400); WBC 0.37 10^3/uL (4.4-10.8)
[2020-11-27 10:20] VITALS: BP 115/55; PULSE 45; RESP 17; TEMP 36.7; O2SAT 99
[2020-11-27 11:05] VITALS: BP 135/56; PULSE 55; RESP 16; TEMP 37; O2SAT 100
[2020-11-27 11:35] VITALS: BP 127/61; PULSE 54; RESP 17; TEMP 36.7; O2SAT 100
[2020-11-27 12:50] VITALS: BP 162/56; PULSE 87; RESP 16; TEMP 37; O2SAT 100
[2020-11-27 13:00] VITALS: BP 121/58; PULSE 46; RESP 16; TEMP 36.7; O2SAT 100
[2020-11-27 13:24] VITALS: BP 149/62; PULSE 54; RESP 16; TEMP 37; O2SAT 100
[2020-12-01 08:26] LABS: Abs Immature Grans 0.01 10^3/uL (0.0-0.06); HCT 24.5 % (40.0-50.0); HGB 8.2 g/dL (13.5-17.5); MCH 29.3 pg (27.0-33.0); MCHC 33.5 % (32.0-36.0); MCV 87.5 fL (80-95); Nucleated RBC 0 %; RDW 14.1 % (11.8-14.1)
[2020-12-01 08:41] LABS: ALT 10 U/L (16-63); AST 19 U/L (15-37); Albumin 3.5 g/dL (3.4-5.0); Alkaline Phosphatase 124 U/L (46-116); Anion Gap 7.8 mmol/L (3-11); BUN 15 mg/dL (7-18); Bilirubin, Total 1.1 mg/dL (0.2-1.0); CO2 30.2 mmol/L (21.0-32.0); CREATININE 0.9 mg/dL (0.70-1.30); Chloride 103 mmol/L (98-107); Glucose 105 mg/dL (74-106); Potassium 4.3 mmol/L (3.5-5.1); Sodium 141 mmol/L (136-145); Total Protein 7.2 g/dL (6.4-8.2)
[2020-12-01 09:12] VITALS: BP 139/53; PULSE 60; RESP 18; TEMP 36.5; O2SAT 99
[2020-12-01 09:34] LABS: WBC 0.48 10^3/uL (4.4-10.8)
[2020-12-01 09:35] LABS: Platelet Count 14 10^3/uL (130-400)
[2020-12-01 09:38] LABS: Absolute Lymphocyte Count 0.41 10^3/uL (1.2-3.4); Absolute Monocyte Count 0.03 10^3/uL (0.1-0.8); Absolute Neutrophil Count 0.01 10^3/uL (1.2-6.7)
[2020-12-01 09:39] LABS: Diff Comment Manual Differential; Other Cells % 7; RBC Morphology Normal
[2020-12-01] MEDS: Normal Saline Flush 10 ML SYR IVP (12:40)
[2020-12-01 12:45] VITALS: BP 148/65; PULSE 50; RESP 16; TEMP 36.5; O2SAT 100
== END 2020-12-01 23:59 | disposition home or self-care (01) ==
LOC: INF 09:00
PROVIDERS: Visit Provider Internal Medicine Hematology & Oncology
DX: D46.9 Myelodysplastic syndrome, unspecified (principal)
CPT/HCPCS: 36415; 36430; 80053; 86850; 86900; 86901; 86920; 86945; 85025; 86644; P9016; P9035

== ENCOUNTER 2020-12-25 17:38 | Inpatient (IN) | payer OTHER, SELFPAY ==
[2020-12-25] VITALS (28 sets, daily range): BP systolic 136–171; BP diastolic 51–82; PULSE 60–88; RESP 16–20; TEMP 36.7–37.1; O2SAT 92–98
--- NOTE | 2020-12-25 17:45 | DI.RAD_ITS ---
Exam(s) XR HIP PELVIS ADULT BL EXAM: XR HIP PELVIS ADULT BL CLINICAL HISTORY: notable sacral ulcer, r/o osteo. TECHNIQUE: 2D digital imaging was performed. COMPARISON: No exams were available for comparison FINDINGS: BONES: No acute fracture is present. No bony destructive lesion is seen. Bilateral acetabular spurr ing. Enthesophytes at the iliac wings. JOINTS: No dislocation present. SI joints are unremarkable. Degenerative disc changes in the lowe r lumbar spine. The exam is somewhat limited by overlying soft tissue. IMPRESSION: Degenerative changes. No gross evidence of bony erosion. DATA REPOSITORY: RADIATION DOSE DELIVERED:
--- NOTE | 2020-12-25 17:45 | DI.RAD_ITS ---
Exam(s) XR TOE RT GREAT EXAM: XR TOE RT GREAT CLINICAL HISTORY: r/o osteo. TECHNIQUE: 2D digital imaging was performed. COMPARISON: No exams were available for comparison FINDINGS: There is a soft tissue wound seen laterally at the great toe. There is a chronic-appearing deformity at the interphalangeal joint. There is severe joint space narrowing and lateral subluxation. There is also deformity at the distal aspect of the proximal phalanx. Lucencies are present. Osteomyelit is cannot be excluded. The visualized portions of the 2nd and 3rd toes are unremarkable. The 1st th rough 3rd MTP joints show minimal degenerative changes. IMPRESSION: Degenerative changes and chronic deformity of the proximal phalanx. Abnormal lucencies are present, which could represent osteomyelitis. Bone scan could be considered for further evaluation. DATA REPOSITORY: RADIATION DOSE DELIVERED:
--- NOTE | 2020-12-25 17:56 | W.ED.GENAD ---
Discharge Plan Disposition Patient Disposition: [facility] INPATIENT Condition: Improving Discharge Details Chief Complaint: Nausea/Vomit/Diar Clinical Impression: Osteomyelitis, Pancytopenia, Neutropenia Admit Date/Time: 12/25/20 21:20 Admit Provider: Rusty Ruiz Attending Provider: Rusty Ruiz Primary Care Provider: Aurelia Westbrook ED Provider: Dwaine Carrillo Discharge Data Discharge Date/Time-TO BE ENTERED AT DEPARTURE: 12/25/20 22:34 Medical Decision Making 75-year-old male with a past medical history of cancer, prostate, and history of notable neutropenia and thrombocytopenia. He is chronically on Levaquin and acyclovir secondary to his chronic neutropenia. [facility] He does have a chronic PICC line. He presents today after being sent via EMS by his home health nurse for evaluation of fatigue, fever, watery diarrhea for 3 days, and worsening sacral wound. Aside for these complaints the patient denies any other complaints. He denies any abdominal pain, vomiting, cough, new pain in the sacrum. Patient does not have much to add otherwise. Patient is unaware of his home medications. I did contact the home health nurse and she was concerned with the notable worsening of the sacral wound, importance of wound care for this, and her concern for potential infection with his chronic neutropenia. Exam demonstrates clear lungs, stage II or stage III sacral ulcer, this was cultured. A stage I-II ulcer on the right great toe. No other abnormalities. Exam otherwise unremarkable. PICC line is unremarkable. Will get blood cultures, culture of the wound, evaluate for infectious source, monitor closely and reassess. 10 PM Laboratory work-up demonstrates notable neutropenia, thrombocytopenia, both of which actually seems somewhat at baseline for the patient. Renal function normal thyroid function stable. Urinalysis negative for infection. Chest x-ray negative for focal infiltrates, there is mild cardiomegaly. The patient does have is elevated at 6800, which appears to be more of an acute component. Sacrum and hip show no evidence of osteomyelitis however the great toe/proximal phalanx does show evidence of lucency concerning for osteomyelitis. With the patient's chronic neutropenia, I do feel he is high risk for infection, especially with the fever documented at home although he is afebrile here. We will start the patient on vancomycin and Cipro. [facility] and discussed the case with the hospitalist ,, and he states that currently they are OR is nonfunctional. I did describe to him that I did not feel that the patient's current status indicated a need for emergent amputation of any of the patient's extremities at this time, however he felt that this may be the case it would not be appropriate to [facility] to the [facility] at this time because of lack of surgical coverage. Discussed the case with the hospitalist Dr. Ruiz, he agrees with the assessment and plan. I have extensively reviewed the treatment plan with the patient. I have addressed all patient concerns at this time. I have also discussed the plan with the admitting physician and they agree with the current assessment and plan and have agreed to assume responsibility for the patient. All parties demonstrate verbal understanding and agreement with our assessment and plan at this time. The documentation in this chart was dictated using [employer] dictation software. Please excuse any dictation errors. FINDINGS: Bones/joints: No acute fracture. Alignment is anatomic. The joint spaces are preserved. No obvious bony destructive changes to suggest osteomyelitis. Soft tissues: Unremarkable. IMPRESSION: No definite plain film findings to suggest osteomyelitis. However, if this is of clinical concern, consider MRI. Thank you for allowing us to participate in the care of your patient. Dictated and Authenticated by: Mack Ziegler MD 12/25/2020 7:12 PM Eastern Time ([place] & [place]) IMPRESSION: 1. Deformity of the distal aspect of the proximal phalanx of the great toe with regions of irregular lucency. Osteomyelitis is not excluded. Consider further evaluation with MRI or bone scan. 2. Severe arthropathy with lateral subluxation of the interphalangeal joint of the great toe. Thank you for allowing us to participate in the care of your patient. Dictated and Authenticated by: Mack Ziegler MD 12/25/2020 7:16 PM Eastern Time ([place] & [place]) FINDINGS: Tubes, catheters and devices: There is a stable left PICC line in place. Lungs: No mass. No consolidation. Pleural spaces: Unremarkable. No pleural effusion. No pneumothorax. Heart/Mediastinum: There is cardiomegaly. Bones/joints: Unremarkable. IMPRESSION: 1. Cardiomegaly. 2. No evidence for focal infiltrate. Thank you for allowing us to participate in the care of your patient. Dictated and Authenticated by: Mack Ziegler MD 12/25/2020 7:21 PM Eastern Time ([place] & [place]) HPI General Date/Time Provider Initiated Documentation: 12/25/20 17:43. HPI Narrative: 75-year-old male with a past medical history of cancer, prostate, and history of notable neutropenia and thrombocytopenia. He is chronically on Levaquin and acyclovir secondary to his chronic neutropenia. [facility]. He does have a chronic PICC line. He presents today after being sent via EMS by his home health nurse for evaluation of fatigue, fever, watery diarrhea for 3 days, and worsening sacral wound. Aside for these complaints the patient denies any other complaints. He denies any abdominal pain, vomiting, cough, new pain in the sacrum. Patient does not have much to add otherwise. Patient is unaware of his home medications. I did contact the home health nurse and she was concerned with the notable worsening of the sacral wound, importance of wound care for this, and her concern for potential infection with his chronic neutropenia. Related Data Home Medications Medication Instructions Recorded Confirmed allopurinol 300 mg PO DAILY 08/06/20 12/25/20 cyanocobalamin (vitamin B-12) 1,000 mcg PO DAILY 08/06/20 12/25/20 acyclovir 400 mg PO BID 12/25/20 12/25/20 atenolol 25 mg PO DAILY 12/25/20 12/25/20 cholecalciferol (vitamin D3) 25 mcg PO DAILY 12/25/20 12/25/20 hydrochlorothiazide 25 mg PO DAILY 12/25/20 12/25/20 levofloxacin 750 mg PO DAILY 12/25/20 12/25/20 losartan 25 mg PO DAILY 12/25/20 12/25/20 magnesium oxide 400 mg PO BID 12/25/20 12/25/20 polyethylene glycol 3350 [Miralax] 17 g PO DAILY 12/25/20 12/25/20 posaconazole 300 mg PO DAILY 12/25/20 12/25/20 potassium chloride 10 meq PO DAILY 12/25/20 12/25/20 rosuvastatin 10 mg PO DAILY 12/25/20 12/25/20 Allergies Allergy/AdvReac Type Severity Reaction Status Date / Time No Known Allergies Allergy Unverified 12/25/20 17:45 General Stated Complaint: Nausea/Vomit/Diar KHANG: 3 Review of Systems All systems reviewed & are unremarkable except as noted in HPI and below PFSH Social History Smoking/Tobacco Use Status: Former Tobacco Use Smoking risk assessment performed?: Yes Alcohol Intake: former Substance use type: does not use Do you feel safe at home: Yes Do you feel safe in your relationship?: Yes Exam Narrative Exam Narrative: 1.Const: Well-nourished, Well-developed, appearing stated age 2.Eyes: PERRL, no conjunctival injection, and symmetrical lids. 3.ENT: Atraumatic external nose and ears. Moist MM. Neck: Symmetric, trachea midline, No thyromegaly. 4.CVS: +S1/S2, No murmurs or gallops. Peripheral pulses 2+ and equal in all extremities. Brisk capillary refill in all extremities. 5.RESP: Unlabored respiratory effort. Clear to auscultation bilaterally. No wheezes rales or rhonchi 6.GI: Soft, Nontender/Nondistended, No hepatosplenomegaly. No guarding or rebound. 7.MSK: Normocephalic/Atraumatic, Extremities w/o deformity or ttp No cyanosis or clubbing, Normal movement of all extremities 8.Skin: Stage 2-3 sacral ulcer on the buttock, small amount of purulence. Stage II ulcer on the right great toe. No discharge. 9.Neuro: taper and floater II-XII grossly intact. Sensation grossly intact, no focal neurologic deficits. 10.Psych: (AAO) x3. Appropriate mood and affect Course Vital Signs Vital signs: Vital Signs Temperature 37.1 C 12/25/20 17:38 Pulse 88 12/25/20 17:38 Respiratory Rate 16 12/25/20 17:38 Blood Pressure 171/66 H 12/25/20 17:38 Pulse Oximetry 98 12/25/20 17:38 Temperature 37.1 C 12/25/20 17:38 Temperature Source Skin 12/25/20 17:38 Pulse 88 12/25/20 17:38 Respiratory Rate 16 12/25/20 17:38 Blood Pressure 171/66 H 12/25/20 17:38 Blood Pressure Position Sitting 12/25/20 17:38 Pulse Oximetry 98 12/25/20 17:38 Oxygen Delivery Method Room Air 12/25/20 17:38 Oxygen Flow Rate 0 12/25/20 17:38 Pain Level 7 12/25/20 17:38 Lab/Test Results Lab/Test Results: 12/25/20 17:46 Buttock - Right Skin Culture - Pending 12/25/20 17:44 Blood Blood Culture - Pending 12/25/20 17:44 Blood Blood Culture - Pending
--- NOTE | 2020-12-25 18:00 | DI.RAD_ITS ---
Exam(s) XR CHEST 2V PA LATERAL EXAM: XR CHEST 2V PA LATERAL CLINICAL HISTORY: fever, r/o pnuemonia TECHNIQUE: 2D digital imaging was performed. COMPARISON: CR,XR XR CHEST 2V PA LATERAL from 09/08/2020 CR,XR XR CHEST 2V PA LATERAL from 09/08/2020 CR XR PORTABLE CHEST AP POST LINE from 12/08/2020 FINDINGS: The exam is limited by patient positioning. The lungs are not well inflated. There is minimal blunt ing at the costophrenic angles. A PICC line is seen. The tip is not well visualized due to techniqu e. No focal infiltrate is seen. The heart is enlarged. IMPRESSION: Tiny bilateral pleural effusions. No visible infiltrate. DATA REPOSITORY: RADIATION DOSE DELIVERED:
[2020-12-25 18:24] LABS: Lactate 1.4 mmol/L (0.6-1.4)
[2020-12-25 18:28] LABS: Abs Immature Grans 0.07 10^3/uL (0.0-0.06); Absolute Lymphocyte Count 0.19 10^3/uL (1.2-3.4); Absolute Monocyte Count 0.13 10^3/uL (0.1-0.8); HCT 22.8 % (40.0-50.0); HGB 7.5 g/dL (13.5-17.5); Lymphocytes % 35.2; MCH 28.6 pg (27.0-33.0); MCHC 32.9 % (32.0-36.0); Monocytes % 24.1; Neutrophils % 27.7; Nucleated RBC 0 %; RBC 2.62 10^6/uL (4.36-5.78); RDW 14.6 % (11.8-14.1)
[2020-12-25 18:53] LABS: ALT 9 U/L (16-63); AST 12 U/L (15-37); Alkaline Phosphatase 108 U/L (46-116); Anion Gap 6.5 mmol/L (3-11); BUN 22 mg/dL (7-18); Bilirubin, Total 1.1 mg/dL (0.2-1.0); CO2 30.5 mmol/L (21.0-32.0); Calcium 9.1 mg/dL (8.5-10.1); Chloride 102 mmol/L (98-107); Glucose 105 mg/dL (74-106); NT-proBNP 6864 pg/mL (<300); Potassium 3.9 mmol/L (3.5-5.1); Sodium 139 mmol/L (136-145); TSH (W/Ref FT4) 1.54 uIU/mL (0.36-3.74); Total Protein 6.6 g/dL (6.4-8.2)
[2020-12-25 19:09] LABS: WBC 0.54 10^3/uL (4.4-10.8)
--- NOTE | 2020-12-25 19:14 | DI.VRAD_ITS ---
PROCEDURE INFORMATION: Exam: XR Right Hip Exam date and time: 12/25/2020 5:50 PM Age: 75 years old Clinical indication: Hip pain; Bilateral; Additional info: Notable sacral ucler / r/ osteo TECHNIQUE: Imaging protocol: XR Right hip. Views: 2 or 3 views hip with pelvis when performed. COMPARISON: CT RENAL COLIC WO 08/06/2020 6:27 PM FINDINGS: Bones/joints: No acute fracture. Alignment is anatomic. The joint spaces are preserved. No obvious bony destructive changes to suggest osteomyelitis. Soft tissues: Unremarkable. IMPRESSION: No definite plain film findings to suggest osteomyelitis. However, if this is of clinical concern, consider MRI. Dictated and Authenticated by: Mack Ziegler MD. Ordering:CANDY Isidro MD
[2020-12-25 19:16] LABS: Absolute Neutrophil Count 0.15 10^3/uL (1.2-6.7)
[2020-12-25 19:17] LABS: Diff Comment Manual Differential
--- NOTE | 2020-12-25 19:17 | DI.VRAD_ITS ---
PROCEDURE INFORMATION: Exam: XR Right Toe(s) Exam date and time: 12/25/2020 5:49 PM Age: 75 years old Clinical indication: Other: R/O osteo; Additional info: Notable sacral ucler / r/ osteo TECHNIQUE: Imaging protocol: XR Right toes. Views: Minimum 2 views. COMPARISON: No relevant prior studies available. FINDINGS: Bones/joints: There is severe joint space narrowing with lateral subluxation of the interphalangeal joint of the great toe. There is deformity of the distal aspect of the proximal phalanx of the great toe with regions of irregular lucency. Osteomyelitis is not excluded. Soft tissues: Unremarkable. IMPRESSION: 1. Deformity of the distal aspect of the proximal phalanx of the great toe with regions of irregular lucency. Osteomyelitis is not excluded. Consider further evaluation with MRI or bone scan. 2. Severe arthropathy with lateral subluxation of the interphalangeal joint of the great toe. Dictated and Authenticated by: Mack Ziegler MD. Ordering:CANDY Isidro MD
[2020-12-25 19:18] LABS: RBC Morphology Normal
--- NOTE | 2020-12-25 19:22 | DI.VRAD_ITS ---
PROCEDURE INFORMATION: Exam: XR Chest Exam date and time: 12/25/2020 6:09 PM Age: 75 years old Clinical indication: Patient HX: Fever, R/O punemonia TECHNIQUE: Imaging protocol: XR of the chest. Views: 2 views. COMPARISON: CR XR PORTABLE CHEST AP POST LINE 12/08/2020 9:57 AM FINDINGS: Tubes, catheters and devices: There is a stable left PICC line in place. Lungs: No mass. No consolidation. Pleural spaces: Unremarkable. No pleural effusion. No pneumothorax. Heart/Mediastinum: There is cardiomegaly. Bones/joints: Unremarkable. IMPRESSION: 1. Cardiomegaly. 2. No evidence for focal infiltrate. Dictated and Authenticated by: Mack Ziegler MD. Ordering:CANDY Isidro MD
[2020-12-25 19:44] LABS: Bilirubin Small (Negative); Blood Negative (Negative); Clarity Clear (Clear); Glucose Negative (Negative); Ketones 15 mg/dL (Negative); Leukocyte Esterase Negative (Negative); Nitrite Negative (Negative); pH 7.5 (5-8)
[2020-12-25 19:56] LABS: Bacteria Negative HPF (Negative); C & S Indicated? No; Casts Negative LPF (Negative); Crystals Negative HPF (Negative); Epithelial Cells Negative HPF (Negative); Mucus Negative (Negative); Other Cells Negative (Negative); RBC Negative HPF (0-2); WBC 0-2 HPF (0-5)
[2020-12-25] MEDS: CIPROFLOXACIN 400 MG/200 ML BAG 200 MG IVPB (20:00)
[2020-12-25 21:49] LABS: Source Nasal/Nares
[2020-12-25 22:44] LABS: COVID-19 PCR Negative (Negative)
--- NOTE | 2020-12-25 23:28 | W.PM.HP.N ---
Date of service: 12/25/20 Time of Service: 23:28 Assessment and Plan Assessment and plan (1) Osteomyelitis: Status: Acute Assessment and plan: R great toe ulcer with evidence of osteomyelitis on xray. Zosyn and Vancomycin initiated. Will consult Podiatry and wound care. (2) Pancytopenia: Status: Acute Assessment and plan: Chronic. Transfusion dependent for RBCs and platelets. Low ANC on prophylactic Levaquin and Diflucan. Received a unit of RBCs and Platelets earlier in the day at the transfusion center prior to presenting to the ED. Platelets in the ED were 9; 6 earlier in the day prior to transfusion. Hgb 7.5 in the ED; 7.5 earlier in the day prior to transfusion. Has prostate cancer. Unclear about current tx; pt is a poor historian. No acute bleeding noted. (3) Prostate cancer: Status: Chronic Assessment and plan: Will need to obtain information from [facility] regarding details and tx. (4) Sacral decubitus ulcer: Status: Acute Assessment and plan: Pt has been more and more fatigued and thus less active. He does have home health nursing who states his wound is worsening. Wound care consulted. A culture of the wound was sent. Zosyn and Vancomycin initiated in the ED. (5) Toe ulcer: Status: Acute Assessment and plan: See osteomyelitis. History of Present Illness History of Present Illness Chief Complaint: Fatigue, sacral wound, toe wound. Narrative: This is a 75 yo male with a h/o prostate CA and pancytopenia. He presented via EMS after his home health nurse requested evaluation for fatigue, fever, worsening sacral wound and watery stools for appx 3 days. No N/V/abd pain. No urinary frequency, dysuria. No cough/sputum/SOA. He was admitted at [facility] in September of this year with pancytopenia and received 3 units of RBCs. He subsequently underwent a bone marrow bx. He cannot state what the findings were. I do not find in his records any dx of MDS or MM. Again, he does have prostate CA. He is RBC and Platelet transfusion dependent and receives those every 3-5 days at [facility] infusion center. In the ED his ANC was 150 with a WBC count of 0.54. Hgb 7.5. Platelets 9. He did receive a unit of RBCs and a pack of platelets in the infusion center earlier on the day of this admission. Electrolytes normal except for a Mg of 1.5. Creatinine 1. BUN 22. No stools to collect for eval since presentation. UA unremarkable. Blood cultuers obtained. Sacral wound culture obtained. IV Cipro and Vancomycin initiated. His NTProBNP was elevate at 6864. CXR w/o infiltrates. + mild cardiomegaly. Xray of hip w/o evidence of osteomyelitis but xray of great toe at the proximal phalanx did show evidence that was concerning for osteomyelitis. Review of Systems All systems reviewed & are unremarkable except as noted in HPI and below PFSH Social History Smoking/Tobacco Use Status: Former Tobacco Use Smoking risk assessment performed?: Yes Alcohol Intake: former Substance use type: does not use Do you feel safe at home: Yes Do you feel safe in your relationship?: Yes Meds Allergies and Home Medications Allergies Allergy/AdvReac Type Severity Reaction Status Date / Time No Known Allergies Allergy Unverified 12/25/20 17:45 Home Medications Medication Instructions Recorded Confirmed Type allopurinol 300 mg PO DAILY 08/06/20 12/25/20 History cyanocobalamin (vitamin B-12) 1,000 mcg PO DAILY 08/06/20 12/25/20 History acyclovir 400 mg PO BID 12/25/20 12/25/20 History atenolol 25 mg PO DAILY 12/25/20 12/25/20 History cholecalciferol (vitamin D3) 25 mcg PO DAILY 12/25/20 12/25/20 History hydrochlorothiazide 25 mg PO DAILY 12/25/20 12/25/20 History levofloxacin 750 mg PO DAILY 12/25/20 12/25/20 History losartan 25 mg PO DAILY 12/25/20 12/25/20 History magnesium oxide 400 mg PO BID 12/25/20 12/25/20 History polyethylene glycol 3350 [Miralax] 17 g PO DAILY 12/25/20 12/25/20 History posaconazole 300 mg PO DAILY 12/25/20 12/25/20 History potassium chloride 10 meq PO DAILY 12/25/20 12/25/20 History rosuvastatin 10 mg PO DAILY 12/25/20 12/25/20 History Exam Const General: cooperative and no acute distress Nutritional Appearance: overweight Orientation: alert and oriented x3 HENMT Head: normocephalic and atraumatic Eyes Sclera: sclerae normal Pupils: PERRL Resp Effort & Inspection: normal respiratory effort Auscultation: clear to auscultation bilaterally Cardio Rate: regular rate Rhythm: regular rhythm Heart Sounds: S1 normal and S2 normal GI Palpation: soft and nontender Auscultation: normal bowel sounds Skin Wounds: wounds noted (Sacral ulcer; stage 2-3. Stage 2 R great toe ulcer. ) Neuro General: no focal motor deficits Cognition: normal cognition Speech: speech normal Extrem General: no pedal edema and no calf tenderness Results Labs Result diagrams: 12/25/20 18:15 12/25/20 18:05 Labs: Laboratory Results - last 24 hr 12/25/20 12/25/20 12/25/20 18:05 18:05 18:15 WBC 0.54 L* RBC 2.62 L Hgb 7.5 L Hct 22.8 L MCV 87.0 MCH 28.6 MCHC 32.9 RDW 14.6 H Plt Count 9 L* MPV Immature Gran % Neutrophils % 27.7 Lymphocytes % 35.2 Monocytes % 24.1 Eosinophils % 0.0 Basophils % 0.0 Metamyelocytes % Other Cells % Nucleated RBC % 0 Absolute Neutrophils 0.15 L* Absolute Lymphocytes 0.19 L Absolute Monocytes 0.13 Absolute Eosinophils 0.00 Absolute Basophils 0.00 RBC Morphology Normal VBG Lactate 1.4 Sodium 139 Potassium 3.9 Chloride 102 Carbon Dioxide 30.5 Anion Gap 6.5 BUN 22 H Creatinine 1.0 Estimated GFR/1.73 m2 >= 60.00 Glucose 105 Calcium 9.1 Total Bilirubin 1.1 H AST 12 L ALT 9 L Alkaline Phosphatase 108 NT-Pro-B Natriuret Pep 6864 H Total Protein 6.6 Albumin 3.0 L TSH 1.54 Urine Color Urine Clarity Urine pH Ur Specific [place] Urine Protein Urine Ketones Urine Blood Urine Nitrite Urine Bilirubin Urine Urobilinogen Ur Leukocyte Esterase Urine RBC Urine WBC Ur Epithelial Cells Urine Crystals Urine Bacteria Urine Casts Urine Mucus Urine Other Ur Culture Indicated? Urine Glucose COVID-19 Source SARS-CoV-2 (PCR) 12/25/20 12/25/20 19:25 21:35 WBC RBC Hgb Hct MCV MCH MCHC RDW Plt Count MPV Immature Gran % Neutrophils % Lymphocytes % Monocytes % Eosinophils % Basophils % Metamyelocytes % Other Cells % Nucleated RBC % Absolute Neutrophils Absolute Lymphocytes Absolute Monocytes Absolute Eosinophils Absolute Basophils RBC Morphology VBG Lactate Sodium Potassium Chloride Carbon Dioxide Anion Gap BUN Creatinine Estimated GFR/1.73 m2 Glucose Calcium Total Bilirubin AST ALT Alkaline Phosphatase NT-Pro-B Natriuret Pep Total Protein Albumin TSH Urine Color Yellow Urine Clarity Clear Urine pH 7.5 Ur Specific [place] 1.020 Urine Protein Trace H Urine Ketones 15 H Urine Blood Negative Urine Nitrite Negative Urine Bilirubin Small H Urine Urobilinogen 2.0 H Ur Leukocyte Esterase Negative Urine RBC Negative Urine WBC 0-2 Ur Epithelial Cells Negative Urine Crystals Negative Urine Bacteria Negative Urine Casts Negative Urine Mucus Negative Urine Other Negative Ur Culture Indicated? No Urine Glucose Negative COVID-19 Source Nasal/Nares SARS-CoV-2 (PCR) Negative Last Vital Signs Temp 36.8 C 12/25/20 23:03 Pulse 61 12/25/20 23:03 Resp 18 12/25/20 23:03 BP 156/82 H 12/25/20 23:03 Pulse Ox 94 12/25/20 23:03
[2020-12-26] VITALS (16 sets, daily range): BP systolic 110–149; BP diastolic 53–80; PULSE 57–122; RESP 16–20; TEMP 36.1–37.6; O2SAT 96–100
[2020-12-26] MEDS: Magnesium Oxide 400 MG TAB PO ×3 (00:01→19:35)
[2020-12-26 07:07] LABS: Abs Immature Grans 0.05 10^3/uL (0.0-0.06); Absolute Lymphocyte Count 0.22 10^3/uL (1.2-3.4); HCT 21.7 % (40.0-50.0); Immature Grans % 9.6; Lymphocytes % 42.3; MCH 28.2 pg (27.0-33.0); MCHC 32.3 % (32.0-36.0); MCV 87.5 fL (80-95); Monocytes % 19.2; Neutrophils % 28.9; Nucleated RBC 0 %; RBC 2.48 10^6/uL (4.36-5.78); RDW 14.7 % (11.8-14.1); RDW-SD 47.1 fL
[2020-12-26 07:16] LABS: Anion Gap 6.6 mmol/L (3-11); BUN 16 mg/dL (7-18); CO2 30.4 mmol/L (21.0-32.0); CREATININE 0.7 mg/dL (0.70-1.30); Calcium 8.7 mg/dL (8.5-10.1); Chloride 103 mmol/L (98-107); Glucose 85 mg/dL (74-106); Potassium 3.6 mmol/L (3.5-5.1); Sodium 140 mmol/L (136-145)
[2020-12-26 07:39] LABS: Troponin I < 0.05 ng/mL (<0.06)
[2020-12-26 07:45] LABS: Basophilic Stippling Present; Diff Comment Diff Reviewed
[2020-12-26 07:49] LABS: MPV 9.6 fL (8.0-11.0)
[2020-12-26 07:52] LABS: Absolute Neutrophil Count 0.15 10^3/uL (1.2-6.7)
[2020-12-26 07:53] LABS: WBC 0.52 10^3/uL (4.4-10.8)
[2020-12-26 07:55] LABS: Platelet Count 6 10^3/uL (130-400)
--- NOTE | 2020-12-26 08:25 | INITIAL_ITS ---
- If Service Date Differs Date of service: 12/26/20 Time of Service: 08:26 Care Management Initial Assess REASON FOR HOSPITALIZATION:: Osteomyelitis PREVIOUS FUNCTIONAL STATUS/SOCIAL/FAMILY SUPPORTS:: Mariana [facility], alone. His sister lives in [place], but he has local cousins in [place]. He reports having an eigth grade education, but joining the [email or web address] at age 21. 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 He is independent with his ADL's, but does admit to his health declining in the recent past. He is [facility]. ADVANCE DIRECTIVES:: On file, Meredith Barrientos listed as agent. Has patient been provided with info about the portal/API?: Yes Did the patient sign up for the portal?: No CODE STATUS:: Full Code INSURANCE COVERAGE / FINANCIAL ISSUES:: [facility]/ [employer] [facility] [place]/ [employer] CURRENT HOME/COMMUNITY SERVICES/EQUIPMENT:: No current services or equipment. PRIMARY CARE PHYSICIAN:: Aurelia Westbrook POTENTIAL DISCHARGE NEEDS:: Evaluation for further needs, follow up appointments PATIENT/FAMILY EDUCATION NEEDS:: Review discharge instructions regarding activity levels and medications, discussion of self care needs and goals of care. ANTICIPATED BARRIERS TO DISCHARGE:: None identified. TRANSPORTATION:: Via private vehicle by friend vs RCT PLAN:: Mariana continues to be closely monitored and treated, he remains on IV ABX for osteomyelitis. CM will continue to follow.
[2020-12-26] MEDS: VANCOMYCIN/WATER (PEG) 1.25 GM/250 ML BAG IV ×2 (08:37→18:01)
[2020-12-26] MEDS: CIPROFLOXACIN 400 MG/200 ML BAG 200 MG IVPB ×3 (08:37→22:09)
[2020-12-26] MEDS: Allopurinol 300 MG TAB PO (08:38)
[2020-12-26] MEDS: Acyclovir 400 MG TAB PO ×2 (08:38→19:35)
[2020-12-26] MEDS: Atenolol 25 MG TAB PO (08:39)
[2020-12-26] MEDS: Normal Saline Flush 10 ML SYR IVP (08:39)
[2020-12-26] MEDS: Losartan 25 MG TAB PO (08:39)
[2020-12-26] MEDS: Potassium Chloride 10 MEQ CAPCR PO (08:39)
[2020-12-26] MEDS: hydroCHLOROthiazide 25 MG TAB PO (08:39)
[2020-12-26] MEDS: Polyethylene Glycol 3350 17 GM PACKET PO (08:40)
--- NOTE | 2020-12-26 10:32 | W.NUTCONSULT ---
Date of service: 12/26/20 Time of Service: 10:32 Nutritional Consult ASSESSMENT: 75 year old male admitted with osteomylitis, sacral pressure wound, toe ulcer with neuropenia,, pancytopenia, prostate CA. Pt asleep when visited. Medical chart indicates 40 lbs weight loss in last 90 days (20%weight loss) considered significant and indicative of moderate/severe malnutrition. Hx of poor intake with cancer treatment as evidenced by significant weight loss and skin breakdown. At high risk for severe malnutrition as with poor nutritional status, increased nutrient needs for wound healing and lack of appetite. Diet advanced to diabetic diet today, will supplement with glucerna BID. May benefit from appetite stimulant such as marinol. Recommend MVI, Vit C 500 mg BID, 220 mg zinc sulfate x 14 days, liquid protein - 1 oz TID. Estimated Needs:2518-2232 kcal, 110-120 g protein, 2500 ml fluid NUTRITIONAL DIAGNOSIS: Moderate to severe malnutrition in view of significant weight loss (-20%) in last 90 days Increased nutrient requirements for wound healing as with multiple sites of skin breakdown Poor appetite INTERVENTION: Continue Diabetic Diet , supplement with glucerna BID MVI 500 mg Vit C BID 220 mg zinc sulfate x 14 days 1 oz liquid protein TID check prealbumin consider marinol as appetite stimulant MONITORING AND EVALUATION: labs, po intake, weight Time Spent in Nutritional Counseling and Treatment: 0
[2020-12-26 10:38] LABS: Magnesium 1.8 mg/dL (1.8-2.4)
--- NOTE | 2020-12-26 12:03 | IN_ITS ---
Date of service: 12/26/20 Time of Service: 11:30 PT Notes Visit Reasons: Osteomyelitis Inpatient Physical Therapy Evaluation Date: 12/26/20 Referring Doctor: Dr. Gomes PT Orders: PT CONSULT: limited ability to ambulate Precautions: protective precautions Patient Profile/Admitting Diagnosis: Patient admitted from ER with diagnosis of osteomyelitis, neutropenia and sacral ulcer. At time of PT consult, he is awaiting platelets. Cleared for consult by nursing prior to consult. PMHX: prostate cancer pancytopenia Social History/Home Situation: [facility], where he has a one level apartment with elevator access. He has Home Health nursing. Typically ambulates with either straight cane or rollator walker. Equipment Owned/DME: cane, FWW, 4WW. Handicap accessible apartment Subjective: Mariana states that he is feeling tired, but is agreeable to PT consult. He admits to a single fall which occurred earlier this week. States that he was feeling tired, and his legs gave out under him while he was waiting for the elevator. Objective: General Observation: Resting in chair with IV in LUE. Pitting edema noted in bilat LEs. Prominent olecronon bursitis on the right (non-painful, per patient) Mental Status: A&Ox3. Pleasant and cooperative. Pain: denies Vital Signs: Resting BP 114/63. Post-ambulation 118/57, with patient reporting feeling woozy during walking. ROM: Right Upper Extremity: Grossly WFL Left Upper Extremity: Grossly WFL Right Lower Extremity: Grossly WFL Left Lower Extremity: Grossly WFL Strength: Right Upper Extremity: Shoulder flexion 4-/5. Biceps 4/5. Triceps 4-/5. Left Upper Extremity: Shoulder flexion 4-/5. Biceps 4/5. Triceps 4-/5. Right Lower Extremity: Hip flexion 4 -/5. Quads 4/5. Ankle dorsiflexion 3/5 or greater. Left Lower Extremity: Hip flexion 4/5. Quads 4/5. Ankle dorsiflexion 3/5 or greater Bed Mobility/Transfers: Sit?stand: CGA Stand?sit: CGA Gait: Patient ambulates 6 feet with FW W, CGA. He reports feeling woozy during ambulation. He was assisted back to sitting and reported resolution of symptoms. Nursing was alerted to symptoms with ambulation. Balance: Static Sitting: Normal Dynamic Sitting: Good Static Standing: Fair Dynamic Standing: Fair Special Tests: Mobility Limitations Standardized Measure [facility] AM-PAC 6 clicks Basic Mobility Inpatient Short Form: Raw Score: 20 CMS Score: 11% deficit Informed Consent/Education: Patient instructed in purpose of PT consult and plan of care. Assessment: Patient is a 75 year old male referred to physical therapy services with the diagnosis of neutropenia and osteomyelitis. Patient presents with clinical signs and symptoms consistent with mobility deficits related to acute medical issues, as demonstrated by the following impairment level findings: 1. Decreased activity tolerance 2. Decreased independence with ambulation 3. Gait impairments 4. History of falls 5. Decreased lower extremity strength Impairments are contributing to the following functional limitations: 1. Decreased tolerance to household distance ambulation 2. Increased fall risk Patient is assessed as Moderate 36621 complexity based on the following: History: Patient is a 75-year-old male admitted for management of acute medical issues, and presenting with associated mobility issues. On presentation today, he is quite fatigued. He is awaiting platelets at time of evaluation, and further ambulation was deferred. Complicating factors include history of prostate cancer and the fact the patient lives alone. Examination: Functional limitations as noted above Presentation: Evolving Decision Making: Moderate complexity Goals: Goals X1 week 1. Supine-Sit: Independent 2. Sit-Supine: Independent 3. Sit-Stand: Independent 4. Stand-Sit: Independent 5. Bed-Chair: Supervision with FW W 6. Chair-Bed: Supervision with FW W 7. Gait: Patient able to ambulate 100 feet with FW W and supervision Plan of Care/Treatment Plan: 1-2x/day, 7 days/week x 1 week. Plan of care has been reviewed with the [employer] providing the service under Physical Therapy direction. Initiate Physical Therapy intervention for strengthening, bed mobility, transfers, gait, stairs, balance training, use of assistive device. DISCHARGE RECOMMENDATIONS: We will continue monitoring mobility and make further discharge recommendations based on patient's safety and activity tolerance as he stabilizes medically. May require SNF stay for rehabilitation prior to returning home. TREATMENT CODE/TIME: 1130?12:00 ([id number]) Zuly Jeronimo, PT, DPT [facility]
[2020-12-26] MEDS: diphenhydrAMINE 25 MG CAP PO (12:19)
[2020-12-26] MEDS: Acetaminophen 325 MG TAB 650 MG PO (12:20)
--- NOTE | 2020-12-26 12:36 | POCOE_ITS ---
Date of service: 12/26/20 Time of Service: 12:36 History of Present Illness History of Present Illness Chief Complaint: Chronic ulcer right great toe Narrative: Mariana is a 75-year-old white male seen in his room for evaluation of an ulceration affecting his right great toe. He states that this has been present for several years. He does indicate that the toe periodically hurts and become swollen. He currently denies any fever or chills. He states [facility] Social History Smoking/Tobacco Use Status: Former Tobacco Use Smoking risk assessment performed?: Yes Alcohol Intake: former Substance use type: does not use Do you feel safe at home: Yes Do you feel safe in your relationship?: Yes Exam Narrative Exam Narrative: 75-year-old male with comorbidities including sacral decubital ulcer, prostate cancer, history of osteomyelitis, neutropenia and pancytopenia, hyperuricemia and gout, hypertension, hypercholesterolemia. He indicates he has had a wound on his great toe for several years exact length of time is unclear. He denies any surgical interventions on the digit or active treatments. Upon his admission to this hospital radiographs of the right great toe were ordered. Radiographs show degenerative changes of the interphalangeal joint with lucencies. Osteomyelitis cannot be ruled out. Peripheral pulses are palpable at the ankles graded plus 1 out of 4, capillary refill is under 3 seconds to all toes, he does have +1 peripheral edema. His calves are soft to palpation no findings of DVT. Skin is generally intact on his lower extremities but dry. A chronic wound is noted over the medial wall of the great toe at the IPJ level. It is in the shape of a teardrop with the widest measurements being 1 cm in width 2 cm in length 1 mm in depth. At the distal dorsal aspect of the wound there is an area of eschar which appears soft and mobile. There are some mild hypertrophy around the wound margins. Gentle probing of the wound did not go to bone at this time. Fungal changes of the toenails are appreciated. The right great toe is significantly enlarged compared to the left but this appe ars to be a chronic change. Degenerative arthrosis of the interphalangeal joint is noted with lateral rotation of the distal phalanx. The radiographs do show end-stage degenerative arthritic changes with lateral subluxation of the distal phalanx at the IPJ level. These changes are nonspecific for infection and can be noted in a multitude of degenerative posttraumatic conditions. Impressions: Chronic wound right great toe with deformity as stated above Chronic osteois a possibility Plan: Mr. Chamorro gets most of his medical care at the [facility] and I believe would prefer to continue receiving his care there. The great toe is not acutely infected or problematic at this time and I would take a conservative approach based on his current blood profile with platelets at 6. I gently debrided the high hypertrophic margin atraumatically and will apply DuoDERM gel and a Mepilex dressing with a surgical shoe to further offload the wound region. If he remains in house I will be happy to continue to work the right great toe up. Based on the gross deformity and chronicity of the wound, limited amputation of the great toe may be his best option. Thank you for this consultation. Results Last Vital Signs Temp 37.6 C H 12/26/20 11:45 Pulse 93 H 12/26/20 11:45 Resp 20 12/26/20 11:45 BP 114/63 12/26/20 11:45 Pulse Ox 96 12/26/20 11:45 Labs Result diagrams: 12/26/20 06:20 12/26/20 06:20 Labs: Laboratory Results - last 24 hr 12/25/20 12/25/20 12/25/20 18:05 18:05 18:15 WBC 0.54 L* RBC 2.62 L Hgb 7.5 L Hct 22.8 L MCV 87.0 MCH 28.6 MCHC 32.9 RDW 14.6 H Plt Count 9 L* MPV Immature Gran % Neutrophils % 27.7 Lymphocytes % 35.2 Monocytes % 24.1 Eosinophils % 0.0 Basophils % 0.0 Metamyelocytes % Other Cells % Nucleated RBC % 0 Absolute Neutrophils 0.15 L* Absolute Lymphocytes 0.19 L Absolute Monocytes 0.13 Absolute Eosinophils 0.00 Absolute Basophils 0.00 RBC Morphology Normal Basophilic Stippling VBG Lactate 1.4 Sodium 139 Potassium 3.9 Chloride 102 Carbon Dioxide 30.5 Anion Gap 6.5 BUN 22 H Creatinine 1.0 Estimated GFR/1.73 m2 >= 60.00 Glucose 105 Calcium 9.1 Magnesium Total Bilirubin 1.1 H AST 12 L ALT 9 L Alkaline Phosphatase 108 Troponin I NT-Pro-B Natriuret Pep 6864 H Total Protein 6.6 Albumin 3.0 L TSH 1.54 Urine Color Urine Clarity Urine pH Ur Specific [place] Urine Protein Urine Ketones Urine Blood Urine Nitrite Urine Bilirubin Urine Urobilinogen Ur Leukocyte Esterase Urine RBC Urine WBC Ur Epithelial Cells Urine Crystals Urine Bacteria Urine Casts Urine Mucus Urine Other Ur Culture Indicated? Urine Glucose COVID-19 Source SARS-CoV-2 (PCR) Patient ABO/Rh 12/25/20 12/25/20 12/26/20 19:25 21:35 06:20 WBC RBC Hgb Hct MCV MCH MCHC RDW Plt Count MPV Immature Gran % Neutrophils % Lymphocytes % Monocytes % Eosinophils % Basophils % Metamyelocytes % Other Cells % Nucleated RBC % Absolute Neutrophils Absolute Lymphocytes Absolute Monocytes Absolute Eosinophils Absolute Basophils RBC Morphology Basophilic Stippling VBG Lactate Sodium 140 Potassium 3.6 Chloride 103 Carbon Dioxide 30.4 Anion Gap 6.6 BUN 16 D Creatinine 0.7 Estimated GFR/1.73 m2 >= 60.00 Glucose 85 Calcium 8.7 Magnesium Total Bilirubin AST ALT Alkaline Phosphatase Troponin I NT-Pro-B Natriuret Pep Total Protein Albumin TSH Urine Color Yellow Urine Clarity Clear Urine pH 7.5 Ur Specific [place] 1.020 Urine Protein Trace H Urine Ketones 15 H Urine Blood Negative Urine Nitrite Negative Urine Bilirubin Small H Urine Urobilinogen 2.0 H Ur Leukocyte Esterase Negative Urine RBC Negative Urine WBC 0-2 Ur Epithelial Cells Negative Urine Crystals Negative Urine Bacteria Negative Urine Casts Negative Urine Mucus Negative Urine Other Negative Ur Culture Indicated? No Urine Glucose Negative COVID-19 Source Nasal/Nares SARS-CoV-2 (PCR) Negative Patient ABO/Rh 12/26/20 12/26/20 12/26/20 06:20 06:20 06:20 WBC 0.52 L* RBC 2.48 L Hgb 7.0 L Hct 21.7 L MCV 87.5 MCH 28.2 MCHC 32.3 RDW 14.7 H Plt Count 6 L* MPV 9.6 Immature Gran % 9.6 Neutrophils % 28.9 Lymphocytes % 42.3 Monocytes % 19.2 Eosinophils % 0.0 Basophils % 0.0 Metamyelocytes % Other Cells % Nucleated RBC % 0 Absolute Neutrophils 0.15 L* Absolute Lymphocytes 0.22 L Absolute Monocytes 0.10 Absolute Eosinophils 0.00 Absolute Basophils 0.00 RBC Morphology See Below Basophilic Stippling Present VBG Lactate Sodium Potassium Chloride Carbon Dioxide Anion Gap BUN Creatinine Estimated GFR/1.73 m2 Glucose Calcium Magnesium 1.8 Total Bilirubin AST ALT Alkaline Phosphatase Troponin I < 0.05 NT-Pro-B Natriuret Pep Total Protein Albumin TSH Urine Color Urine Clarity Urine pH Ur Specific [place] Urine Protein Urine Ketones Urine Blood Urine Nitrite Urine Bilirubin Urine Urobilinogen Ur Leukocyte Esterase Urine RBC Urine WBC Ur Epithelial Cells Urine Crystals Urine Bacteria Urine Casts Urine Mucus Urine Other Ur Culture Indicated? Urine Glucose COVID-19 Source SARS-CoV-2 (PCR) Patient ABO/Rh 12/26/20 06:30 WBC RBC Hgb Hct MCV MCH MCHC RDW Plt Count MPV Immature Gran % Neutrophils % Lymphocytes % Monocytes % Eosinophils % Basophils % Metamyelocytes % Other Cells % Nucleated RBC % Absolute Neutrophils Absolute Lymphocytes Absolute Monocytes Absolute Eosinophils Absolute Basophils RBC Morphology Basophilic Stippling VBG Lactate Sodium Potassium Chloride Carbon Dioxide Anion Gap BUN Creatinine Estimated GFR/1.73 m2 Glucose Calcium Magnesium Total Bilirubin AST ALT Alkaline Phosphatase Troponin I NT-Pro-B Natriuret Pep Total Protein Albumin TSH Urine Color Urine Clarity Urine pH Ur Specific [place] Urine Protein Urine Ketones Urine Blood Urine Nitrite Urine Bilirubin Urine Urobilinogen Ur Leukocyte Esterase Urine RBC Urine WBC Ur Epithelial Cells Urine Crystals Urine Bacteria Urine Casts Urine Mucus Urine Other Ur Culture Indicated? Urine Glucose COVID-19 Source SARS-CoV-2 (PCR) Patient ABO/Rh A Positive
--- NOTE | 2020-12-26 13:21 | WOUNDCONS_ITS ---
- If Service Date Differs Date of service: 12/26/20 Time of Service: 13:21 Wound Initial Evaluation Narrative: Pt seen @ bedside, agreeable to consult and photography. consent signed. Pt chart reviewed for pertinent data r/t wound care. H&P, labs, other providers notes, and MAR reviewed. Hx significant for diabetes, CA. Mr. murphy is a [facility]. Pt lives alone, he is a poor historian and unsure how long he has had this wound. he thinks maybe a few weeks. Pt helped to the NITESH ibrahim consult and observed having a bowel movement, standing and not wiping himself clean afterwards. Brief was found to have stool (smear) in it at start of consult. reports he doesn't akways wipe good. Suspect this wound started out as MASD and has progressed to full thickness tissue loss, therefore now classifying as a Stage 3 PI. Edges are red and non-blanchable. See photo below. Pt c/o pain with resting and intense pain with wound cleansing. Wound culture obtained. On IV abx. Also has suspected ostomyelitis of right great toe, Podiatry has been consulted to address toe wound. [place] treatment/dressing recommendation would be Triad Hydrophillic Wound Dressing (traid paste) however we don't have any in house. For now recommend saline moistened Aquacell extra Ag placed into wound. skin prep to periwound skin. Cover w/Mepilex Sacral dressing. change every 3 days and PRN. Will see if we can order some Triad for Pt - Wound Gluteal Cleft Wound Type: Full Thickness (Fissure in gluteal cleft-suspect it started as MASD and has prgressed to full thickness wound; stage 3 PI.) Pressure Ulcer Stage: III Wound General Appearance: Reddened, Unapproximated Wound Bed Greatest Portion: Dusky Red Wound Bed Lesser Portion: Yellow (Slough) (scattered) Wound Surrounding Tissue Appearance: Bright Red (carol ann wound bright red) Wound Length: 7.5 cm Wound Width: 1 cm Wound Depth: 0.5 cm Wound Drainage Amount: None - ANTHONY Comment:: n/a - Pain Pain Level: 8 (Pain with cleasing. unable to complete attempted debridement with debrisoft d/t pain. ) Pain Scale Used: Adult - Recomendation Recomendation:: Gluteal Cleft- Cleanse wound with NS. Pat dry, Apply skin prep to periwound. Place NS moistened Aquacell Ag into wound bed. Cover with Sacral Mepilex w/border. Ensure good contact of mepilex dressing to Gluteal cleft wound. Change every 3 days and PRN. Physcian/Nurse Practioner Notified: Yes (Eliseo) Referrals: Dietary (nutrition consult for wound healing.)
--- NOTE | 2020-12-26 18:00 | W.PM.PROGNOT ---
Date of Service Date of service: 12/26/20 Time of Service: 15:00 Assessment and Plan Assessment and plan (1) Right hallux osteomyelitis: Status: Chronic Assessment and plan: The patient does not appear septic from this but given his neutropenia, this is a great port of entry for infection. Continue empiric antibiotics. May require surgical intervention. Appreciate podiatry consult. (2) Pancytopenia: Status: Chronic Assessment and plan: Chronic, due to transfusion-dependent MDS. s/p 2 units of platelets today. s/p 1 unit of pRBCs and platelets yesterday in infusion room prior to his presentation to ED. No active bleeding except for scant epistaxis x 1. Monitor for bleeding. (3) Sacral decubitus ulcer: Status: Acute Assessment and plan: Present on admission. Failure to thrive at home. Wound care consulted - appreciate recommendations. Wound does not look infected, per wound care. Cx sent. Continue wound care. (4) MDS (myelodysplastic syndrome): Status: Acute Assessment and plan: Followed at [facility], started on decitabine 09/16/20. (5) Prostate cancer: Status: Chronic Assessment and plan: F/u as outpatient with the [facility]. It does not appear that [email or web address] is following him for this per my review of records. It was treated with radiation in 2005; PSA undetectable in 2019. He is followed by Dr Gaines of urology. (6) DVT prophylaxis: Status: Acute Assessment and plan: Chemical and mechanical DVT ppx are contraindicated due to thrombocytopenia (7) Discharge planning issues: Status: Acute Assessment and plan: Full code PT/OT consults Palliative care consults. Abx course will determine whether the patient will require a swing bed level stay - will continue to discuss with podiatry. Subjective Subjective Interval history since last seen: Mr Chamorro states he feels fine. He denies dizziness, chest pain,shortness of breath, nausea, pain. He was evaluated by Dr Rosas who felt his R great toe wound and possible osteomyelitis were likely chronic and the patient might require a limited amputation of the great toe. [facility] and, therefore, the patient is staying at our facility, with which the patient is ok. Exam Narrative Exam Narrative: General: Pleasant elderly male, quite talkative, A&Ox3, sitting comfortably in a chair HEENT: EOMI, MMM Heart: RRR, no m/r/g Lungs: CTAB Abdomen: soft, nontender, nondistneded Extremities: R great toe wound with non-purulent appearing bloody drainage medially Objective Last Vital Signs Temp 36.5 C 12/26/20 16:38 Pulse 65 12/26/20 16:38 Resp 20 12/26/20 16:38 BP 125/63 12/26/20 16:38 Pulse Ox 96 12/26/20 16:38 Laboratory Results - last 24 hr 12/25/20 12/25/20 12/25/20 18:05 18:05 18:15 WBC 0.54 L* RBC 2.62 L Hgb 7.5 L Hct 22.8 L MCV 87.0 MCH 28.6 MCHC 32.9 RDW 14.6 H Plt Count 9 L* MPV Immature Gran % Neutrophils % 27.7 Lymphocytes % 35.2 Monocytes % 24.1 Eosinophils % 0.0 Basophils % 0.0 Metamyelocytes % Other Cells % Nucleated RBC % 0 Absolute Neutrophils 0.15 L* Absolute Lymphocytes 0.19 L Absolute Monocytes 0.13 Absolute Eosinophils 0.00 Absolute Basophils 0.00 RBC Morphology Normal Basophilic Stippling VBG Lactate 1.4 Sodium 139 Potassium 3.9 Chloride 102 Carbon Dioxide 30.5 Anion Gap 6.5 BUN 22 H Creatinine 1.0 Estimated GFR/1.73 m2 >= 60.00 Glucose 105 Calcium 9.1 Magnesium Total Bilirubin 1.1 H AST 12 L ALT 9 L Alkaline Phosphatase 108 Troponin I NT-Pro-B Natriuret Pep 6864 H Total Protein 6.6 Albumin 3.0 L TSH 1.54 Urine Color Urine Clarity Urine pH Ur Specific [place] Urine Protein Urine Ketones Urine Blood Urine Nitrite Urine Bilirubin Urine Urobilinogen Ur Leukocyte Esterase Urine RBC Urine WBC Ur Epithelial Cells Urine Crystals Urine Bacteria Urine Casts Urine Mucus Urine Other Ur Culture Indicated? Urine Glucose COVID-19 Source SARS-CoV-2 (PCR) Patient ABO/Rh 12/25/20 12/25/20 12/26/20 19:25 21:35 06:20 WBC RBC Hgb Hct MCV MCH MCHC RDW Plt Count MPV Immature Gran % Neutrophils % Lymphocytes % Monocytes % Eosinophils % Basophils % Metamyelocytes % Other Cells % Nucleated RBC % Absolute Neutrophils Absolute Lymphocytes Absolute Monocytes Absolute Eosinophils Absolute Basophils RBC Morphology Basophilic Stippling VBG Lactate Sodium 140 Potassium 3.6 Chloride 103 Carbon Dioxide 30.4 Anion Gap 6.6 BUN 16 D Creatinine 0.7 Estimated GFR/1.73 m2 >= 60.00 Glucose 85 Calcium 8.7 Magnesium Total Bilirubin AST ALT Alkaline Phosphatase Troponin I NT-Pro-B Natriuret Pep Total Protein Albumin TSH Urine Color Yellow Urine Clarity Clear Urine pH 7.5 Ur Specific [place] 1.020 Urine Protein Trace H Urine Ketones 15 H Urine Blood Negative Urine Nitrite Negative Urine Bilirubin Small H Urine Urobilinogen 2.0 H Ur Leukocyte Esterase Negative Urine RBC Negative Urine WBC 0-2 Ur Epithelial Cells Negative Urine Crystals Negative Urine Bacteria Negative Urine Casts Negative Urine Mucus Negative Urine Other Negative Ur Culture Indicated? No Urine Glucose Negative COVID-19 Source Nasal/Nares SARS-CoV-2 (PCR) Negative Patient ABO/Rh 12/26/20 12/26/20 12/26/20 06:20 06:20 06:20 WBC 0.52 L* RBC 2.48 L Hgb 7.0 L Hct 21.7 L MCV 87.5 MCH 28.2 MCHC 32.3 RDW 14.7 H Plt Count 6 L* MPV 9.6 Immature Gran % 9.6 Neutrophils % 28.9 Lymphocytes % 42.3 Monocytes % 19.2 Eosinophils % 0.0 Basophils % 0.0 Metamyelocytes % Other Cells % Nucleated RBC % 0 Absolute Neutrophils 0.15 L* Absolute Lymphocytes 0.22 L Absolute Monocytes 0.10 Absolute Eosinophils 0.00 Absolute Basophils 0.00 RBC Morphology See Below Basophilic Stippling Present VBG Lactate Sodium Potassium Chloride Carbon Dioxide Anion Gap BUN Creatinine Estimated GFR/1.73 m2 Glucose Calcium Magnesium 1.8 Total Bilirubin AST ALT Alkaline Phosphatase Troponin I < 0.05 NT-Pro-B Natriuret Pep Total Protein Albumin TSH Urine Color Urine Clarity Urine pH Ur Specific [place] Urine Protein Urine Ketones Urine Blood Urine Nitrite Urine Bilirubin Urine Urobilinogen Ur Leukocyte Esterase Urine RBC Urine WBC Ur Epithelial Cells Urine Crystals Urine Bacteria Urine Casts Urine Mucus Urine Other Ur Culture Indicated? Urine Glucose COVID-19 Source SARS-CoV-2 (PCR) Patient ABO/Rh 12/26/20 06:30 WBC RBC Hgb Hct MCV MCH MCHC RDW Plt Count MPV Immature Gran % Neutrophils % Lymphocytes % Monocytes % Eosinophils % Basophils % Metamyelocytes % Other Cells % Nucleated RBC % Absolute Neutrophils Absolute Lymphocytes Absolute Monocytes Absolute Eosinophils Absolute Basophils RBC Morphology Basophilic Stippling VBG Lactate Sodium Potassium Chloride Carbon Dioxide Anion Gap BUN Creatinine Estimated GFR/1.73 m2 Glucose Calcium Magnesium Total Bilirubin AST ALT Alkaline Phosphatase Troponin I NT-Pro-B Natriuret Pep Total Protein Albumin TSH Urine Color Urine Clarity Urine pH Ur Specific [place] Urine Protein Urine Ketones Urine Blood Urine Nitrite Urine Bilirubin Urine Urobilinogen Ur Leukocyte Esterase Urine RBC Urine WBC Ur Epithelial Cells Urine Crystals Urine Bacteria Urine Casts Urine Mucus Urine Other Ur Culture Indicated? Urine Glucose COVID-19 Source SARS-CoV-2 (PCR) Patient ABO/Rh A Positive
[2020-12-26] MEDS: Rosuvastatin 10 MG TAB PO (19:35)
[2020-12-27] VITALS (13 sets, daily range): BP systolic 118–162; BP diastolic 47–75; PULSE 50–68; RESP 16–18; TEMP 36.1–37.2; O2SAT 95–100
[2020-12-27] MEDS: VANCOMYCIN/WATER (PEG) 1.25 GM/250 ML BAG IV ×3 (04:20→23:24)
[2020-12-27 06:41] LABS: Abs Immature Grans 0.09 10^3/uL (0.0-0.06); Absolute Eosinophil Count 0.01 10^3/uL (0.0-0.7); MCH 28.2 pg (27.0-33.0); MCHC 32.7 % (32.0-36.0); MCV 86.3 fL (80-95); MPV 9.4 fL (8.0-11.0); Nucleated RBC 0 %; RBC 2.34 10^6/uL (4.36-5.78); RDW 14.6 % (11.8-14.1); RDW-SD 45.4 fL
[2020-12-27 06:57] LABS: Anion Gap 7.6 mmol/L (3-11); BUN 15 mg/dL (7-18); CO2 29.4 mmol/L (21.0-32.0); CREATININE 0.8 mg/dL (0.70-1.30); Calcium 8.5 mg/dL (8.5-10.1); Chloride 103 mmol/L (98-107); Glucose 106 mg/dL (74-106); Magnesium 1.7 mg/dL (1.8-2.4); Potassium 3.4 mmol/L (3.5-5.1); Sodium 140 mmol/L (136-145)
[2020-12-27 07:10] LABS: Absolute Monocyte Count 0.05 10^3/uL (0.1-0.8)
[2020-12-27 07:14] LABS: WBC 0.67 10^3/uL (4.4-10.8)
[2020-12-27 07:15] LABS: HCT 20.2 % (40.0-50.0); HGB 6.6 g/dL (13.5-17.5)
[2020-12-27 07:16] LABS: Metamyelocytes % 2; Myelocytes % 2; Platelet Count 10 10^3/uL (130-400)
[2020-12-27 07:17] LABS: Absolute Neutrophil Count 0.16 10^3/uL (1.2-6.7); Diff Comment Manual Differential; Hypochromasia 1+; Other Cells % 2
[2020-12-27] MEDS: Allopurinol 300 MG TAB PO (08:53)
[2020-12-27] MEDS: CIPROFLOXACIN 400 MG/200 ML BAG 200 MG IVPB ×2 (08:53→21:37)
[2020-12-27] MEDS: Acetaminophen 325 MG TAB 650 MG PO (08:53)
[2020-12-27] MEDS: hydroCHLOROthiazide 25 MG TAB PO (08:53)
[2020-12-27] MEDS: Acyclovir 400 MG TAB PO ×2 (08:53→19:44)
[2020-12-27] MEDS: Potassium Chloride 10 MEQ CAPCR PO (08:53)
[2020-12-27] MEDS: Magnesium Oxide 400 MG TAB PO ×3 (08:53→19:44)
[2020-12-27] MEDS: Losartan 25 MG TAB PO (08:54)
[2020-12-27] MEDS: Atenolol 25 MG TAB PO (08:54)
[2020-12-27] MEDS: Normal Saline 500 ML 30 ML IV (09:03)
--- NOTE | 2020-12-27 10:01 | PT.INNT ---
PT Notes Visit Reasons: Osteomyelitis Pt is on hold today as per nursing request.
[2020-12-27] MEDS: Potassium Chloride 20 MEQ TABCR PO (11:11)
[2020-12-27] MEDS: traMADol 50 MG TAB PO (11:12)
[2020-12-27] MEDS: diphenhydrAMINE 25 MG CAP PO (11:37)
--- NOTE | 2020-12-27 13:15 | W.PM.PROGNOT ---
Date of Service Date of service: 12/27/20 Time of Service: 13:10 Assessment and Plan Assessment and plan (1) Right hallux osteomyelitis: Status: Chronic Assessment and plan: He does not appear septic. He remains neutropenic. He has been seen by Podiatry. May require surgical intervention. [facility] Continue empiric antibiotics with IV Cipro and Vanco. (2) Pancytopenia: Status: Chronic Assessment and plan: Chronic, due to transfusion-dependent MDS. White blood cell count 0.67 today. He received 1 unit PRBCs today for hgb 6.6, 1 unit PLT ordered today. No active bleeding except for scant epistaxis x 1. Monitor for bleeding. (3) Sacral decubitus ulcer: Status: Acute Assessment and plan: Present on admission. Failure to thrive at home. Wound care consulted and made recommendations. Wound does not look infected, per wound care. Cx growing gram negative rods and mixed gram positive kamari. Continue wound care. (4) MDS (myelodysplastic syndrome): Status: Acute Assessment and plan: Followed at [facility], started on decitabine 09/16/20. (5) Prostate cancer: Status: Chronic Assessment and plan: F/u as outpatient with the [place]. It does not appear that [facility] is following him for this per my review of records. It was treated with radiation in 2005; PSA undetectable in 2019. He is followed by Dr Gaines of urology. (6) DVT prophylaxis: Status: Acute Assessment and plan: Chemical and mechanical DVT ppx are contraindicated due to thrombocytopenia (7) Discharge planning issues: Status: Acute Assessment and plan: Full code. PT/OT consults. PT recommends possible SNF for rehab prior to returning home. Palliative care consult pending. Code status needs to be discussed as well as frequent blood/PLT transfusions. May need swing bed for extended course of antibiotics. This case was discussed with Dr. Ruiz who is in agreement. Subjective Subjective Interval history since last seen: Mr. Chamorro states he is feeling OK, not great. His pain is better with tramadol. He denies dizziness, SOB, coughing, wheezing, CP/pressure. He is eating and drinking and tolerating his diet. He denies N/V/D. He is receiving 1 unit of PRBCs at this time. He will get a unit of PLT today as well. We briefly discussed CODE status, he states he is a FULL CODE. Exam Narrative Exam Narrative: General: pleasant, elderly man, sitting up in the recliner, awake and alert, talkative. Answers questions appropriately. Skin is Pale. HEENT: normocephalic, atraumatic, pupils equal and round, EOMI, mucous membranes moist. Neck: supple, no JVD. Cardiovascular: heart sounds regular, nontachycardic, no murmur. Respiratory: respirations are even and unlabored, lung sounds are clear throughout. GI: +BS, soft, nontender on palpation, nondistended. Extremities: +1 pitting edema to bilateral feet and ankles. R great toe with dressing intact. Objective Last Vital Signs Temp 36.7 C 12/27/20 12:53 Pulse 50 L 12/27/20 12:53 Resp 18 12/27/20 12:53 BP 133/75 12/27/20 12:53 Pulse Ox 99 12/27/20 12:53 Laboratory Results - last 24 hr 12/26/20 12/27/20 12/27/20 06:30 06:15 06:15 WBC 0.67 L* RBC 2.34 L Hgb 6.6 L* Hct 20.2 L* MCV 86.3 MCH 28.2 MCHC 32.7 RDW 14.6 H Plt Count 10 L* D MPV 9.4 Immature Gran % See Differential Neutrophils % 24.0 Lymphocytes % 60.0 Monocytes % 8.0 Eosinophils % 2.0 Basophils % 0.0 Metamyelocytes % 2 Myelocytes % 2 Other Cells % 2 Nucleated RBC % 0 Absolute Neutrophils 0.16 L* Absolute Lymphocytes 0.40 L Absolute Monocytes 0.05 L Absolute Eosinophils 0.01 Absolute Basophils 0.00 RBC Morphology See Below Hypochromasia 1+ Sodium 140 Potassium 3.4 L Chloride 103 Carbon Dioxide 29.4 Anion Gap 7.6 BUN 15 Creatinine 0.8 Estimated GFR/1.73 m2 >= 60.00 Glucose 106 Calcium 8.5 Magnesium 1.7 L Patient ABO/Rh A Positive Antibody Screen NEGATIVE Crossmatch See Detail
--- NOTE | 2020-12-27 15:05 | PDOC.CMPRO ---
- If Service Date Differs Date of service: 12/27/20 Time of Service: 15:05 Care Management Progress Note S/O: Per provider note, Mariana continues on empiric antibiotics with IV Cipro and Vanco for osteomyelitis. Mariana is transfusion-dependent and receives frequent blood/PLT transfusions. PT evaluation done yesterday, 12/26/20, recommends SNF placement but patient is not agreeable to this and wishes to return home. CM will continue to follow. A: Mariana is a 75 year old male admitted to [facility] on 12/25/2020 for osteomyelitis. P: Mariana continues to be closely monitored. He remains on a 4 - 6 week course of IV abx for osteomyelitis. Anticipate he will return home with a resumption of Home Health services when medically cleared by provider. Transport home will either be via private vehicle with a friend or via RCT arranged by CM. CM will continue to follow.
[2020-12-27] MEDS: Rosuvastatin 10 MG TAB PO (19:44)
[2020-12-28] VITALS (10 sets, daily range): BP systolic 101–164; BP diastolic 63–83; PULSE 57–112; RESP 16–20; TEMP 36.4–37.2; O2SAT 93–96
[2020-12-28] MEDS: Normal Saline Flush 10 ML SYR IVP ×3 (04:00→20:15)
[2020-12-28 07:08] LABS: HCT 21.9 % (40.0-50.0); HGB 7.1 g/dL (13.5-17.5); MCH 29.2 pg (27.0-33.0); MCHC 32.4 % (32.0-36.0); MCV 90.1 fL (80-95); MPV 11.3 fL (8.0-11.0); RBC 2.43 10^6/uL (4.36-5.78); RDW 15.1 % (11.8-14.1); RDW-SD 49.9 fL
[2020-12-28 07:13] LABS: Anion Gap 1.1 mmol/L (3-11); BUN 17 mg/dL (7-18); CO2 30.9 mmol/L (21.0-32.0); CREATININE 0.7 mg/dL (0.70-1.30); Calcium 8.5 mg/dL (8.5-10.1); Chloride 104 mmol/L (98-107); Glucose 103 mg/dL (74-106); Magnesium 1.7 mg/dL (1.8-2.4); Potassium 3.6 mmol/L (3.5-5.1); Sodium 136 mmol/L (136-145)
[2020-12-28 07:37] LABS: WBC 0.74 10^3/uL (4.4-10.8)
[2020-12-28 07:38] LABS: Platelet Count 12 10^3/uL (130-400)
[2020-12-28] MEDS: CIPROFLOXACIN 400 MG/200 ML BAG 200 MG IVPB (09:36)
[2020-12-28] MEDS: Magnesium Oxide 400 MG TAB PO ×4 (09:37→20:15)
[2020-12-28] MEDS: Losartan 25 MG TAB PO (09:37)
[2020-12-28] MEDS: Acyclovir 400 MG TAB PO ×2 (09:37→20:15)
[2020-12-28] MEDS: hydroCHLOROthiazide 25 MG TAB PO (09:37)
[2020-12-28] MEDS: Atenolol 25 MG TAB PO (09:37)
[2020-12-28] MEDS: Allopurinol 300 MG TAB PO (09:37)
[2020-12-28] MEDS: Potassium Chloride 10 MEQ CAPCR PO (09:38)
[2020-12-28] MEDS: Polyethylene Glycol 3350 17 GM PACKET PO (09:51)
--- NOTE | 2020-12-28 09:51 | W.PM.DS.N ---
Date of service: 12/28/20 Time of Service: 09:53 DS: Diagnosis Discharge Diagnosis (1) Right hallux osteomyelitis: Start date: 12/28/20 Start time: 09:53 Status: Chronic Asessment and Plan: Seen by Dr. Rosas due to chronic issue and with pancytopenia with neutropenia did not feel operation would benefit patient. More beneficial to treat conservatively. BCNGTD. Radiograph revealed lucenecies therefore osteo could not be r/o. Eligio has great bone penetration and therefore would be appropriate for oseto. Will treat with PO oseto for 4 week for suspicion of osteo, he will need [facility] in [facility] mean time and they can decide further course they can continue treatment at that time for 6 weeks or decide surgery. Patient is refusing rehab. He would like to go home. Will resume HH services with PT/OT/STAFF PSYCHIATRIST/RN/COMPUTER SCIENTIST Hold levaquin (2) Pancytopenia: Start date: 12/28/20 Start time: 10:02 Status: Chronic Asessment and Plan: ANC 0.16 PLT 12 WBC 7.1 Will receive 1 unit PRBC prior to discharge he did receive 1 unit PRBC yesterday as well. Platelets highest yet Continue normal blood count checks and resume transfusions as outpatient. (3) Sacral decubitus ulcer: Start date: 12/28/20 Start time: 10:07 Status: Acute Asessment and Plan: Present on admission. Failure to thrive at home. Wound care consulted and made recommendations. Wound does not look infected, per wound care. Cx growing gram negative rods . Continue wound care. (4) MDS (myelodysplastic syndrome): Start date: 12/28/20 Start time: 10:09 Status: Chronic Asessment and Plan: Followed at [facility], started on decitabine 09/16/20. (5) Prostate cancer: Start date: 12/28/20 Start time: 10:10 Status: Chronic Asessment and Plan: [facility] It does not appear that [facility] is following him for this per my review of records. It was treated with radiation in 2005; PSA undetectable in 2019. He is followed by Dr Gaines of urology. discussed with Dr. Ruiz Discharge Plan Disposition Patient Disposition: HOME W/HOME HEALTH SERVICE Condition: Stable Discharge Details Reason For Visit: Osteomyelitis Admit Date/Time: 12/25/20 21:20 Admit Provider: Rusty Ruiz Attending Provider: Rusty Ruiz Primary Care Provider: Aurelia [facility]brook [facility] Course Hospital Course: 75 y.o male with PMH of prostate cancer, IDDM, HTN, HLD, [facility] to [facility] for lab work done the day before. He was recently diagnosed with leukopenia and anemia on 08/06/20. Since he has been receiving transfusions through the [facility]. His only symptoms being excretional dyspnea. He denied any cough or sputum production and no fever or chills or rigors or night sweats. He admited that he had some recent hematuria for which he underwent a cystoscopy last week for evaluation of hemorrhagic cystitis. His admission CBC showed a white count of 1190 with neutropenia of 70 and anemia with a hemoglobin of 6.1 g and hematocrit 19% with a platelet count 69,000. No blasts were seen on the CBC. Transfer center at [facility] was contacted by the ER attending Kimberly Ghosh who spoke with hematology at [facility] and per telephone consultation with Dr. Arevalo no antibiotics were advised on admission and they declined to take the patient in transfer but recommend the patient be admitted here at [facility] for blood transfusion. Dr. Card consulted for further evaluation for his [facility] Home Meds and New Rx's Prescriptions: No Action cyanocobalamin (vitamin B-12) 1,000 mcg Tablet 1,000 mcg PO DAILY RF: 0 allopurinol 300 mg Tablet 300 mg PO DAILY RF: 0 levofloxacin 750 mg Tablet 750 mg PO DAILY RF: 0 rosuvastatin 10 mg Tablet 10 mg PO DAILY RF: 0 cholecalciferol (vitamin D3) 25 mcg (1,000 unit) Tablet 25 mcg PO DAILY RF: 0 magnesium oxide 400 mg magnesium Tablet 400 mg PO BID RF: 0 polyethylene glycol 3350 [Miralax] 17 gram Powder In Packet 17 g PO DAILY RF: 0 atenolol 25 mg Tablet 25 mg PO DAILY RF: 0 potassium chloride 10 mEq Tablet Extended Release 10 meq PO DAILY RF: 0 acyclovir 400 mg Tablet 400 mg PO BID RF: 0 losartan 25 mg Tablet 25 mg PO DAILY RF: 0 hydrochlorothiazide 25 mg Tablet 25 mg PO DAILY RF: 0 posaconazole 100 mg Tablet,Delayed Release (Dr/Ec) 300 mg PO DAILY RF: 0 DS: Data Vitals/I&O Vitals and I&O: Vital Signs Temperature 37.2 C 12/28/20 07:22 Temperature Source Temporal Artery Scan 12/28/20 07:22 Pulse 85 12/28/20 07:22 Pulse Rhythm Regular 12/28/20 02:00 Respiratory Rate 19 12/28/20 07:22 Respiratory Effort Non-Labored 12/28/20 02:00 Respiratory Depth Normal 12/28/20 02:00 Respiratory Pattern Normal 12/28/20 02:00 Blood Pressure 144/71 H 12/28/20 07:22 Blood Pressure Mean 82 12/25/20 22:16 Blood Pressure Position Sitting 12/25/20 17:38 Pulse Oximetry 96 12/28/20 07:22 Oxygen Delivery Method Room Air 12/28/20 07:22 Oxygen Flow Rate 0 12/28/20 07:22 Pain Level 0 12/28/20 07:22 Intake & Output 12/27/20 12/27/20 12/28/20 11:59 23:59 11:59 Intake Total 800 / 2070 1270 / 2070 240 / 240 Output Total 300 / 300 750 / 750 Balance 800 / 1770 970 / 1770 -510 / -510 Weight 94.602 kg 96 kg Intake: IV 450 / 920 470 / 920 Oral 350 / 550 200 / 550 240 / 240 Blood Product 600 / 600 Apheresis Platelets Unit 200 / 200 [id number] Rbc Leuko Reduced Unit 400 / 400 [id number] Output: Urine 300 / 300 750 / 750 Other: Urine Color Straw Yellow Dark Penelope Urine Appearance Clear Clear Clear Urine Odor Normal None None Voiding Methods Toilet Urinal Urinal Diaper Data Completed and Pending Labs on day of discharge: Labs from last 24 hours 12/28/20 12/28/20 12/27/20 06:15 06:15 14:25 WBC 0.74 L* RBC 2.43 L Hgb 7.1 L Hct 21.9 L MCV 90.1 D MCH 29.2 MCHC 32.4 RDW 15.1 H Plt Count 12 L* MPV 11.3 H Sodium 136 Potassium 3.6 Chloride 104 Carbon Dioxide 30.9 Anion Gap 1.1 L BUN 17 Creatinine 0.7 Estimated GFR/1.73 m2 >= 60.00 Glucose 103 Calcium 8.5 Magnesium 1.7 L Vancomycin Trough 18.0 Patient ABO/Rh Antibody Screen Crossmatch 12/26/20 06:30 WBC RBC Hgb Hct MCV MCH MCHC RDW Plt Count MPV Sodium Potassium Chloride Carbon Dioxide Anion Gap BUN Creatinine Estimated GFR/1.73 m2 Glucose Calcium Magnesium Vancomycin Trough Patient ABO/Rh A Positive Antibody Screen NEGATIVE Crossmatch See Detail Preliminary micro results at discharge 12/25/20 18:15 Blood Culture - Preliminary Blood NO GROWTH 48 HOURS 12/25/20 18:05 Blood Culture - Preliminary Blood NO GROWTH 48 HOURS [facility] Medical History MDS (myelodysplastic syndrome) Prostate cancer Right hallux osteomyelitis Sacral decubitus ulcer Toe ulcer Social History Smoking/Tobacco Use Status: Former Tobacco Use Smoking risk assessment performed?: Yes Alcohol Intake: former Substance use type: does not use Do you feel safe at home: Yes Do you feel safe in your relationship?: Yes
[2020-12-28] MEDS: VANCOMYCIN/WATER (PEG) 1.25 GM/250 ML BAG IV (10:15)
--- NOTE | 2020-12-28 10:30 | PGE_ITS ---
Date of Service Date of service: 12/28/20 Time of Service: 10:30 Assessment and Plan Assessment and plan (1) Right hallux osteomyelitis: Start date: 12/28/20 Start time: 10:43 Status: Chronic Assessment and plan: He does not appear septic. He remains neutropenic. He has been seen by Podiatry. At this time operation is not the best course of action therefore will continue nonsurgical intervention, question of osteo. Will switch to PO cipro x 4 weeks. Patient initially wanted to be discharged home with services today however he realized that after a little thought he would not be able to care for himself and therefore; would like to go to rehab facility. CM will work on referrals. [facility]. They can manage and decided whether patient warrants surgery, though with his pancytopenia and neutorpenia he is not a good candidate. Will start at 4 weeks and he could go longer on cipro, this has better bone penetration then levo. Will hold levo at this time. Vanco dcd, cipro PO BID . (2) Pancytopenia: Start date: 12/28/20 Start time: 10:49 Status: Chronic Assessment and plan: Chronic, due to transfusion-dependent MDS. ANC 0.16 PLT 12 WBC 7.1 Will receive 1 unit PRBC today he did receive 1 unit PRBC yesterday as well. Platelets highest yet (3) Sacral decubitus ulcer: Start date: 12/28/20 Start time: 10:53 Status: Acute Assessment and plan: Present on admission. Failure to thrive at home. Wound care consulted and made recommendations. Wound does not look infected, per wound care. Cx growing gram negative rods and mixed gram positive kamari. Continue wound care. Cipro PO (4) MDS (myelodysplastic syndrome): Start date: 12/28/20 Start time: 10:54 Status: Chronic Assessment and plan: Followed at [facility], started on decitabine 09/16/20. (5) Prostate cancer: Start date: 12/28/20 Start time: 10:54 Status: Chronic Assessment and plan: [facility] It does not appear that [facility] is following him for this per my review of records. It was treated with radiation in 2005; PSA undetectable in 2019. He is followed by Dr Gaines of urology. (6) DVT prophylaxis: Start date: 12/28/20 Start time: 10:54 Status: Acute Assessment and plan: Chemical and mechanical DVT ppx are contraindicated due to thrombocytopenia (7) Discharge planning issues: Start date: 12/28/20 Start time: 10:55 Status: Acute Assessment and plan: Rehab on discharge. CM to place referrals discussed with Dr. Ruiz Subjective Subjective Patient reports: no new complaints Interval history since last seen: Patient sitting up in chair. Realized that he is unable to take care of himself at home. He would like to go to rehab facility. Therefore CM will work on placement. He denies CP, SOB N/V/D. He will transitioned to PO cipro x 4 weeks with follow up with [facility] to decide if they want to continue for another 4 weeks or proceede with surgery Exam Narrative Exam Narrative: General: pleasant, elderly man, sitting up in the recliner, awake and alert, talkative. Answers questions appropriately. Skin is Pale. HEENT: normocephalic, atraumatic, pupils equal and round, EOMI, mucous membranes moist. Neck: supple, no JVD. Cardiovascular: heart sounds regular, nontachycardic, no murmur. Respiratory: respirations are even and unlabored, lung sounds are clear thr oughout. GI: +BS, soft, nontender on palpation, nondistended. Extremities: +1 pitting edema to bilateral feet and ankles. R great toe with dressing intact. Objective Last Vital Signs Temp 37.2 C 12/28/20 07:22 Pulse 85 12/28/20 07:22 Resp 19 12/28/20 07:22 BP 144/71 H 12/28/20 07:22 Pulse Ox 96 12/28/20 07:22 Laboratory Results - last 24 hr 12/26/20 12/27/20 12/28/20 06:30 14:25 06:15 WBC RBC Hgb Hct MCV MCH MCHC RDW Plt Count MPV Sodium 136 Potassium 3.6 Chloride 104 Carbon Dioxide 30.9 Anion Gap 1.1 L BUN 17 Creatinine 0.7 Estimated GFR/1.73 m2 >= 60.00 Glucose 103 Calcium 8.5 Magnesium 1.7 L Vancomycin Trough 18.0 Patient ABO/Rh A Positive Antibody Screen NEGATIVE Crossmatch See Detail 12/28/20 06:15 WBC 0.74 L* RBC 2.43 L Hgb 7.1 L Hct 21.9 L MCV 90.1 D MCH 29.2 MCHC 32.4 RDW 15.1 H Plt Count 12 L* MPV 11.3 H Sodium Potassium Chloride Carbon Dioxide Anion Gap BUN Creatinine Estimated GFR/1.73 m2 Glucose Calcium Magnesium Vancomycin Trough Patient ABO/Rh Antibody Screen Crossmatch
--- NOTE | 2020-12-28 10:30 | PT.INNT ---
PT Notes Visit Reasons: Osteomyelitis Inpatient Physical Therapy Treatment Note [facility] Date: 12/28/20 PRECAUTIONS:[] SUBJECTIVE: Pt is on hold for PT as per nursing and is going to be discharged today. OBJECTIVE: [] PAIN: [] BED MOBILITY/TRANSFERS Rolling L/R: [] Supine-sit: [] Sit-supine: [] Sit-stand: [] Stand-sit: [] Bed-Chair: [] Chair-bed: [] GAIT Assistive Device: [] Weight bearing: [] Assist: [] Distance: [] Deviation: [] VITALS: [] THEREX: [] STAIRS:[] ASSESSMENT: [] PLAN: [] TREATMENT CODE/TIME: []
[2020-12-28] MEDS: Acetaminophen 325 MG TAB 650 MG PO (10:38)
[2020-12-28] MEDS: diphenhydrAMINE 25 MG CAP PO (10:38)
--- NOTE | 2020-12-28 17:25 | PDOC.CMPRO ---
- If Service Date Differs Date of service: 12/28/20 Time of Service: 17:25 Care Management Progress Note S/O: Mariana is laying in bed watching television when CM comes to meet with him. He is pleasant and easily engages in conversation. He shares that he has decided to go to a rehab, as he is having difficulty managing at home, even with Home Health services. Mariana would prefer a rehab in the [facility] and shares that he has been at the [facility] and [facility] before and is not opposed to returning there. In the event they do not have any available beds, he would also consider going to the [facility] in [place]. CM will continue to follow. A: Mariana is a 75 year old male admitted to [facility] on 12/25/2020 for osteomyelitis. P: Plan is for Mariana to go to rehab. CM will coordinate a referral to [facility] Transportation will depend on disposition. CM will continue to support Mariana and any discharge planning needs.
[2020-12-28] MEDS: Rosuvastatin 10 MG TAB PO (20:15)
[2020-12-28] MEDS: Ciprofloxacin 500 MG TAB PO (20:15)
[2020-12-29] VITALS (13 sets, daily range): BP systolic 99–171; BP diastolic 52–75; PULSE 60–104; RESP 16–24; TEMP 36.4–38.4; O2SAT 90–97
--- NOTE | 2020-12-29 | DI.RAD_ITS ---
Exam(s) XR PORTABLE CHEST AP EXAM: XR PORTABLE CHEST AP CLINICAL HISTORY: neutropenic fever TECHNIQUE: COMPARISON: CR,XR XR CHEST 2V PA LATERAL from 12/25/2020 FINDINGS: The heart is mildly enlarged. There is PICC line in position the tip of which overlies the superior vena cava. Lungs are grossly clear. No pleural effusion on this frontal film. No pneumothorax. IMPRESSION: RADIATION DOSE DELIVERED: Total DLP
[2020-12-29 06:56] LABS: Abs Immature Grans 0.11 10^3/uL (0.0-0.06); HCT 24.8 % (40.0-50.0); HGB 8.2 g/dL (13.5-17.5); MCH 28.9 pg (27.0-33.0); MCHC 33.1 % (32.0-36.0); MCV 87.3 fL (80-95); Nucleated RBC 0 %; RBC 2.84 10^6/uL (4.36-5.78); RDW 15.4 % (11.8-14.1); RDW-SD 48.9 fL
[2020-12-29 07:13] LABS: Platelet Count 6 10^3/uL (130-400)
[2020-12-29 07:31] LABS: Anion Gap 7.2 mmol/L (3-11); BUN 14 mg/dL (7-18); CO2 29.8 mmol/L (21.0-32.0); CREATININE 0.7 mg/dL (0.70-1.30); Calcium 8.6 mg/dL (8.5-10.1); Chloride 105 mmol/L (98-107); Glucose 117 mg/dL (74-106); Potassium 3.5 mmol/L (3.5-5.1); Sodium 142 mmol/L (136-145)
[2020-12-29 07:32] LABS: Magnesium 1.9 mg/dL (1.8-2.4)
[2020-12-29 07:37] LABS: Absolute Lymphocyte Count 0.36 10^3/uL (1.2-3.4); Absolute Monocyte Count 0.27 10^3/uL (0.1-0.8); Absolute Neutrophil Count 0.27 10^3/uL (1.2-6.7); Bands % 2
[2020-12-29 07:38] LABS: Diff Comment Manual Differential; Microcytosis 1+
--- NOTE | 2020-12-29 08:09 | OT.INIE ---
Occupational Therapy Notes Inpatient Occupational Therapy Evaluation Date: 12/29/20 Referring Doctor:Jacinda Gomes MD OT Orders: Non Urgent Precautions: Fall, Contact, Full PATIENT PROFILE/ADMITTING DIAGNOSIS: Pt is a 75 year old male admitted through the ED for the following dx of prostate cancer, sacral decubitus ulcer, toe ulcer, MDS, osteomyelitis, neutropenia, pacytopenia. Past Medical History: Prostate cancer Pancytopenia Social History/Home Situation: Pt [place] He states that he was previously receiving HH services for (A) With cleaning his home but he reports that he hasn't seen them in a while. He notes that he does his own laundry in the basement of his building which has an elevator. He is unable to perform his LE dressing (I). He states that he has a tub shower and has difficulty getting on and off the toilet. He is receptive to DME but states that he would like to return home if possible. Equipment owned/DME: FWW, grab bars SUBJECTIVE: Pt was sitting in chair when OT arrived. He was agreeable to consult and wants to return home if possible. OBJECTIVE: General Observation: Pleasant and agreeable, Picc line in (L) UE Mental Status: A&Ox3 Pain: no c/o pain ROM: RUE AROM WFL L UE AROM WFL STRENGTH: RUE 4-/5 throughout LUE 4-/5 throughout FUNCTIONAL MOBILITY/ADLS: Transfers with FWW BATHING sitting in chair Bathing UE (I) face Bathing LE pt denies DRESSING sitting in chair with mod vc throughout Dressing UE don and [facility] gown pt required mod (A) Dressing LE max (A) donning socks GROOMING Pt has ideal ROM in order to perform hair brushing. Pt does not have any teeth or dentures. TOILETING On toilet pt is unable to stand without LOB per nursing, he denies sitting and requires CGA, SBA in order to maintain balance. EATING Sitting in chair pt is able to drink liquids (I) and grasp cup and bend elbow to mouth. BALANCE: Static sitting Normal Dynamic Sitting Normal SPECIAL TESTS: Daily Activity Limitations Standardized Measure [facility] AM -PAC ?6 clicks? Daily Activity Inpatient Short Form: Raw score: 18 Standardized score: 38.66 CMS score: 46.65% INFORMED CONSENT/EDUCATION: Pt instructed in purpose of OT Consult and plan of care. ASSESSMENT: Patient is a 75-year-old male referred to occupational therapy services with diagnosis of prostate cancer, sacral decubitus ulcer, toe ulcer, MDS, osteomyelitis, neutropenia, pacytopenia. Patient presents with clinical signs and symptoms consistent with dx, as demonstrated by the following impairment level findings/functional limitations: Impairments in ADL/IADL and leisure activities, decreased LE dressing and bathing, difficulty getting on and off the toilet, decreased fine motor control, decreased functional mobility and balance required for performance of ADLs. AMPAC score 18 Patient is assessed as a Moderate 44918 complexity based on the following: History: see above Examination: see functional limitations as noted above Presentation: evolving Decision Making: AMPAC score 18 GOALS Goals x1 week 1. Transfers (I) 2. Dressing sitting in chair (I) UE and mod (I) LE 3. Bathing standing at sink with FWW (I) UE and mod (I) LE 4. Toileting on toilet (I) 5. Eating (I) PLAN OF CARE/TREATMENT PLAN: 1x/day, 5 days/ week x 1week Initiate Occupational Therapy Services for bathing, dressing, grooming, toileting, eating, transfer training. DISCHARGE RECOMMENDATIONS Based on pts current level of function, OT recommends that pt go to SNF vs. Home with HH services for (A) in home care tasks, dressing, bathing and further adaptive equipment needs in the home setting. OT recommends a raised toilet seat to increase pts safety during his toileting routines, a shower bench for safety in the shower due to decreased stability. TREATMENT TIME/MINUTES/CODES 41154, [id number], 25 minutes (07:40) Mariana Sales OTR/L [facility]
--- NOTE | 2020-12-29 08:15 | PT.INNT ---
Date of service: 12/29/20 Time of Service: 08:00 PT Notes Visit Reasons: Osteomyelitis Patient with hematocrit of 24.8%, Hgb of 8.2 g/dL, and platelet of 6 x 10^3 uL. Hold physical therapy session at this time until lab values reach normal limits safe for participation.
[2020-12-29] MEDS: Polyethylene Glycol 3350 17 GM PACKET PO (09:19)
[2020-12-29] MEDS: Normal Saline Flush 10 ML SYR IVP ×2 (09:19→19:48)
[2020-12-29] MEDS: Magnesium Oxide 400 MG TAB PO ×2 (09:20→19:49)
[2020-12-29] MEDS: Ciprofloxacin 500 MG TAB PO ×2 (09:20→19:49)
[2020-12-29] MEDS: Potassium Chloride 10 MEQ CAPCR PO (09:20)
[2020-12-29] MEDS: Losartan 25 MG TAB PO (09:20)
[2020-12-29] MEDS: Allopurinol 300 MG TAB PO (09:20)
[2020-12-29] MEDS: hydroCHLOROthiazide 25 MG TAB PO (09:20)
[2020-12-29] MEDS: Acyclovir 400 MG TAB PO ×2 (09:20→19:49)
[2020-12-29] MEDS: Acetaminophen 325 MG TAB 650 MG PO ×2 (09:21→19:49)
[2020-12-29] MEDS: Atenolol 25 MG TAB PO (09:21)
--- NOTE | 2020-12-29 11:59 | W.PM.PROGNOT ---
Date of Service Date of service: 12/29/20 Time of Service: 11:59 Assessment and Plan Assessment and plan (1) Right hallux osteomyelitis: Start date: 12/29/20 Start time: 12:17 Status: Chronic Assessment and plan: He does not appear septic. He remains neutropenic. He has been seen by Podiatry. At this time operation is not the best course of action therefore will continue nonsurgical intervention, question of osteo. Levo on hold as he is on Cipro BID for better bone penetration for questionable osteo x 4 week course . [facility] for [facility] of his toe They can manage and decided whether patient warrants surgery, though with his pancytopenia and neutorpenia he is not a good candidate. . (2) Pancytopenia: Start date: 12/29/20 Start time: 12:23 Status: Chronic Assessment and plan: Chronic, due to transfusion-dependent MDS. ANC 0.16 PLT 16 WBC 7.1 Transfuse 2 units of platelets (3) Sacral decubitus ulcer: Start date: 12/29/20 Start time: 12:33 Status: Acute Assessment and plan: Present on admission. Failure to thrive at home, starting to have failure to thrive here see above Wound care consulted and made recommendations. Wound does not look infected, per wound care. Cx growing gram negative rods and mixed gram positive kamari. Continue wound care. Cipro PO (4) MDS (myelodysplastic syndrome): Start date: 12/29/20 Start time: 12:33 Status: Chronic Assessment and plan: Followed at [facility], started on decitabine 09/16/20. (5) Prostate cancer: Start date: 12/29/20 Start time: 12:33 Status: Chronic Assessment and plan: [facility] It does not appear that [facility] is following him for this per my review of records. It was treated with radiation in 2005; PSA undetectable in 2019. He is followed by Dr Gaines of urology. (6) DVT prophylaxis: Start date: 12/29/20 Start time: 12:33 Status: Acute Assessment and plan: Chemical and mechanical DVT ppx are contraindicated due to thrombocytopenia (7) Discharge planning issues: Start date: 12/29/20 Start time: 12:33 Status: Acute Assessment and plan: Rehab on discharge. to place referrals discussed with Dr. Ruiz Subjective Subjective Patient reports: other Interval history since last seen: Patient appears tired today, he does not feel well. His PLt count is 6 will transfuse 2 units platelets. He denies CP, SOB, N/v/d, He does state he has no appetitie and does not feel like eating. Marinol started to stimulate appetite. Exam Narrative Exam Narrative: General: pleasant, elderly man, laying in bed he appears fatigued, pale and worn out, awake and alert. Answers questions appropriately. HEENT: normocephalic, atraumatic, pupils equal and round, EOMI, mucous membranes moist. Neck: supple, no JVD. Cardiovascular: heart sounds regular, nontachycardic, no murmur. Respiratory: respirations are even and unlabored, lung sounds are clear throughout. GI: +BS, soft, nontender on palpation, nondistended. Extremities: +2 pitting edema to right leg. R great toe with dressing intact. Objective Last Vital Signs Temp 36.4 C L 12/29/20 11:51 Pulse 60 12/29/20 11:51 Resp 20 12/29/20 11:51 BP 116/58 L 12/29/20 11:51 Pulse Ox 97 12/29/20 11:51 Laboratory Results - last 24 hr 12/26/20 12/29/20 12/29/20 06:30 06:35 06:35 WBC RBC Hgb Hct MCV MCH MCHC RDW Plt Count MPV Immature Gran % Neutrophils % Band Neutrophils % Lymphocytes % Monocytes % Eosinophils % Basophils % Nucleated RBC % Absolute Neutrophils Absolute Lymphocytes Absolute Monocytes Absolute Eosinophils Absolute Basophils RBC Morphology Microcytosis Sodium 142 Potassium 3.5 Chloride 105 Carbon Dioxide 29.8 Anion Gap 7.2 BUN 14 Creatinine 0.7 Estimated GFR/1.73 m2 >= 60.00 Glucose 117 H Calcium 8.6 Magnesium 1.9 Crossmatch See Detail 12/29/20 06:35 WBC 0.90 L* RBC 2.84 L Hgb 8.2 L Hct 24.8 L MCV 87.3 MCH 28.9 MCHC 33.1 RDW 15.4 H Plt Count 6 L* MPV Immature Gran % 0.0 Neutrophils % 28.0 Band Neutrophils % 2 Lymphocytes % 40.0 Monocytes % 30.0 Eosinophils % 0.0 Basophils % 0.0 Nucleated RBC % 0 Absolute Neutrophils 0.27 L* Absolute Lymphocytes 0.36 L Absolute Monocytes 0.27 Absolute Eosinophils 0.00 Absolute Basophils 0.00 RBC Morphology See Below Microcytosis 1+ Sodium Potassium Chloride Carbon Dioxide Anion Gap BUN Creatinine Estimated GFR/1.73 m2 Glucose Calcium Magnesium Crossmatch
--- NOTE | 2020-12-29 13:01 | PDOC.CMPRO ---
Care Management Progress Note S/O: Mariana remains pleasant and easily engaged in conversation. CM spoke with Tam[facility] who reports starting the process of prior authorizing his [employer] insurance for rehab stay; awaiting determination and bed offer. CM will continue to follow. A: Mariana is a 75 year old male admitted to [facility] on 12/25/2020 for osteomyelitis. P: Anticipate Mariana will discharge to [facility] and rehab pending insurance approval and bed offer; awaiting determination. CM will continue to support Mariana and any discharge planning needs.
[2020-12-29] MEDS: Dronabinol 2.5 MG CAP PO (19:49)
[2020-12-29] MEDS: Rosuvastatin 10 MG TAB PO (19:49)
--- NOTE | 2020-12-29 20:17 | W.PM.PROGNOT ---
Date of Service Date of service: 12/29/20 Time of Service: 20:17 Subjective Subjective Interval history since last seen: Called for fever. case reviewed. Briefly patient with MDS admitted 12/25 for possible infected sacral decub, initially treated with Vanco and Zosyn. Wound cxx mixed growth. Since changed to Vanco and Levaquin, now Cipro, for presumed chronic osteo right hallux. Note that Vanco d/c'ed 24 hour ago. I was called for temp to 38.4. Patient does note a degree of urinary urgency but otherwise more or less his usual self. On exam lungs grossly clear; heart w/o murmur; abdomen soft and NT; sacral decub appears to be granulating with very modest surface colonization; right hallux indurated w/o erythema or d/c, with exophytic appearing growth on known ulcer (nursing reports that toe is generally unchangd in appearance). A/P: Neutropenic fever. Will check urine and CXR, with blood cxx, and begin empiric Cefimpime thereafter. Will also add back dose of Vanco since occurrence of fever within 24 hour of stopping suggests possibility of release of suppression. Objective Last Vital Signs Temp 38.4 C H 12/29/20 19:49 Pulse 75 12/29/20 19:41 Resp 24 12/29/20 19:41 BP 157/67 H 12/29/20 19:41 Pulse Ox 94 12/29/20 19:41 Laboratory Results - last 24 hr 12/25/20 12/26/20 12/29/20 18:15 06:30 06:35 WBC RBC Hgb Hct MCV MCH MCHC RDW Plt Count MPV Immature Gran % Neutrophils % Band Neutrophils % Lymphocytes % Monocytes % Eosinophils % Basophils % Nucleated RBC % Absolute Neutrophils Absolute Lymphocytes Absolute Monocytes Absolute Eosinophils Absolute Basophils RBC Morphology Microcytosis Sodium Potassium Chloride Carbon Dioxide Anion Gap BUN Creatinine Estimated GFR/1.73 m2 Glucose Calcium Magnesium 1.9 Path Cons Comment Patient ABO/Rh Crossmatch See Detail 12/29/20 12/29/20 12/29/20 06:35 06:35 12:15 WBC 0.90 L* RBC 2.84 L Hgb 8.2 L Hct 24.8 L MCV 87.3 MCH 28.9 MCHC 33.1 RDW 15.4 H Plt Count 6 L* MPV Immature Gran % 0.0 Neutrophils % 28.0 Band Neutrophils % 2 Lymphocytes % 40.0 Monocytes % 30.0 Eosinophils % 0.0 Basophils % 0.0 Nucleated RBC % 0 Absolute Neutrophils 0.27 L* Absolute Lymphocytes 0.36 L Absolute Monocytes 0.27 Absolute Eosinophils 0.00 Absolute Basophils 0.00 RBC Morphology See Below Microcytosis 1+ Sodium 142 Potassium 3.5 Chloride 105 Carbon Dioxide 29.8 Anion Gap 7.2 BUN 14 Creatinine 0.7 Estimated GFR/1.73 m2 >= 60.00 Glucose 117 H Calcium 8.6 Magnesium Path Cons Comment Patient ABO/Rh A Positive Crossmatch
--- NOTE | 2020-12-29 22:14 | DI.VRAD_ITS ---
PROCEDURE INFORMATION: Exam: XR Chest Exam date and time: 12/29/2020 8:29 PM Age: 75 years old Clinical indication: Patient HX: Fever, neutropenic TECHNIQUE: Imaging protocol: XR of the chest. Views: 1 view. Total images: 1 COMPARISON: CR XR CHEST 2V PA LATERAL 25/12/2020 18:37 FINDINGS: Lungs: Unremarkable. No consolidation. Pleural spaces: Unremarkable. No pleural effusion. No pneumothorax. Heart/Mediastinum: The cardiomediastinal silhouette is enlarged but unchanged. Bones/joints: Unremarkable. IMPRESSION: Stable cardiomegaly. Clear lungs. Dictated and Authenticated by: Trice Sams MD. Ordering:JEANETTE Giron MD
[2020-12-30] VITALS (10 sets, daily range): BP systolic 119–158; BP diastolic 58–75; PULSE 57–89; RESP 16–24; TEMP 36.4–37.5; O2SAT 89–96
[2020-12-30] MEDS: CEFEPIME 1 GM in Normal Saline 50 ML IVPB ×3 (00:23→17:38)
[2020-12-30] MEDS: Normal Saline 500 ML 50 ML IV (00:23)
[2020-12-30] MEDS: Normal Saline Flush 10 ML SYR IVP ×3 (00:24→23:21)
[2020-12-30] MEDS: VANCOMYCIN 1,250 MG in Normal Saline 250 ML 166.6666 MG IVPB (01:55)
[2020-12-30 02:20] LABS: Bilirubin Negative (Negative); Blood Negative (Negative); Clarity Clear (Clear); Glucose Negative (Negative); Ketones Negative (Negative); Leukocyte Esterase Negative (Negative); Nitrite Negative (Negative)
[2020-12-30 02:43] LABS: Bacteria Moderate HPF (Negative); C & S Indicated? Yes; Casts Negative LPF (Negative); Crystals Negative HPF (Negative); Epithelial Cells Rare HPF (Negative); Mucus Trace (Negative); Other Cells Rare Renal (Negative)
[2020-12-30 06:36] LABS: HCT 21.7 % (40.0-50.0); MCH 28.7 pg (27.0-33.0); MCHC 32.3 % (32.0-36.0); MCV 88.9 fL (80-95); MPV 10.3 fL (8.0-11.0); Nucleated RBC 0 %; RBC 2.44 10^6/uL (4.36-5.78); RDW 15.5 % (11.8-14.1); RDW-SD 50.1 fL
[2020-12-30 07:25] LABS: Platelet Count 10 10^3/uL (130-400); WBC 0.84 10^3/uL (4.4-10.8)
[2020-12-30 07:26] LABS: Absolute Lymphocyte Count 0.25 10^3/uL (1.2-3.4); Absolute Neutrophil Count 0.21 10^3/uL (1.2-6.7)
[2020-12-30 07:27] LABS: Absolute Eosinophil Count 0.02 10^3/uL (0.0-0.7); Absolute Monocyte Count 0.06 10^3/uL (0.1-0.8); Atypical Lymphocytes % 1; Metamyelocytes % 4; Myelocytes % 7; Other Cells % 18; Promyelocytes % 7
[2020-12-30 07:28] LABS: Diff Comment Manual Differential; Hypochromasia 1+
[2020-12-30] MEDS: Allopurinol 300 MG TAB PO (08:14)
[2020-12-30] MEDS: Dronabinol 2.5 MG CAP PO ×2 (08:15→20:24)
[2020-12-30] MEDS: Ciprofloxacin 500 MG TAB PO ×2 (08:15→20:24)
[2020-12-30] MEDS: hydroCHLOROthiazide 25 MG TAB PO (08:15)
[2020-12-30] MEDS: Losartan 25 MG TAB PO (08:15)
[2020-12-30] MEDS: Acyclovir 400 MG TAB PO ×2 (08:15→20:24)
[2020-12-30] MEDS: Potassium Chloride 10 MEQ CAPCR PO (08:15)
[2020-12-30] MEDS: Magnesium Oxide 400 MG TAB PO ×2 (08:15→20:24)
[2020-12-30] MEDS: Atenolol 25 MG TAB PO (08:15)
[2020-12-30] MEDS: Polyethylene Glycol 3350 17 GM PACKET PO (08:16)
--- NOTE | 2020-12-30 12:22 | PGE_ITS ---
Date of Service Date of service: 12/30/20 Time of Service: 12:22 Assessment and Plan Assessment and plan (1) Fever: Status: Acute Assessment and plan: in setting of neutropenia cultures pending, source likely foot antibiotics broadened, vanco and cefepime added (2) Right hallux osteomyelitis: Status: Chronic Assessment and plan: max temp overnight 38.4. He remains neutropenic. He has been seen by Podiatry. At this time operation is not the best course of action therefore will continue nonsurgical intervention, question of osteo. originally Levaquin on hold as he was on Cipro BID for better bone penetration for questionable osteo x 4 week course, now antibiotics broadened to cefepime and vancomycin [facility] will [facility] to them for further treatment of his toe They can manage and decided whether patient warrants surgery, though with his pancytopenia and neutorpenia he is not a good candidate. . (3) Pancytopenia: Status: Chronic Assessment and plan: Chronic, due to transfusion-dependent MDS. ANC 0.16 PLT 16 WBC 7.1 Transfuse 2 units of platelets (4) Sacral decubitus ulcer: Status: Acute Assessment and plan: Present on admission. Failure to thrive at home, starting to have failure to thrive here see above Wound care consulted and made recommendations. Wound does not look infected, per wound care. Cx growing gram negative rods and mixed gram positive kamari. Continue wound care. Cipro PO (5) MDS (myelodysplastic syndrome): Status: Chronic Assessment and plan: Followed at [facility], started on decitabine 09/16/20. (6) Prostate cancer: Status: Chronic Assessment and plan: F[place] as outpatient with [facility]. It does not appear that [facility] is following him for this per my review of records. It was treated with radiation in 2005; PSA undetectable in 2019. He is followed by Dr Gaines of urology. (7) DVT prophylaxis: Status: Acute Assessment and plan: Chemical and mechanical DVT ppx are contraindicated due to thrombocytopenia (8) Discharge planning issues: Status: Acute Assessment and plan: Rehab on discharge. CM to place referrals goals of care discussed and at this point patient wishes to continue with transfusions, antibiotics and work up as needed. He has a palliative care consult pending. discussed with Dr. Ruiz Subjective Subjective Patient reports: no new complaints, tolerating liquids well, tolerating a regular diet, voiding w/o difficulty and fever; denies shortness of breath Interval history since last seen: max temp overnight 38.4. no c/o Exam Const General: cooperative and no acute distress Nutritional Appearance: overweight Orientation: alert and oriented x3 HENMT Head: normocephalic and atraumatic Eyes Sclera: sclerae normal Pupils: PERRL Resp Effort & Inspection: normal respiratory effort Auscultation: clear to auscultation bilaterally Cardio Rate: regular rate Rhythm: regular rhythm Heart Sounds: S1 normal and S2 normal GI Palpation: soft and nontender Auscultation: normal bowel sounds Skin Wounds: wounds noted (Sacral ulcer; stage 2-3. Stage 2 R great toe ulcer. ) Neuro General: no focal motor deficits Cognition: normal cognition Speech: speech normal Extrem General: no pedal edema and no calf tenderness Objective Last Vital Signs Temp 37.2 C 12/30/20 11:23 Pulse 71 12/30/20 11:23 Resp 17 12/30/20 11:23 BP 129/65 12/30/20 11:23 Pulse Ox 94 12/30/20 11:23 Laboratory Results - last 24 hr 12/25/20 12/26/20 12/29/20 18:15 06:30 12:15 WBC RBC Hgb Hct MCV MCH MCHC RDW Plt Count MPV Immature Gran % Neutrophils % Lymphocytes % Atypical Lymphs % Monocytes % Eosinophils % Basophils % Metamyelocytes % Myelocytes % Promyelocytes % Other Cells % Nucleated RBC % Absolute Neutrophils Absolute Lymphocytes Absolute Monocytes Absolute Eosinophils Absolute Basophils RBC Morphology Hypochromasia Urine Color Urine Clarity Urine pH Ur Specific [place] Urine Protein Urine Ketones Urine Blood Urine Nitrite Urine Bilirubin Urine Urobilinogen Ur Leukocyte Esterase Urine RBC Urine WBC Ur Epithelial Cells Urine Crystals Urine Bacteria Urine Casts Urine Mucus Urine Other Ur Culture Indicated? Urine Glucose Path Cons Comment Patient ABO/Rh A Positive Crossmatch See Detail 12/30/20 12/30/20 12/30/20 02:00 02:07 06:20 WBC 0.84 L* RBC 2.44 L Hgb 7.0 L Hct 21.7 L MCV 88.9 MCH 28.7 MCHC 32.3 RDW 15.5 H Plt Count 10 L* D MPV 10.3 Immature Gran % See Differential Neutrophils % 25.0 Lymphocytes % 29.0 Atypical Lymphs % 1 Monocytes % 7.0 Eosinophils % 2.0 Basophils % 0.0 Metamyelocytes % 4 Myelocytes % 7 Promyelocytes % 7 Other Cells % 18 Nucleated RBC % 0 Absolute Neutrophils 0.21 L* Absolute Lymphocytes 0.25 L Absolute Monocytes 0.06 L Absolute Eosinophils 0.02 Absolute Basophils 0.00 RBC Morphology See Below Hypochromasia 1+ Urine Color Yellow Cancelled Urine Clarity Clear Cancelled Urine pH 7.0 Cancelled Ur Specific [place] 1.020 Cancelled Urine Protein 30 H Cancelled Urine Ketones Negative Cancelled Urine Blood Negative Cancelled Urine Nitrite Negative Cancelled Urine Bilirubin Negative Cancelled Urine Urobilinogen 1.0 H Cancelled Ur Leukocyte Esterase Negative Cancelled Urine RBC 3-5 H Urine WBC 3-5 Ur Epithelial Cells Rare Urine Crystals Negative Urine Bacteria Moderate Urine Casts Negative Urine Mucus Trace Urine Other Rare Renal Ur Culture Indicated? Yes Urine Glucose Negative Cancelled Path Cons Comment Patient ABO/Rh Crossmatch
[2020-12-30] MEDS: VANCOMYCIN/WATER (PEG) 1.25 GM/250 ML BAG IVPB ×2 (13:00→23:21)
--- NOTE | 2020-12-30 16:44 | CMPROGNOTE_ITS ---
- If Service Date Differs Date of service: 12/30/20 Time of Service: 16:53 Care Management Progress Note S/O: Mariana remains pleasant and easily engaged in conversation. CM spoke at length with Mariana about his current presentation and plan. Eyad said he did not want to remain at the hospital for the rest of his life. He stated I would like to be somewhere nice. When CM asked about [facility], Eyad reported he did not think they would take him. CM explained that at his current level of care, he would not be able to leave the hospital without making some different decisions about his care. CM explained that SNF could not provide the current level of care that Eyad is requiring, but reviewed the possibility of hospice support at the rehab. Eyad reported he wanted to call his sister, Radha Tsai (CM listed number on white board). CM coordinated phone call, Eyad was able to talk to his sister and brother in law and explain that he is near the end. CM left Eyad to visit with his sister and brother in law on the phone and agreed to re-visit conversation re: end of life care decisions tomorrow. CM will continue to follow. A: Mariana is a 75 year old male admitted to [facility] on 12/25/2020 for osteomyelitis. P: Eyad is considering his options and moving toward making decisions; CM will c ontinue to support him in processing these difficult choices. Anticipate he will discharge to [facility] with Hospice support or remain at [facility] for end of life care.
--- NOTE | 2020-12-30 16:48 | INDS_ITS ---
Date of service: 12/30/20 PT Notes Visit Reasons: Osteomyelitis Physical Therapy Inpatient Discharge Summary Date: 12/30/20 Date of service: 12/26/2020 Referring Doctor: Jacinda Gomes MD PT Orders: PT CONSULT: limited ability to ambulate Precautions: protective precautions Patient Profile/Admitting Diagnosis: Patient admitted from ER with diagnosis of osteomyelitis, neutropenia and sacral ulcer. PMHX: prostate cancer pancytopenia Social History/Home Situation: Patient lives at [address], where he has a one level apartment with elevator access. He has Home Health nursing. Typically ambulates with either straight cane or rollator walker. Equipment Owned/DME: cane, FWW, 4WW. Handicap accessible apartment Subjective: NT. See most recent ALTERNATIVE FINANCING SPECIALIST notes. Objective: General Observation: NT. See most recent ALTERNATIVE FINANCING SPECIALIST notes. Mental Status: NT. See most recent ALTERNATIVE FINANCING SPECIALIST notes. Pain: NT. See most recent ALTERNATIVE FINANCING SPECIALIST notes. Vital Signs: NT. See most recent ALTERNATIVE FINANCING SPECIALIST notes. ROM: Right Upper Extremity: Grossly WFL Left Upper Extremity: Grossly WFL Right Lower Extremity: Grossly WFL Left Lower Extremity: Grossly WFL Strength: Right Upper Extremity: Shoulder flexion 4-/5. Biceps 4/5. Triceps 4-/5. Left Upper Extremity: Shoulder flexion 4-/5. Biceps 4/5. Triceps 4-/5. Right Lower Extremity: Hip flexion 4 -/5. Quads 4/5. Ankle dorsiflexion 3/5 or greater. Left Lower Extremity: Hip flexion 4/5. Quads 4/5. Ankle dorsiflexion 3/5 or greater Bed Mobility/Transfers: Sit?stand: CGA Stand?sit: CGA Gait: Patient ambulates 6 feet with FWW, CGA. Balance: Static Sitting: Normal Dynamic Sitting: Good Static Standing: Fair Dynamic Standing: Fair Assessment: Patient was only seen at time of initial evaluation on 12/30/2020 and had been placed on hold by nursing due to critically low platelets, hematocrit, and hemoglobin. On 12/29/2020, [facility] but needed to stay for platelet transfusion with PT treatment deferred due to critically low lab values. Today, patient's Hgb went back down from 8.2 to 7.0 g/dL. Consultation with hospitalist was done regarding the value of physical therapy considering exercise is contraindicated given his low lab values. Dr. Ruiz states that patient has had chronically low hct, hgb, and platelets that he is unsure that physical therapy may provide any headway for patient. Goals: Goals X1 week 1. Supine-Sit: Independent N/A 2. Sit-Supine: Independent N/A 3. Sit-Stand: Independent N/A 4. Stand-Sit: Independent N/A 5. Bed-Chair: Supervision with FWW N/A 6. Chair-Bed: Supervision with FWW N/A 7. Gait: Patient able to ambulate 100 feet with FW W and supervision N/A DISCHARGE RECOMMENDATIONS: Patient will benefit from placement for long-term care. TREATMENT CODE/TIME: OH Thank you for the opportunity to participate in the care of this patient. Frances Ochoa PT, DPT, CLT [facility] [place], [place]
[2020-12-30] MEDS: Acetaminophen 325 MG TAB 650 MG PO (17:38)
[2020-12-30] MEDS: Rosuvastatin 10 MG TAB PO (20:24)
[2020-12-31] MEDS: CEFEPIME 1 GM in Normal Saline 50 ML IVPB ×2 (00:57→08:03)
[2020-12-31 03:33] VITALS: BP 148/72; PULSE 78; RESP 19; TEMP 36.8; O2SAT 97
[2020-12-31 07:35] VITALS: BP 145/64; PULSE 68; RESP 20; TEMP 37.9; O2SAT 96
[2020-12-31 07:36] LABS: Abs Immature Grans 0.09 10^3/uL (0.0-0.06); MCH 28.8 pg (27.0-33.0); MCHC 32.1 % (32.0-36.0); MCV 89.7 fL (80-95); MPV 9.9 fL (8.0-11.0); Nucleated RBC 0 %; RBC 2.33 10^6/uL (4.36-5.78); RDW 15.7 % (11.8-14.1); RDW-SD 51.4 fL
[2020-12-31 07:44] LABS: Vancomycin, Trough 19.6 ug/mL (10.0-20.0)
[2020-12-31] MEDS: Dronabinol 2.5 MG CAP PO ×2 (08:02→20:23)
[2020-12-31] MEDS: Polyethylene Glycol 3350 17 GM PACKET PO (08:03)
[2020-12-31] MEDS: hydroCHLOROthiazide 25 MG TAB PO (08:03)
[2020-12-31] MEDS: Acyclovir 400 MG TAB PO ×2 (08:03→20:24)
[2020-12-31] MEDS: Potassium Chloride 10 MEQ CAPCR PO (08:03)
[2020-12-31] MEDS: Magnesium Oxide 400 MG TAB PO ×2 (08:03→20:23)
[2020-12-31] MEDS: Ciprofloxacin 500 MG TAB PO ×2 (08:03→20:23)
[2020-12-31] MEDS: Losartan 25 MG TAB PO (08:03)
[2020-12-31] MEDS: Atenolol 25 MG TAB PO (08:03)
[2020-12-31] MEDS: Allopurinol 300 MG TAB PO (08:03)
[2020-12-31] MEDS: Normal Saline Flush 10 ML SYR IVP (08:04)
[2020-12-31] MEDS: VANCOMYCIN/WATER (PEG) 1.25 GM/250 ML BAG IVPB (08:04)
[2020-12-31 08:11] LABS: Absolute Lymphocyte Count 0.27 10^3/uL (1.2-3.4); Absolute Monocyte Count 0.03 10^3/uL (0.1-0.8); Atypical Lymphocytes % 1; Bands % 0
[2020-12-31 08:12] LABS: Metamyelocytes % 12; Myelocytes % 8; Promyelocytes % 6
[2020-12-31 08:14] LABS: Absolute Neutrophil Count 0.13 10^3/uL (1.2-6.7); Platelet Count 4 10^3/uL (130-400); WBC 0.67 10^3/uL (4.4-10.8)
[2020-12-31 08:15] LABS: HCT 20.9 % (40.0-50.0); HGB 6.7 g/dL (13.5-17.5)
[2020-12-31 08:16] LABS: Hypochromasia 2+; Other Cells % 10
--- NOTE | 2020-12-31 08:35 | CMPROGNOTE_ITS ---
Care Management Progress Note S/O: Mariana met with Palliative Care SAP PORTAL DEVELOPER, Cecile, to discuss his goals of care. His sister participated in the conversation as well. Eyad completed a DNR/DNI COLST form and opted to stop the blood transfusions. [facility]. Anticipate if he discharges to the rehab it will be with Hospice support, if he begins to rapidly decline he may remain at [facility]. CM will continue to follow. A: Mariana is a 75 year old male admitted to [facility] on 12/25/2020 for osteomyelitis. P: Eyad is considering his options and moving toward making decisions; CM will continue to support him in processing these difficult choices. Anticipate he will discharge to [facility] with Hospice support or remain at [facility] for end of life care.
--- NOTE | 2020-12-31 08:35 | PDOC.CMPRO ---
Care Management Progress Note S/O: Mariana met with Palliative Care GRINDER OUTSIDE DIAMETER, Cecile, to discuss his goals of care. His sister participated in the conversation as well. Eyad completed a DNR/DNI COLST form and opted to stop the blood transfusions. [facility]. Anticipate if he discharges to the rehab it will be with Hospice support, if he begins to rapidly decline he may remain at [facility]. CM will continue to follow. A: Mariana is a 75 year old male admitted to [facility] on 12/25/2020 for osteomyelitis. P: Eyad is considering his options and moving toward making decisions; CM will continue to support him in processing these difficult choices. Anticipate he will discharge to [facility] with Hospice support or remain at [facility] for end of life care.
--- NOTE | 2020-12-31 11:27 | W.PALLCONSUL ---
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 He has been receiving blood products daily while he has been hospitalized at [facility]. He is also being treated for osteomyelitis of the right hallux as well as for a sacral decubitus ulcer. He was a FULL CODE. Palliative was consulted to discuss goals of care and CODE status. Consideration of futility was being made. After extensive discussion, Mariana verbalizes understanding that if the transfusions of blood products is stopped, it will lead to his decline and . He is agreeable to stop all blood products. He would like to continue oral antibiotics when he is discharged to the rehab. He wants comfort care and hospice services if he goes to the Rehab. We discussed CODE status, he is a DNR/DNI, we completed a COLST to reflect his wishes. While I was with the patient, I called his sister, Radha padron to discuss the above with her. She verbalizes understanding, she has questions about who will take care of his stuff in his apartment. Mariana spoke to her after and was tearful on the phone while talking about his plan. 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 He has been receiving blood products daily while he has been hospitalized at [facility]. He is also being treated for osteomyelitis of the right hallux as well as for a sacral decubitus ulcer. Palliative was consulted to discuss goals of care and CODE status. Consideration of futility was being made. After extensive discussion, Mariana verbalizes understanding that if the transfusions of blood products is stopped, it will lead to his decline and . He is agreeable to stop all blood products. We also reviewed CODE status. He is a DNR/DNI, we completed a COLST form to reflect his wishes. I called his sister to discuss the above. He is transitioned to comfort focused care. He has been accepted to [facility] and rehab, however, if he has a rapid decline, he will remain here at [facility] for end of life care. Review of Systems All systems reviewed & are unremarkable except as noted in HPI and below [facility] Medical History (Updated 12/31/20 @ 12:32 by Cecile Murillo NP) MDS (myelodysplastic syndrome) Palliative care patient Physician orders for life-sustaining treatment (POLST) form indicates patient wish for qh-rnl-[id number] status Prostate cancer Right hallux osteomyelitis Sacral decubitus ulcer Toe ulcer Social History Smoking/Tobacco Use Status: Former Tobacco Use Smoking risk assessment performed?: Yes Alcohol Intake: former Substance use type: does not use Do you feel safe at home: Yes Do you feel safe in your relationship?: Yes Exam Narrative Exam Narrative: General: pleasant, elderly man, sitting up in the recliner, awake and alert, talkative. Answers questions appropriately. Skin is Pale. HEENT: normocephalic, atraumatic, pupils equal and round, EOMI, slight bleeding from nose noted, mucous membranes moist. Neck: supple, no JVD. Cardiovascular: heart sounds regular, nontachycardic, no murmur. Respiratory: respirations are even and unlabored, lung sounds are clear throughout. GI: +BS, soft, nontender on palpation, nondistended. Extremities: +2 pitting edema to bilateral lower extremities. Results Last Vital Signs Temp 37.9 C H 12/31/20 07:35 Pulse 68 12/31/20 07:35 Resp 20 12/31/20 07:35 BP 145/64 H 12/31/20 07:35 Pulse Ox 96 12/31/20 07:35 Labs Result diagrams: 12/31/20 06:50 12/29/20 06:35 Labs: Laboratory Results - last 24 hr 12/31/20 12/31/20 06:50 06:50 WBC 0.67 L* RBC 2.33 L Hgb 6.7 L* Hct 20.9 L* MCV 89.7 MCH 28.8 MCHC 32.1 RDW 15.7 H Plt Count 4 L* D MPV 9.9 Immature Gran % See Differential Neutrophils % 20.0 Band Neutrophils % 0 Lymphocytes % 39.0 Atypical Lymphs % 1 Monocytes % 4.0 Eosinophils % 0.0 Basophils % 0.0 Metamyelocytes % 12 Myelocytes % 8 Promyelocytes % 6 Other Cells % 10 Nucleated RBC % 0 Absolute Neutrophils 0.13 L* Absolute Lymphocytes 0.27 L Absolute Monocytes 0.03 L Absolute Eosinophils 0.00 Absolute Basophils 0.00 Hypochromasia 2+ Vancomycin Trough 19.6
[2020-12-31 11:29] VITALS: BP 135/68; PULSE 63; RESP 20; TEMP 37; O2SAT 99
--- NOTE | 2020-12-31 15:29 | W.PM.PROGNOT ---
Date of Service Date of service: 12/31/20 Time of Service: 15:29 Assessment and Plan Assessment and plan (1) Palliative care patient: Status: Acute Assessment and plan: seen by palliative. POLST form completed, patient wishes for DNR/DNI now. wants no further transfusions. will likely pass quickly once stopped. may discuss end of life here with him vs discharge to LTC facility. (2) Fever: Status: Acute Assessment and plan: in setting of neutropenia cultures pending, source likely foot antibiotics broadened, vanco and cefepime day 2 (3) Right hallux osteomyelitis: Status: Chronic Assessment and plan: He remains neutropenic. He has been seen by Podiatry. At this time operation is not the best course of action therefore will continue nonsurgical intervention, question of osteo. originally Levaquin on hold as he was on Cipro BID for better bone penetration for questionable osteo x 4 week course, now antibiotics broadened to cefepime and vancomycin [facility] for [facility] treatment of his toe They can manage and decided whether patient warrants surgery, though with his pancytopenia and neutorpenia he is not a good candidate. . (4) Pancytopenia: Status: Chronic Assessment and plan: Chronic, due to transfusion-dependent MDS. ANC 0.16 PLT 16 WBC 7.1 Transfuse 2 units of platelets (5) Sacral decubitus ulcer: Status: Acute Assessment and plan: Present on admission. Failure to thrive at home, starting to have failure to thrive here see above Wound care consulted and made recommendations. Wound does not look infected, per wound care. Cx growing gram negative rods and mixed gram positive kamari. Continue wound care. Cipro PO (6) MDS (myelodysplastic syndrome): Status: Chronic Assessment and plan: Followed at [facility], started on decitabine 09/16/20. (7) Prostate cancer: Status: Chronic Assessment and plan: [facility] It does not appear that [facility] is following him for this per my review of records. It was treated with radiation in 2005; PSA undetectable in 2019. He is followed by Dr Gaines of urology. (8) DVT prophylaxis: Status: Acute Assessment and plan: Chemical and mechanical DVT ppx are contraindicated due to thrombocytopenia (9) Discharge planning issues: Status: Acute Assessment and plan: end of life care here vs LTC facility. case management following. discussed with Dr. Ruiz Subjective Subjective Patient reports: no new complaints Exam Const General: cooperative and no acute distress Nutritional Appearance: overweight Orientation: alert and oriented x3 HENMT Head: normocephalic and atraumatic Eyes Sclera: sclerae normal Pupils: PERRL Resp Effort & Inspection: normal respiratory effort Auscultation: clear to auscultation bilaterally Cardio Rate: regular rate Rhythm: regular rhythm Heart Sounds: S1 normal and S2 normal GI Palpation: soft and nontender Auscultation: normal bowel sounds Skin Wounds: wounds noted (Sacral ulcer; stage 2-3. Stage 2 R great toe ulcer. ) Neuro General: no focal motor deficits Cognition: normal cognition Speech: speech normal Extrem General: no pedal edema and no calf tenderness Psych Appearance: other (tearful) Objective Last Vital Signs Temp 37.0 C 12/31/20 11:29 Pulse 63 12/31/20 11:29 Resp 20 12/31/20 11:29 BP 135/68 12/31/20 11:29 Pulse Ox 99 12/31/20 11:29 Laboratory Results - last 24 hr 12/31/20 12/31/20 06:50 06:50 WBC 0.67 L* RBC 2.33 L Hgb 6.7 L* Hct 20.9 L* MCV 89.7 MCH 28.8 MCHC 32.1 RDW 15.7 H Plt Count 4 L* D MPV 9.9 Immature Gran % See Differential Neutrophils % 20.0 Band Neutrophils % 0 Lymphocytes % 39.0 Atypical Lymphs % 1 Monocytes % 4.0 Eosinophils % 0.0 Basophils % 0.0 Metamyelocytes % 12 Myelocytes % 8 Promyelocytes % 6 Other Cells % 10 Nucleated RBC % 0 Absolute Neutrophils 0.13 L* Absolute Lymphocytes 0.27 L Absolute Monocytes 0.03 L Absolute Eosinophils 0.00 Absolute Basophils 0.00 Hypochromasia 2+ Vancomycin Trough 19.6
[2020-12-31] MEDS: Docusate Sodium 100 MG CAP PO (20:24)
[2020-12-31] MEDS: Senna TAB PO (21:20)
[2021-01-01] MEDS: hydroCHLOROthiazide 25 MG TAB PO (08:13)
[2021-01-01] MEDS: Acyclovir 400 MG TAB PO ×2 (08:13→19:53)
[2021-01-01] MEDS: Magnesium Oxide 400 MG TAB PO ×2 (08:13→19:53)
[2021-01-01] MEDS: Polyethylene Glycol 3350 17 GM PACKET PO (08:13)
[2021-01-01] MEDS: Losartan 25 MG TAB PO (08:14)
[2021-01-01] MEDS: Dronabinol 2.5 MG CAP PO ×2 (08:14→19:53)
[2021-01-01] MEDS: Potassium Chloride 10 MEQ CAPCR PO (08:14)
[2021-01-01] MEDS: Ciprofloxacin 500 MG TAB PO ×2 (08:14→19:53)
[2021-01-01] MEDS: Allopurinol 300 MG TAB PO (08:14)
[2021-01-01] MEDS: Docusate Sodium 100 MG CAP PO ×2 (08:14→19:53)
--- NOTE | 2021-01-01 11:40 | CMPROGNOTE_ITS ---
- If Service Date Differs Date of service: 01/01/21 Time of Service: 11:40 Care Management Progress Note S/O: Eyad was lying in bed resting when CM met with him. He had had a busy day and was resting. Eyad had a palliative consult yesterday and made to decision to become DNR/DNI and to discontinue transfusions. He also had a Urology consult today and a jackson catheter was placed by Dr. Cordero for comfort. Eayd will likely remain at [facility] until Tuesday. At that time, if he survives, a decision will be made whether or not to transition him to hospice in a correction facility or remain here for end of life care. A: Mariana is a 75 year old male admitted to [facility] on 12/25/2020 for osteomyeli tis. P: Eyad is considering his options and moving toward making decisions; CM will continue to support him in processing these difficult choices. Anticipate he will discharge to [facility] with Hospice support or remain at [facility] for end of life care.
[2021-01-01] MEDS: Lidocaine 2% Jelly 11 ML SYR (11:55)
--- NOTE | 2021-01-01 13:18 | PGE_ITS ---
Date of Service Date of service: 01/01/21 Time of Service: 13:18 Assessment and Plan Assessment and plan (1) Palliative care patient: Status: Acute Assessment and plan: seen by palliative. POLST form completed, patient wishes for DNR/DNI now. wants no further transfusions. will likely pass quickly once stopped. may discuss end of life here with him vs discharge to LTC facility. (2) Fever: Status: Acute Assessment and plan: in setting of neutropenia cultures negative to date, source likely foot will continue ciprofloxacin for osteomyelitis. (3) Right hallux osteomyelitis: Status: Chronic Assessment and plan: He remains neutropenic. He has been seen by Podiatry. At this time operation is not the best course of action therefore will continue nonsurgical intervention, question of osteo. originally Levaquin on hold as he was on Cipro BID for better bone penetration for questionable osteo x 4 week course, now antibiotics broadened to cefepime a nd vancomycin Referral [facility] to [facility], will [facility] to them for further treatment of his toe They can manage and decided whether patient warrants surgery, though with his pancytopenia and neutorpenia he is not a good candidate. . (4) Pancytopenia: Status: Chronic Assessment and plan: Chronic, due to transfusion-dependent MDS. no longer will receive transfusions or have lab drawn (5) Sacral decubitus ulcer: Status: Acute Assessment and plan: Present on admission. Failure to thrive at home, starting to have failure to thrive here see above Wound care consulted and made recommendations. Wound does not look infected, per wound care. Cx growing gram negative rods and mixed gram positive kmaari. Continue wound care. Cipro PO (6) MDS (myelodysplastic syndrome): Status: Chronic Assessment and plan: Followed at [facility], started on decita bine 09/16/20. (7) Prostate cancer: Status: Chronic Assessment and plan: [facility] It was treated with radiation in 2005; PSA undetectable in 2019. He is followed by Dr Gaines of urology. (8) DVT prophylaxis: Status: Acute Assessment and plan: Chemical and mechanical DVT ppx are contraindicated due to thrombocytopenia (9) Discharge planning issues: Status: Acute Assessment and plan: end of life care here vs LTC facility. case management following. discussed with Dr. Ruiz Subjective Subjective Patient reports: no new complaints, tolerating liquids well and tolerating a regular diet Interval history since last seen: requesting indwelling jackson catheter but nursing unable to place. Exam Const General: cooperative and no acute distress Nutritional Appearance: overweight Orientation: alert and oriented x3 HENMT Head: normocephalic and atraumatic Eyes Sclera: sclerae normal Pupils: PERRL Resp Effort & Inspection: normal respiratory effort Auscultation: clear to auscultation bilaterally Cardio Rate: regular rate Rhythm: regular rhythm Heart Sounds: S1 normal and S2 normal GI Palpation: soft and nontender Auscultation: normal bowel sounds Skin Wounds: wounds noted (Sacral ulcer; stage 2-3. Stage 2 R great toe ulcer. ) Neuro General: no focal motor deficits Cognition: normal cognition Speech: speech normal Extrem General: no pedal edema and no calf tenderness Psych Appearance: other (tearful) Objective Last Vital Signs Temp 37.0 C 12/31/20 11:29 Pulse 63 12/31/20 11:29 Resp 20 12/31/20 11:29 BP 135/68 12/31/20 11:29 Pulse Ox 99 12/31/20 11:29
--- NOTE | 2021-01-01 13:51 | WOUNDCONS ---
- If Service Date Differs Date of service: 01/01/21 Time of Service: 13:51 Wound Initial Evaluation Narrative: Spoke with Dr. Ruiz regarding continuation of wound care services which have been discontinued at this time d/t change in status of patient to comfort measures only. Wound care team will sign off the case at this time per MD.
--- NOTE | 2021-01-01 15:33 | W.UROLOGYCON ---
Date of service: 01/01/21 Time of Service: 15:33 Assessment and Plan Assessment and plan (1) Prostate cancer: Status: Chronic Assessment and plan: We can generally leave the catheter in place for up to 4 weeks. If the patient were to survive that long, we could either remove the catheter for a voiding trial or change the catheter. Otherwise, the catheter could be removed anytime it is no longer needed for medical management. History of Present Illness History of Present Illness Chief Complaint: Prostate cancer Narrative: This is a 75-year old gentleman who was diagnosed with adenocarcinoma of the prostate back in 2016. I do not have access to his biopsy results. Based on his records, he was treated with external beam radiation and followed at the [facility] in [place]. His most recent notes mention that his PSA has been undetectable He has a history of myelodysplastic syndrome. He has required transfusions of blood products routinely, but has recently decided to forego these treatments and to move toward comfort measures only. He has a sacral decubitus and osteomyelitis. A Peña catheter has been requested for comfort measures The nursing staff has tried and not been successful at passing a catheter. Review of Systems Constitutional Constitutional: Denies chills, Reports fatigue, Denies fever(s) and Reports poor appetite ENT Ears, Nose, Mouth, and Throat: Denies vertigo Cardiovascular Cardiovascular: Denies chest pain Gastrointestinal Gastrointestinal: Denies nausea and Denies vomiting Neurologic Neurologic: Denies vertigo and Denies seizure-like activity Endocrine Endocrine: Reports fatigue Hematologic/Lymphatic Hematologic/Lymphatic: Reports easy bleeding and Reports easy bruising [facility] Medical History (Updated 12/31/20 @ 12:32 by Cecile Murillo NP) MDS (myelodysplastic syndrome) Palliative care patient Physician orders for life-sustaining treatment (POLST) form indicates patient wish for [id number] status Prostate cancer Right hallux osteomyelitis Sacral decubitus ulcer Toe ulcer Social History Smoking/Tobacco Use Status: Former Tobacco Use Smoking risk assessment performed?: Yes Alcohol Intake: former Substance use type: does not use Do you feel safe at home: Yes Do you feel safe in your relationship?: Yes Exam Narrative Exam Narrative: He is in no current distress. He is cooperative. His vital signs are documented elsewhere His abdomen is soft with no peritoneal signs He is awake and alert Results Last Vital Signs Temp 37.0 C 12/31/20 11:29 Pulse 63 12/31/20 11:29 Resp 20 12/31/20 11:29 BP 135/68 12/31/20 11:29 Pulse Ox 99 12/31/20 11:29 Labs Result diagrams: 12/31/20 06:50 12/29/20 06:35 Insert Bladder Catheter Text: The patient was seen at his bedside. He was placed in the supine position. His genitalia was prepped. 2% Xylocaine jelly was instilled into the urethra to act as a local anesthetic. Initially, I attempted to pass a 16 Georgian catheter through the urethra but I met resistance at the expected level of the external sphincter. I then switched to a 16 Georgian coud? tip catheter and was able to pass the catheter through the urethra into the bladder. The catheter balloon was inflated with 10 cc of sterile water. The catheter was then hooked to gravity drainage. Clear urine was obtained. Some bleeding mixed with excess gel oozed around the exterior of the catheter. He tolerated this procedure well.
--- NOTE | 2021-01-01 17:31 | NUR.NOTE ---
small amount of blood noted beneath nostril, patient stated to RN Loan that this has been happening on and off. Cleaned up blood. Nursing Note:
[2021-01-01] MEDS: Normal Saline Flush 10 ML SYR IVP (19:53)
[2021-01-01] MEDS: Senna TAB PO (21:36)
[2021-01-02] MEDS: Allopurinol 300 MG TAB PO (07:42)
[2021-01-02] MEDS: Potassium Chloride 10 MEQ CAPCR PO (07:42)
[2021-01-02] MEDS: Polyethylene Glycol 3350 17 GM PACKET PO (07:42)
[2021-01-02] MEDS: Losartan 25 MG TAB PO (07:42)
[2021-01-02] MEDS: Ciprofloxacin 500 MG TAB PO (07:42)
[2021-01-02] MEDS: Dronabinol 2.5 MG CAP PO ×2 (07:43→20:01)
[2021-01-02] MEDS: Acyclovir 400 MG TAB PO (07:43)
[2021-01-02] MEDS: hydroCHLOROthiazide 25 MG TAB PO (07:43)
[2021-01-02] MEDS: Magnesium Oxide 400 MG TAB PO ×2 (07:43→20:01)
[2021-01-02] MEDS: Docusate Sodium 100 MG CAP PO ×2 (07:43→20:01)
--- NOTE | 2021-01-02 08:13 | PCPN_ITS ---
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 He has been receiving blood products daily while he has been hospitalized at [facility]. He is also being treated for osteomyelitis of the right hallux as well as for a sacral decubitus ulcer. He was seen by palliative care in follow-up today. After our last visit, he decided not to continue to receive blood products and transitioned to comfort focused care. He reports that he is comfortable, he denies any pain at all. He had nosebleeds overnight. He is fixated on needing to get his checkbook and pay his bills. Care management will address these concerns. We discussed where he wants to be when he drives. He states he would rather not to be in the hospital, he has been to [facility] and [facility] before and he liked it there. He would agree to transfer to [facility] for end-of-life care. It is unclear if this is something that can happen right away. He is expected to decline quickly now that he is not receiving blood products. Continue comfort focused care. He is a DNR/DNI, he has a COLST on file reflecting his wishes. Subjective Subjective Interval history since last seen: Eyad was seen in his hospital room, he denies any pain at all. He had nosebleeds overnight. He has a jackson in place. He is worried about getting his check book and paying rent. We talked again about how he is nearing the end of his life. We discussed where he wants to be when he dies. He would rather not be at the hospital. He would agree to [facility], he has been there before and he liked it there. Exam Narrative Exam Narrative: General: pleasant, elderly man, laying in bed, awake and alert, talkative. Answers questions appropriately. Skin is Pale. No active bleeding visualized. HEENT: normocephalic, atraumatic, pupils equal and round, EOMI, mucous membranes moist. Neck: supple, no JVD. Cardiovascular: heart sounds regular, nontachycardic, no murmur. Respiratory: respirations are even and unlabored, lung sounds are clear throughout. GI: +BS, soft, nontender on palpation, nondistended. Extremities: +2 pitting edema to bilateral lower extremities. Objective Last Vital Signs Temp 37.0 C 12/31/20 11:29 Pulse 63 12/31/20 11:29 Resp 20 12/31/20 11:29 BP 135/68 12/31/20 11:29 Pulse Ox 99 12/31/20 11:29
--- NOTE | 2021-01-02 10:26 | PDOC.CMPRO ---
- If Service Date Differs Date of service: 01/02/21 Time of Service: 14:31 Care Management Progress Note S/O: Eyad is lying in bed appearing comfortable at this time; he asked CM to contact his neighbor Sylvie and request she visit him, if able. CM emailed Sylvie to notify of the request. CM continues to follow. No change to overall plan. A: Mariana is a 75 year old male admitted to [facility] on 12/25/2020 for osteomyelitis. P: Eyad will discharge to [facility] with Hospice support or remain at [facility] for end of life care; to be determined by his presentation over the weekend. CM continues to follow and support.
--- NOTE | 2021-01-02 12:53 | NUR.NOTE ---
TREASURY SPECIALIST Edie requested RN Kimberly Rodríguez to place drain sponges over penis as padding and wrap penis with kerlix and then tape to soak up some of the bleeding from the insertion site. Nursing Note:
--- NOTE | 2021-01-02 12:58 | W.PM.PROGNOT ---
Date of Service Date of service: 01/02/21 Time of Service: 12:58 Assessment and Plan Assessment and plan (1) Comfort measures only status: Start date: 01/02/21 Start time: 13:04 Status: Acute Assessment and plan: After meeting with palliative care patient has decided to transition to [employer]. He will no longer be receiving transfusions He is bleeding out from his nose and penis. He would like to at [facility] and rehab but he is looking pale and bleeding quite a lot he denies pain at this time. discussed with Dr. Ruiz Subjective Subjective Patient reports: other Interval history since last seen: Patient continues to bleed from penis, will have nursing apply pressure drsg around jackson site. Otherwise no complaints. Exam Narrative Exam Narrative: General: pleasant, elderly man, laying in bed, awake and alert, talkative. Answers questions appropriately. Skin is Pale. Actively bleeding from penis will have nursing place pressure drsg. HEENT: normocephalic, atraumatic, pupils equal and round, EOMI, mucous membranes moist. Neck: supple, no JVD. Cardiovascular: heart sounds regular, nontachycardic, no murmur. Respiratory: respirations are even and unlabored, lung sounds are clear throughout. GI: +BS, soft, nontender on palpation, nondistended. Extremities: +2 pitting edema to bilateral lower extremities. Objective Last Vital Signs Temp 37.0 C 12/31/20 11:29 Pulse 63 12/31/20 11:29 Resp 20 12/31/20 11:29 BP 135/68 12/31/20 11:29 Pulse Ox 99 12/31/20 11:29
[2021-01-02 15:27] LABS: Platelet Count 9 10^3/uL (130-400)
[2021-01-02] MEDS: MORPHine 4 MG/ML SYR IV/SC (16:23)
[2021-01-02] MEDS: Normal Saline Flush 10 ML SYR IVP (16:23)
[2021-01-02] MEDS: Senna TAB PO (21:47)
[2021-01-03] MEDS: Docusate Sodium 100 MG CAP PO ×2 (07:42→20:20)
[2021-01-03] MEDS: Dronabinol 2.5 MG CAP PO ×2 (07:42→20:20)
[2021-01-03] MEDS: Magnesium Oxide 400 MG TAB PO ×2 (07:42→20:20)
[2021-01-03] MEDS: Potassium Chloride 10 MEQ CAPCR PO (07:42)
--- NOTE | 2021-01-03 12:25 | W.PM.PROGNOT ---
Date of Service Date of service: 01/03/21 Time of Service: 12:25 Assessment and Plan Assessment and plan (1) Comfort measures only status: Start date: 01/03/21 Start time: 12:28 Status: Acute Assessment and plan: After meeting with palliative care patient has decided to transition to [employer] [facility]. He will no longer be receiving transfusions He is bleeding out from his nose and penis, blood starting to pool in other areas of his body. He is sleeping today, fragile and appears to be pale and weak. He likely will not make it through the weekend. He would like to at health and rehab he is showing no signs of pain at this time. discussed with Dr. Gomes Subjective Subjective Patient reports: no new complaints Interval history since last seen: sleeping comfortable. Blood pooling in different areas of body. Elbows swollen likely with blood. Appears comfortable did not want to disturb Exam Narrative Exam Narrative: Elderly male, actively dying. sleeping at this time, did not want to disturb. Bleeding out from penis and intermittent epistasis. He was laying on his side elbow facing toward me, swollen confluent felt fluid in there likely blood. He does not have long. He would like to at H/R but I would be surprised if he survives the weekend. He appears pale and fragile, but comfortable. Objective Last Vital Signs Temp 37.0 C 12/31/20 11:29 Pulse 63 12/31/20 11:29 Resp 20 12/31/20 11:29 BP 135/68 12/31/20 11:29 Pulse Ox 99 12/31/20 11:29 Laboratory Results - last 24 hr 12/25/20 18:15 Plt Count 9 L*
--- NOTE | 2021-01-03 13:14 | CMPROGNOTE_ITS ---
Care Management Progress Note S/O: Eyad continues to decline, he appears comfortable and is being monitored closely during end of life care; CM continues to follow. A: Mariana is a 75 year old male admitted to [facility] on 12/25/2020 for osteomyelitis. P: Eyad will discharge to [facility] with Hospice support or remain at [facility] for end of life care; to be determined by his presentation over the weekend. CM continues to follow and support.
--- NOTE | 2021-01-03 13:14 | PDOC.CMPRO ---
Care Management Progress Note S/O: Eyad continues to decline, he appears comfortable and is being monitored closely during end of life care; CM continues to follow. A: Mariana is a 75 year old male admitted to [facility] on 12/25/2020 for osteomyelitis. P: Eyad will discharge to [facility] with Hospice support or remain at [facility] for end of life care; to be determined by his presentation over the weekend. CM continues to follow and support.
[2021-01-03] MEDS: Normal Saline Flush 10 ML SYR IVP (20:32)
[2021-01-03] MEDS: Senna TAB PO (21:24)
[2021-01-04] MEDS: Glycopyrrolate 0.2 MG/1 ML VIAL IVP ×2 (06:44→13:46)
[2021-01-04] MEDS: Normal Saline Flush 10 ML SYR IVP ×2 (06:44→13:47)
[2021-01-04] MEDS: Dronabinol 2.5 MG CAP PO ×2 (07:37→21:10)
[2021-01-04] MEDS: Potassium Chloride 10 MEQ CAPCR PO (07:37)
[2021-01-04] MEDS: Docusate Sodium 100 MG CAP PO ×2 (07:37→21:10)
[2021-01-04] MEDS: Magnesium Oxide 400 MG TAB PO ×2 (07:37→21:11)
--- NOTE | 2021-01-04 11:13 | CMPROGNOTE_ITS ---
- If Service Date Differs Date of service: 01/04/21 Time of Service: 11:13 Care Management Progress Note S/O: Eyad appears comfortable and has been sleeping most of the day. He continues to bleed from his penis but has not had any nosebleeds or other bleeding today. He remains on comfort measures and is receiving end of life care. A: Mariana is a 75 year old male admitted to [facility] on 12/25/2020 for osteomyelitis. P: Eyad will discharge to [facility]& with Hospice support or remain at [facility] for end of life care; to be determined by his presentation over the weekend. CM continues to follow and support.
--- NOTE | 2021-01-04 13:34 | W.PM.PROGNOT ---
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 He is sleeping today, fragile and appears to be more pale and weak. He likely will not make it through the weekend. though he is still eating He would like to at health and rehab He did c/o pain today and was given morphine also having secretions medicated for this as well. discussed with Dr. Gomes Subjective Subjective Patient reports: other Interval history since last seen: Patient sleeping appearing more pale, but comfortable, he is sleeping more today, he does wake throughout the day at different periods. He is still eating. Different areas of the body are starting to appear with edema elbows especially likely with blood. He continues to bleed from his penis, it likely will not be long. Given morphine for pain earlier today. Exam Narrative Exam Narrative: Elderly male, actively dying. sleeping at this time, did not want to disturb. Bleeding out from penis and no epistasis. He was laying on his side elbow facing toward me, swollen confluent felt fluid in there likely blood. He does not have long. He would like to at H/R but I would be surprised if he survives the weekend. He appears more pale today and fragile, but comfortable. He is having secretions and getting glycopyrrolate and socpalomine Objective Last Vital Signs Temp 37.0 C 12/31/20 11:29 Pulse 63 12/31/20 11:29 Resp 20 12/31/20 11:29 BP 135/68 12/31/20 11:29 Pulse Ox 99 12/31/20 11:29
[2021-01-04] MEDS: Scopolamine 1 MG/3 DAYS PATCH TD (13:47)
[2021-01-04] MEDS: Senna TAB PO (21:10)
[2021-01-05] MEDS: MORPHine 4 MG/ML SYR IV/SC ×6 (03:35→13:21)
[2021-01-05] MEDS: Normal Saline Flush 10 ML SYR IVP ×5 (03:36→13:20)
[2021-01-05] MEDS: LORazepam 2 MG/ML VIAL IV/SC ×5 (03:50→13:19)
[2021-01-05] MEDS: Ondansetron 4 MG/2 ML VIAL IVP (09:03)
[2021-01-05] MEDS: fentaNYL 25 MCG PATCH TD (10:01)
[2021-01-05] MEDS: Acetaminophen 650 MG SUPP PR (11:25)
[2021-01-05] MEDS: LORazepam 1 MG TAB PO (12:11)
--- NOTE | 2021-01-05 13:04 | W.PM.PROGNOT ---
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 Unresponsive fentanyl patch applied for pain this am. apneic respirations. continue to monitor comfort status. discussed with Dr. Gomes Subjective Subjective Patient reports: no new complaints and other Interval history since last seen: Unresponsive at this time, with apneic respirations. Exam Narrative Exam Narrative: Elderly male, actively dying. unresponsive, apneic respirations. continue to monitor for comfort. Objective Last Vital Signs Temp 37.0 C 12/31/20 11:29 Pulse 63 12/31/20 11:29 Resp 20 12/31/20 11:29 BP 135/68 12/31/20 11:29 Pulse Ox 99 12/31/20 11:29
[2021-01-05] MEDS: Glycopyrrolate 0.2 MG/1 ML VIAL IVP (13:21)
--- NOTE | 2021-01-05 13:51 | EXPE_ITS ---
Date of service: 01/05/21 Time of Service: 13:51 Discharge Sum: Prov Provider Consults: 12/25/20 22:20 Wound Care Consult [CONS] Routine Consultation Status:: Contact made by Clarification:: Manage/follow per spec. Reason for consult:: decubitus ulcers 12/25/20 23:55 Podiatry Consult [CONS] Routine Consultation Status:: Follow-up needed Clarification:: Manage/follow per spec. Reason for consult:: R great toe ulcer and evidence of osteomyelitis on xray. 12/26/20 08:55 Palliative Care Consult [CONS] Routine Consultation Status:: Follow-up needed Clarification:: Manage/follow per spec. 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 Reason for consult:: PRN 01/01/21 11:52 Urology Consult [CONS] Routine Consulting Provider: Jai Cordero Consultation Status:: Follow-up needed Clarification:: Manage/follow per spec. Reason for consult:: place indwelling catheter, severe thrombocytopenia Discharge Sum: Diag PCOD Cause of : Myelodysplastic syndrome Contributing Factors (1) Pancytopenia: (2) Right hallux osteomyelitis: (3) Prostate cancer: Discharge Sum: Summary Date and Time Admission Date: 12/25/2105/24/21 21:20 Date of : 01/05/21 Time of : 13:36 Summary Details: Mr Chamorro is a 75 y.o male with PMHx of transfusion dependent MDS, prostate cancer, IDDM, HTN, HLD, followed by the [facility] was admitted to [facility] hospitalist service on 12/25/20 for pancytopenia with symptomatic anemia as well as osteomyelitis of R great toe and a sacral decubitus ulcer, having been evaluated by home health nursing and felt to be more fatigued than his baseline. He had been transfusion dependent. In the ED, he was found to be pancytopenic with ANC of 150, H/H of 7.0/21.7 and plt count of 6. He admitted that he had some recent hematuria for which he underwent a cystoscopy last week for evaluation of hemorrhagic cystitis. [facility] was attempted but declined due to capacity at [facility] and [facility] Rosas of podiatry evaluated the patient's right great toe and did suggest a possible surgical amputation. Meanwhile, the patient was being treated with antibiotics. The patient received transfusions of blood and platelets daily during his stay until he expressed his readiness to stop transfusions in a conversation with palliative care and move on to comfort measures only on 12/31/20. The patient was seen by Dr Cordero for insertion of jackson catheter for comfort measures. The patient's symptoms of epistaxis, hematuria, ecchymoses (all results of MDS/thrombocytopenia), and pain with managed supportively with medications. He peacefully on 01/05/21 at 13:36 and was pronounced at 13:38. We appreciate the opportunity to help take care of the patient in his final days and wish his loved ones well. Additional Data Confirmation of as documented by pronouncing clinician: no pulse, no respirations, no heart sounds and pupils fixed and dilated Family: contacted Attending/PCP notified?: Yes Attending Physician: Rusty Alvarado MD Was code activated?: No (DNR/DNI/ comfort measures only) Autopsy requested?: No driver examiner n otified?: No Organ bank notified?: Yes Advance directives: Yes Hospice patient?: No
== END 2021-01-05 13:38 | disposition expired | DRG 539 ==
LOC: ER 21:46 → MS 22:24
PROVIDERS: General Practice; Internal Medicine; Nurse Practitioner; Nurse Practitioner Family; Admitting Provider Family Medicine; Emergency Provider Student in an Organized Health Care Education/Training Program; Visit Provider Family Medicine
DX: M86.8X7 Other osteomyelitis, ankle and foot (principal); L89.153 Pressure ulcer of sacral region, stage 3; D61.818 Other pancytopenia; Z51.5 Encounter for palliative care; L97.519 Non-pressure chronic ulcer of other part of right foot with unspecified severity; C61 Malignant neoplasm of prostate; Z87.891 Personal history of nicotine dependence; Z20.822 Contact with and (suspected) exposure to COVID-19; D46.9 Myelodysplastic syndrome, unspecified; D70.9 Neutropenia, unspecified; R50.81 Fever presenting with conditions classified elsewhere; Z66 Do not resuscitate
CPT/HCPCS: 36410; 36415; 36430; 36592; 51703; 73521; 80048; 80053; 85027; 86850; 86900; 86901; 86920; 86945; 87040; 87635; 96365; 96367; 97162; 97166; 97535; 99222; 99285; P9073; 71045; 71046; 73660; 80202; 81003; 81015; 83605; 83735; 83880; 84443; 84484; 85025; 87070; 87086; 99223; 99231; 99232; 99233; 99238; J0744; J2060; J2270; J2405; J3490; P9016; P9035

== ENCOUNTER 2020-12-29 02:50 | Outpatient (RCR) | payer OTHER, SELFPAY ==
[2020-12-02 00:09] VITALS: BP 148/65; PULSE 50; RESP 16; TEMP 36.5
[2020-12-04] VITALS (12 sets, daily range): BP systolic 124–160; BP diastolic 50–78; PULSE 53–96; RESP 16; TEMP 36.4–37; O2SAT 98–100
[2020-12-04 09:44] LABS: Absolute Lymphocyte Count 0.26 10^3/uL (1.2-3.4); MCH 29.4 pg (27.0-33.0); MCHC 33.7 % (32.0-36.0); MCV 87.4 fL (80-95); Nucleated RBC 0 %; RBC 2.31 10^6/uL (4.36-5.78); RDW 14.4 % (11.8-14.1); RDW-SD 45.4 fL
[2020-12-04 09:48] LABS: Platelet Count 9 10^3/uL (130-400)
[2020-12-04 09:49] LABS: HCT 20.2 % (40.0-50.0); HGB 6.8 g/dL (13.5-17.5); WBC 0.32 10^3/uL (4.4-10.8)
[2020-12-04 10:02] LABS: Absolute Monocyte Count 0.05 10^3/uL (0.1-0.8); Absolute Neutrophil Count 0.02 10^3/uL (1.2-6.7); Diff Comment Manual Differential; Microcytosis 1+
[2020-12-04] MEDS: Normal Saline Flush 10 ML SYR IVP (11:57)
[2020-12-08] VITALS (8 sets, daily range): BP systolic 127–150; BP diastolic 44–64; PULSE 50–55; RESP 18–19; TEMP 36.5–36.7; O2SAT 98–100
[2020-12-08 09:57] LABS: Abs Immature Grans 0.01 10^3/uL (0.0-0.06); Absolute Lymphocyte Count 0.27 10^3/uL (1.2-3.4); Absolute Monocyte Count 0.04 10^3/uL (0.1-0.8); HCT 21.7 % (40.0-50.0); Immature Grans % 2.9; Lymphocytes % 79.4; MCH 28.6 pg (27.0-33.0); MCHC 32.3 % (32.0-36.0); MCV 88.6 fL (80-95); Monocytes % 11.8; Neutrophils % 5.9; Nucleated RBC 0 %; RBC 2.45 10^6/uL (4.36-5.78); RDW-SD 44.8 fL
--- NOTE | 2020-12-08 10:06 | DI.RAD_ITS ---
Exam(s) XR PORTABLE CHEST AP POST LINE EXAM: XR PORTABLE CHEST AP POST LINE CLINICAL HISTORY: post PICC line TECHNIQUE: 2D digital imaging was performed. COMPARISON: CR,XR XR CHEST 2V PA LATERAL from 09/08/2020 FINDINGS: MEDIASTINUM: Normal. HEART: Normal. PULMONARY VASCULATURE: Normal. LUNGS: There has been no change in appearance of the lungs compared to 09/08/2020. No new infiltrates or nodules are seen. PLEURAL SPACE: No pleural effusion or pneumothorax. BONE:Within normal limits for the patient's age. OTHER FINDINGS:The tip of the left PICC line is in good position in the superior vena cava. IMPRESSION: Tip of the left PICC line is in good position in the superior vena cava. DATA REPOSITORY: RADIATION DOSE DELIVERED:
[2020-12-08 10:35] LABS: WBC 0.34 10^3/uL (4.4-10.8)
[2020-12-08 10:37] LABS: Absolute Neutrophil Count 0.02 10^3/uL (1.2-6.7); Diff Comment Agrees w/ Instrument; Hypochromasia 2+; Platelet Count 5 10^3/uL (130-400); Poikilocytes 1+
[2020-12-08 13:48] LABS: ALT 10 U/L (16-63); AST 10 U/L (15-37); Albumin 2.9 g/dL (3.4-5.0); Alkaline Phosphatase 108 U/L (46-116); Anion Gap 4.3 mmol/L (3-11); BUN 18 mg/dL (7-18); Bilirubin, Total 1.2 mg/dL (0.2-1.0); CO2 31.7 mmol/L (21.0-32.0); CREATININE 0.9 mg/dL (0.70-1.30); Calcium 8.5 mg/dL (8.5-10.1); Chloride 105 mmol/L (98-107); Glucose 158 mg/dL (74-106); Potassium 4.2 mmol/L (3.5-5.1); Sodium 141 mmol/L (136-145); Total Protein 6.2 g/dL (6.4-8.2)
[2020-12-08] MEDS: Normal Saline Flush 10 ML SYR IVP (14:39)
[2020-12-11] VITALS (9 sets, daily range): BP systolic 119–159; BP diastolic 51–71; PULSE 42–110; RESP 16–18; TEMP 36.5–37.1; O2SAT 98–100
[2020-12-11] MEDS: Normal Saline Flush 10 ML SYR IVP (07:38)
[2020-12-11 08:04] LABS: Abs Immature Grans 0.01 10^3/uL (0.0-0.06); HCT 23.8 % (40.0-50.0); HGB 7.7 g/dL (13.5-17.5); MCH 29.1 pg (27.0-33.0); MCHC 32.4 % (32.0-36.0); MCV 89.8 fL (80-95); Nucleated RBC 0 %; RBC 2.65 10^6/uL (4.36-5.78); RDW 13.7 % (11.8-14.1); RDW-SD 45.1 fL
[2020-12-11 08:29] LABS: Absolute Eosinophil Count 0.01 10^3/uL (0.0-0.7); Absolute Lymphocyte Count 0.27 10^3/uL (1.2-3.4); Absolute Monocyte Count 0.02 10^3/uL (0.1-0.8); Absolute Neutrophil Count 0.01 10^3/uL (1.2-6.7); Platelet Count 3 10^3/uL (130-400); WBC 0.35 10^3/uL (4.4-10.8)
[2020-12-11 08:30] LABS: Diff Comment Manual Differential; Other Cells % 14; RBC Morphology Normal
[2020-12-15] MEDS: Normal Saline Flush 10 ML SYR IVP (08:19)
[2020-12-15 08:49] LABS: Absolute Monocyte Count 0.08 10^3/uL (0.1-0.8); HCT 24.8 % (40.0-50.0); MCH 28.7 pg (27.0-33.0); MCHC 32.3 % (32.0-36.0); MCV 88.9 fL (80-95); Nucleated RBC 0 %; RBC 2.79 10^6/uL (4.36-5.78); RDW 13.5 % (11.8-14.1); RDW-SD 44.3 fL
[2020-12-15 09:02] LABS: Platelet Count 5 10^3/uL (130-400); WBC 0.39 10^3/uL (4.4-10.8)
[2020-12-15 09:05] LABS: ALT 8 U/L (16-63); AST 13 U/L (15-37); Albumin 3.1 g/dL (3.4-5.0); Alkaline Phosphatase 129 U/L (46-116); BUN 18 mg/dL (7-18); Bilirubin, Total 1.3 mg/dL (0.2-1.0); CREATININE 0.9 mg/dL (0.70-1.30); Chloride 103 mmol/L (98-107); Glucose 76 mg/dL (74-106); Potassium 3.7 mmol/L (3.5-5.1); Sodium 141 mmol/L (136-145); Total Protein 6.7 g/dL (6.4-8.2)
[2020-12-15 09:26] LABS: Absolute Lymphocyte Count 0.26 10^3/uL (1.2-3.4); Absolute Neutrophil Count 0.05 10^3/uL (1.2-6.7)
[2020-12-15 09:27] LABS: Diff Comment Manual Differential; RBC Morphology Normal
[2020-12-15 09:28] VITALS: BP 133/75; PULSE 101; RESP 20; TEMP 37.1; O2SAT 97
[2020-12-15 14:20] VITALS: BP 123/66; PULSE 102; RESP 18; TEMP 37.1; O2SAT 98
[2020-12-18] VITALS (8 sets, daily range): BP systolic 144–157; BP diastolic 64–78; PULSE 60–115; RESP 16–20; TEMP 36.7–37.3; O2SAT 95–100
[2020-12-18 08:37] LABS: Abs Immature Grans 0.03 10^3/uL (0.0-0.06); HCT 23.7 % (40.0-50.0); HGB 7.7 g/dL (13.5-17.5); MCH 28.8 pg (27.0-33.0); MCHC 32.5 % (32.0-36.0); MCV 88.8 fL (80-95); MPV 9.5 fL (8.0-11.0); Nucleated RBC 0 %; RBC 2.67 10^6/uL (4.36-5.78); RDW 13.4 % (11.8-14.1); RDW-SD 43.6 fL
[2020-12-18 08:58] LABS: Absolute Lymphocyte Count 0.36 10^3/uL (1.2-3.4)
[2020-12-18 08:59] LABS: Absolute Monocyte Count 0.05 10^3/uL (0.1-0.8); Metamyelocytes % 1; Myelocytes % 1
[2020-12-18 09:01] LABS: RBC Morphology Normal; WBC 0.48 10^3/uL (4.4-10.8)
[2020-12-18 09:02] LABS: Absolute Neutrophil Count 0.06 10^3/uL (1.2-6.7); Diff Comment Manual Differential; Platelet Count 7 10^3/uL (130-400)
[2020-12-18] MEDS: Normal Saline Flush 10 ML SYR IVP (10:13)
[2020-12-22 09:05] LABS: Absolute Monocyte Count 0.09 10^3/uL (0.1-0.8); HCT 22.9 % (40.0-50.0); HGB 7.4 g/dL (13.5-17.5); MCH 28.9 pg (27.0-33.0); MCHC 32.3 % (32.0-36.0); MCV 89.5 fL (80-95); MPV 7.8 fL (8.0-11.0); Nucleated RBC 0 %; RBC 2.56 10^6/uL (4.36-5.78); RDW 13.7 % (11.8-14.1); RDW-SD 45.1 fL
[2020-12-22] MEDS: Normal Saline Flush 10 ML SYR IVP (09:09)
[2020-12-22 09:11] LABS: Platelet Count 5 10^3/uL (130-400); WBC 0.55 10^3/uL (4.4-10.8)
[2020-12-22 09:16] VITALS: BP 113/67; PULSE 103; RESP 20; TEMP 36.7; O2SAT 97
[2020-12-22 09:17] LABS: ALT 13 U/L (16-63); AST 13 U/L (15-37); Albumin 3.1 g/dL (3.4-5.0); Alkaline Phosphatase 128 U/L (46-116); Anion Gap 12.3 mmol/L (3-11); BUN 17 mg/dL (7-18); Bilirubin, Total 1.2 mg/dL (0.2-1.0); CO2 28.7 mmol/L (21.0-32.0); CREATININE 1.2 mg/dL (0.70-1.30); Calcium 9.5 mg/dL (8.5-10.1); Chloride 99 mmol/L (98-107); Estimated GFR 59.35 (mL/min/1.73m2); Glucose 156 mg/dL (74-106); Potassium 4.1 mmol/L (3.5-5.1); Sodium 140 mmol/L (136-145); Total Protein 6.8 g/dL (6.4-8.2)
[2020-12-22 09:21] LABS: Absolute Lymphocyte Count 0.31 10^3/uL (1.2-3.4); Absolute Neutrophil Count 0.15 10^3/uL (1.2-6.7); Diff Comment Manual Differential; RBC Morphology Normal
[2020-12-23] VITALS (9 sets, daily range): BP systolic 126–158; BP diastolic 55–70; PULSE 59–97; RESP 16–20; TEMP 36.6–37; O2SAT 99–100
[2020-12-25] VITALS (9 sets, daily range): BP systolic 128–183; BP diastolic 47–73; PULSE 58–111; RESP 16–18; TEMP 36.5–37.2; O2SAT 97–100
[2020-12-25] MEDS: Normal Saline Flush 10 ML SYR IVP (08:31)
[2020-12-25 08:40] LABS: Abs Immature Grans 0.07 10^3/uL (0.0-0.06); Absolute Eosinophil Count 0.01 10^3/uL (0.0-0.7); HGB 7.5 g/dL (13.5-17.5); MCHC 32.6 % (32.0-36.0); MCV 88.8 fL (80-95); Nucleated RBC 0 %; RBC 2.59 10^6/uL (4.36-5.78); RDW-SD 45.4 fL
[2020-12-25 09:35] LABS: WBC 0.67 10^3/uL (4.4-10.8)
[2020-12-25 09:37] LABS: Platelet Count 6 10^3/uL (130-400)
[2020-12-25 09:42] LABS: Absolute Neutrophil Count 0.15 10^3/uL (1.2-6.7); Bands % 2
[2020-12-25 09:43] LABS: Absolute Lymphocyte Count 0.36 10^3/uL (1.2-3.4); Absolute Monocyte Count 0.12 10^3/uL (0.1-0.8); Atypical Lymphocytes % 6
[2020-12-25 09:44] LABS: Other Cells % 4; Poikilocytes 1+
[2020-12-25 09:45] LABS: Diff Comment Manual Differential
== END 2020-12-31 23:59 | disposition home or self-care (01) ==
LOC: INF 02:50
PROVIDERS: Visit Provider Internal Medicine Hematology & Oncology
DX: D46.Z Other myelodysplastic syndromes (principal); Z45.2 Encounter for adjustment and management of vascular access device
CPT/HCPCS: 36415; 36430; 36573; 36591; 36592; 71045; 80053; 86850; 86900; 86901; 86920; 96523; P9073; 85025; P9016; P9035